=== PATIENT | female | born 2000 | race Caucasian/White ===

== ENCOUNTER 2023-09-26 04:57 | Inpatient (IN) | payer OTHER, SELFPAY ==
[2023-09-26] VITALS (48 sets, daily range): BP systolic 92–133; BP diastolic 37–78; PULSE 54–108; RESP 15–20; TEMP 36.1–36.6; O2SAT 96–100; BMI 42.0
--- NOTE | 2023-09-26 05:33 | LDADM ---
This patient, Sriram Ghosh, was admitted to Labor/Delivery/Recovery 120 on 09/26/23 at 04:57. Plans for labor, pain management and were discussed with patient. Patient/family oriented to hospital policies and general routines including ID bracelet, bed and alarms, visiting hours, pain management, procedures, bathroom and other care routines, personal items, smoking policy, room service/diet and guest tray routines, security routines, and visiting hours. Patient/Family are encouraged to report perceived risks to care and to ask questions if they do not understand what they are told or what they should do. See OBIX for further documentation.
[2023-09-26 05:56] LABS: Basophils Absolute Auto 0.1 K/mm3 (0.0-0.1); Basophils Percent Auto 0.4 % (0.2-1.2); Eosinophils Absolute Auto 0.2 K/mm3 (0-0.3); Eosinophils Percent Auto 1.6 % (0-4.4); Hemoglobin 11.3 g/dL (12.0-15.0); Immature Granulocyte Absolute 0.16 K/mm3 (0.00-0.031); Immature Granulocyte Percent A 1.4 % (0-0.5); Lymphocytes Absolute Auto 1.62 K/mm3 (0.9-3.2); Lymphocytes Percent Auto 14.2 % (18.3-44.2); Mean Corpuscular HGB Conc 32.3 g/dl (32-36); Mean Corpuscular Hemoglobin 27.1 pg (26-34); Mean Corpuscular Volume 83.9 fl (80-100); Mean Platelet Volume 10.1 fl (7.4-10.4); Monocytes Absolute Auto 0.9 K/mm3 (0.1-0.6); Monocytes Percent Auto 7.9 % (2.6-8.5); Neutrophils Absolute Auto 8.5 K/mm3 (1.3-6.7); Neutrophils Percent Auto 74.5 % (45.5-73.1); Platelet Count Result 301 k/mm3 (150-375); Red Blood Count 4.17 M/mm3 (4.2-5.4); Red Cell Distribution Width 13.6 % (11.5-14.5); White Blood Count 11.4 K/mm3 (4.5-10.0)
[2023-09-26] MEDS: ACETAMINOPHEN 500 MG TABLET 1000 MG PO (05:56)
[2023-09-26] MEDS: LACTATED RINGERS 1,000 ML 125 ML IV CONT ×2 (05:57→06:21)
--- NOTE | 2023-09-26 06:42 | WPDANESEPPF ---
Anes - Initial Pre Proc Eval Procedure: Operation Date: 09/26/23 07:30 Proposed Procedures p Section - Sami Kirkpatrick MD Date/Time: 09/26/23 06:42 Surgeon: Sami Kirkpatrick MD Pre Op Diagnosis: Scheduled C/S Patient Data Age: 22 Gender: F Height: 1.63 m Weight: 111 kg Last Vital Signs Pulse 88 09/26/23 06:30 BP 125/66 09/26/23 06:30 O2 Del Method Room Air 09/26/23 05:33 Allergies Allergy/AdvReac Type Severity Reaction Status Date / Time No Known Allergies Allergy Verified 09/09/23 13:52 Home Medications Medication Instructions Recorded Confirmed Type cyclobenzaprine 10 mg tablet 10 mg PO HS PRN stress 09/09/23 09/09/23 History prenat.vits,dorota,[id number] 1 tablet 09/09/23 History Laboratory Tests 09/26/23 05:43 WBC 11.4 H K/mm3 (4.5-10.0) RBC 4.17 L M/mm3 (4.2-5.4) Hgb 11.3 L g/dL (12.0-15.0) Hct 35.0 L % (37.0-47.0) MCV 83.9 fl (80-100) MCH 27.1 pg (26-34) MCHC 32.3 g/dl (32-36) RDW 13.6 % (11.5-14.5) Plt Count 301 k/mm3 (150-375) MPV 10.1 fl (7.4-10.4) Immature Gran % (Auto) 1.4 H % (0-0.5) Neut % (Auto) 74.5 H % (45.5-73.1) Lymph % (Auto) 14.2 L % (18.3-44.2) Treasure % (Auto) 7.9 % (2.6-8.5) Eos % (Auto) 1.6 % (0-4.4) Baso % (Auto) 0.4 % (0.2-1.2) Lymph # (Auto) 1.62 K/mm3 (0.9-3.2) Treasure # (Auto) 0.9 H K/mm3 (0.1-0.6) Eos # (Auto) 0.2 K/mm3 (0-0.3) Baso # (Auto) 0.1 K/mm3 (0.0-0.1) Abs Immat Gran (auto) 0.16 H K/mm3 (0.00-0.031) Absolute Neuts (auto) 8.5 H K/mm3 (1.3-6.7) Absolute Nucleated RBC 0.000 K/mm3 (0.0-0.012) Nucleated RBC % 0.0 % (0.0-0.2) RPR Pending HIV 1&2 Ab/P24 Ag 4thGn Pending Blood Type Pending Antibody Screen Pending Patient hx anesthesia problems: none Family hx anesthesia problems: none Results Review: All pre-operative results and documents have been reviewed as part of the pre-operative evaluation. [facility] Family History Family History (Updated 09/09/23 @ 13:57 by Kayla oLzano RN) Grandparent Breast cancer Social History Social History Smoking status: Former smoker Tobacco type: cigarettes Second hand tobacco smoke exposure: No Substance use: never Do You Feel Safe in your Home?: Yes Lack of Transportation: No Lack of Food: Never True Current Housing: I Have Housing Concerned About Future Housing: No Difficulty Paying Gas/Electric Bills: No Difficulty Paying for Meds: No Currently Unemployed: No Education: Grade School Difficulty w/ Childcare or Family Care: No Spiritual care concerns: No Anes - Eval Final PreProcedure Day of Procedure 09/26/23 06:42 Patient weight: morbidly obese Heart: regular rate and rhythm Lungs: clear to auscultation and normal air movement Airway: Mallampati scale class II Neurological: alert and oriented Last oral intake: >/= 8 hours ASA classification: III Emergent: no Anesthetic plan: proceed Anesthesia type and monitoring: regional spinal and standard monitoring Results Review: All pre-operative results and documents have been reviewed as part of the pre-operative evaluation. Informed Consent: The patient's anesthetic plan and its attendant risks and benefits were discussed with the patient/family/POA. Questions were solicited and answers provided to the satisfaction of the patient/family/POA.
[2023-09-26 06:47] LABS: HIV 1/2 Ab P24 Ag Result Negative (Negative)
--- NOTE | 2023-09-26 07:20 | PM.IMHP ---
H&P: HPI History of Present Illness Date/Time: 09/26/23 07:20 Chief Complaint: repeat c section Narrative: Patient is a 22 year old at 39w1d who presents for repeat c section, indicated for hx of two c sections. Her has been otherwise complicated by cystic fibrosis carrier. She denies strong contractions, leakage of fluid or vaginal bleeding. She reports good movement. She denies nausea, vomiting, abdominal pain, or dysuria. Review of Systems Review of Systems: All systems reviewed & are unremarkable except as noted in HPI and below PMFSH Family History Family History Grandparent Breast cancer Social History Social History Smoking status: Former smoker Tobacco type: cigarettes Second hand tobacco smoke exposure: No Substance use: never Do You Feel Safe in your Home?: Yes Lack of Transportation: No Lack of Food: Never True Current Housing: I Have Housing Concerned About Future Housing: No Difficulty Paying Gas/Electric Bills: No Difficulty Paying for Meds: No Currently Unemployed: No Education: Grade School Difficulty w/ Childcare or Family Care: No Spiritual care concerns: No Meds Home Medications and Allergies Home Medications Medication Instructions Recorded Confirmed Type cyclobenzaprine 10 mg tablet 10 mg PO HS PRN stress 09/09/23 09/09/23 History prenat.vits,dorota,[id number] 1 tablet 09/09/23 History Allergies Allergy/AdvReac Type Severity Reaction Status Date / Time No Known Allergies Allergy Verified 09/09/23 13:52 Vital Signs Vital Signs - 24 hr 09/26/23 05:33 09/26/23 06:02 09/26/23 06:15 Pulse Rate 82 84 Blood Pressure 125/69 122/66 Oxygen Delivery Room Air 09/26/23 06:30 09/26/23 06:45 09/26/23 07:00 Pulse Rate 88 87 91 Blood Pressure 125/66 126/75 122/68 Oxygen Delivery 09/26/23 07:16 Pulse Rate 87 Blood Pressure 126/46 L Oxygen Delivery Exam Const: General: comfortable and no acute distress HENMT: Mouth: Yes moist mucous membranes Eyes: General: appearance normal, both eyes and all related structures Resp: Effort & Inspection: normal respiratory effort Cardio: Rate: regular rate Extrem: General: normal to inspection Psych: Mental Status: mental status grossly normal H&P: Results Labs Labs: Short CBC 09/26/23 Range/Units 05:43 WBC 11.4 H (4.5-10.0) K/mm3 Hgb 11.3 L (12.0-15.0) g/dL Hct 35.0 L (37.0-47.0) % Plt Count 301 (150-375) k/mm3 Assessment and Plan Assessment and plan (1) Hx of section: Code(s): Z98.891 - History of uterine scar from previous surgery Status: Acute Assessment and Plan: - hx of c section x2 - risks and benefits of repeat c section discussed, patient desires repeat c section - otherwise uncomplicated - will proceed with repeat c section
[2023-09-26] MEDS: FAMOTIDINE 20 MG/2 ML VIAL IV PUSH (07:21)
[2023-09-26] MEDS: ONDANSETRON INJ 4 MG/2 ML VIAL IV PUSH (07:21)
[2023-09-26] MEDS: ceFAZolin 2 GM/D5W 50 ML 2 GM/50 ML BAG IVPB (07:30)
[2023-09-26] MEDS: OXYTOCIN 30 UNITS/NS 500 ML 30 UNITS/500 ML BAG 125 UNITS IV CONT (10:10)
[2023-09-26] MEDS: MORPHINE SULFATE INJ (*CRX) 10 MG/ML AMP 2.5 MG IV PUSH (10:37)
--- NOTE | 2023-09-26 11:05 | PC.NURSE ---
Patient transferred to post room #284 via stretcher.. Support person present. Oriented to unit, room, information board, rooming in, admission packet and security measures. Patient verbalizes understanding.
--- NOTE | 2023-09-26 11:49 | W.PM.OBCSD ---
OB - Delivery Note Procedure Delivery date: 09/26/23 Pre-op diagnosis: Previous Delivery (x2) Post-op Diagnosis: Same Delivery monitor: External FHT Prior to decision for section, ACOG/SMFM labor guidelines were considered and discussed with the patient and staff. Decision made to proceed with the section.: Yes Procedure Performed: Repeat Secondary branch: low cervical, transverse Surgeon: Sami Kirkpatrick MD Anesthesia type: Epidural Description of Procedure/Findings: The patient was taken to the operating room where she was placed in the dorsal supine position with a leftward tilt. The electronic monitor was placed and heart rate was found to be reassuring. She was prepped and draped in the normal sterile fashion, and anesthesia was checked to be adequate. A Pfannenstiel skin incision was made with the scalpel and carried through to the underlying layer of fascia with the scalpel. The fascia was incised in the midline and the incision extended laterally with the Moser scissors. The superior aspect of the fascial incision was then grasped with Ignacio clamps, elevated, and the underlying rectus muscles dissected off bluntly and with Moser scissors. Attention was then turned to the inferior aspect of the fascial incision, which in similar fashion was grasped, elevated, and the rectus muscles dissected off.? The rectus muscles were then in the midline, and the peritoneum entered bluntly. The peritoneal incision was extended superiorly and inferiorly with good visualization of the bladder. With the bladder blade providing retraction and visualization, the lower uterine segment was incised in a transverse fashion with the scalpel. The uterine incision was then extended laterally. The bladder blade was removed and the 's head was elevated and delivered atraumatically. The remainder of the infant was then delivered without difficulty, and the 's nose and mouth were suctioned with the bulb suction. The umbilical cord was doubly clamped and cut. The infant was then handed off to the waiting nursing staff. Specimens then obtained as listed below. The placenta was then removed manually and the uterus was exteriorized and cleared of all clots and debris. The uterine incision was repaired with 0-Monocryl in a running, interlocked fashion. A second layer of the same suture was used to imbricate the incision and obtain hemostasis. The posterior cul-de-sac was manually cleared of all clots and debris. The uterus was returned to the abdomen. The gutters were then manually cleared of all clots and debris.? The uterine incision was visualized to be hemostatic. The fascia was reapproximated with 0-Vicryl in a running fashion. The subcutaneous tissues were irrigated with warmed normal saline, and hemostasis was assured. The skin was closed with subcutaneous sutures. Fundal pressure was applied to express remaining intrauterine clots and debris. The patient tolerated the procedure well. Sponge, lap, and needle counts were correct times three per nursing. The patient was taken to the recovery room in stable condition. Specimen: No Estimated Blood Loss: 350 Pathology: None sent Complications: No immediate complications Condition: Stable Disposition: Floor [place] Baby Weeks of gestation at delivery: 39 Infant gender: Female Weight (pounds): 7 Weight (ounces): 11 presentation: vertex position: Left Occiput Posterior Placenta delivery description: Expressed Cord Vessel Description: 3 Vessels and Delayed Cord Clamping
[2023-09-26 13:56] LABS: Rapid Plasma Reagin Non-Reactive (NonReactive)
[2023-09-26] MEDS: DEXTROSE 5%/0.45% SOD CHL 1,000 ML 125 ML IV CONT (14:39)
[2023-09-26] MEDS: KETOROLAC 15 MG/ML VIAL (*BKC) IV PUSH ×2 (14:41→21:15)
[2023-09-26] MEDS: SIMETHICONE 80 MG TAB.CHEW PO ×2 (14:44→17:08)
[2023-09-26] MEDS: ACETAMINOPHEN 325 MG TABLET 650 MG PO ×2 (14:44→21:15)
[2023-09-26] MEDS: LIDOCAINE 5% PATCH 1 PATCH TRANSDERM (14:45)
[2023-09-26] MEDS: DOCUSATE SODIUM 100 MG CAPSULE PO (17:08)
--- NOTE | 2023-09-26 17:46 | PC.NURSE ---
1135. Introductions were made, then consulted with patient to assess needs related to . Mother led the conversation with her?plans to feed?her infant and the?experience so far. Encouraged understanding of the benefits of skin to skin (demonstrating unwrapping infant and placing upright on her chest), stimulating with massage touch, changing positions to encourage wakefulness, how to watch for early feeding cues, responsive feeding, feeding on demand (aiming for 8-12 times in 24 hours, about every 2-3 hours), milk production, building/maintaining a milk supply, duration of feeding, signs of adequate intake/output and how to record on the feeding sheet. Mother works well with her with encouragement and education. Reviewed positioning and ear, shoulder, hip alignment, supporting the breast to facilitate a deep latch, asymmetrical latch (off-center), leading with the chin with a big, open, wide gape and body close to mother. latched optimally to the [right] breast in [cross cradle] position. Education given to the mother of how to visualize the suckling (with good rocking jaw motion), swallows (dropping of the lower jaw) and how to listen for drinking at the breast (the ka sound). Infant was [able] to maintain latch without pain to mother protecting the nipple with optimal positioning and latching. Reviewed comfort measures of healing with a warm, wet washcloth to rinse breast, then leave open to air-dry, good handwashing when or touching the breast/nipples to prevent infection. Mother voiced understanding of skin to skin, stimulating with massage touch, responsive feedings, hand expressed colostrum, talking to infant to encourage if it has been 2 -2.5 hours since the start of the last , to call if infant does not latch, or if there is discomfort with . Resources used for education were facilitated with the [mom and baby guide]. Parents voiced understanding of information, demonstrated learning and will call if there is a request for assistance. Reported to the Primary RN.
[2023-09-26] MEDS: diphenhydrAMINE HCl INJ 50 MG/ML VIAL 25 MG IV PUSH (19:30)
[2023-09-27] MEDS: IBUPROFEN 600 MG TABLET PO ×3 (03:00→15:00)
[2023-09-27] MEDS: ACETAMINOPHEN 325 MG TABLET 650 MG PO ×4 (03:00→21:00)
[2023-09-27 04:57] LABS: Basophils Percent Auto 0.3 % (0.2-1.2); Eosinophils Absolute Auto 0.2 K/mm3 (0-0.3); Eosinophils Percent Auto 1.6 % (0-4.4); Hematocrit 33.5 % (37.0-47.0); Hemoglobin 10.6 g/dL (12.0-15.0); Immature Granulocyte Absolute 0.15 K/mm3 (0.00-0.031); Immature Granulocyte Percent A 1.3 % (0-0.5); Lymphocytes Absolute Auto 1.89 K/mm3 (0.9-3.2); Lymphocytes Percent Auto 16.4 % (18.3-44.2); Mean Corpuscular HGB Conc 31.6 g/dl (32-36); Mean Corpuscular Hemoglobin 26.9 pg (26-34); Mean Platelet Volume 10.4 fl (7.4-10.4); Monocytes Percent Auto 8.6 % (2.6-8.5); Neutrophils Absolute Auto 8.3 K/mm3 (1.3-6.7); Neutrophils Percent Auto 71.8 % (45.5-73.1); Platelet Count Result 261 k/mm3 (150-375); Red Blood Count 3.94 M/mm3 (4.2-5.4); Red Cell Distribution Width 13.8 % (11.5-14.5); White Blood Count 11.6 K/mm3 (4.5-10.0)
[2023-09-27 08:15] VITALS: BP 126/71; PULSE 79; RESP 16; TEMP 36.6; O2SAT 99
[2023-09-27] MEDS: MULTIVIT/MIN/PREN/FOL AC/IRON TABLET 1 TAB PO (09:17)
[2023-09-27] MEDS: DOCUSATE SODIUM 100 MG CAPSULE PO ×2 (09:18→17:01)
[2023-09-27] MEDS: SIMETHICONE 80 MG TAB.CHEW PO ×3 (09:18→17:01)
--- NOTE | 2023-09-27 11:15 | PC.NURSE ---
Mother verbalizes she is able to independently latch with appropriate positioning and alignment. She complains of nipple discomfort. She states she believes her nipples are just sore and that it isn't due to a latch issue. She has lanolin to use as needed. is currently meeting outcomes for weight, output, jaundice, blood sugar and feeding frequencies of 8-12 times in 24 hours. She was advised to wake infant because it had been over 3 hours since the last feeding. Mother states infant has been sleepy, and we discussed cluster feeding on night 2 and that if mom can provide effective and frequent feedings today it may make the night feedings less frequent. Observed a feeding on the left breast in football hold. Mother latched infant a few times until she felt it was a deep latch. The infant was well aligned and was having frequent swallows. Mother declines any additional assistance or education at this time. Mother is encouraged to call for assistance if her infant doesn?t latch, pain with latching, questions or concerns. Mother voiced understanding of information shared along with the mom/baby guide for an additional resource. Reported to the Primary RN.
[2023-09-27] MEDS: HYDROcodone/acetaminophen (*CRX) 5-325 MG TABLET 1 TAB PO (11:16)
--- NOTE | 2023-09-27 13:37 | WPDANLDPN2 ---
Anes-Prog Note L&D Date/Time: 09/27/23 13:37 Comfortable throughout: section Neuraxial method: spinal Epidural/Spinal procedure site: clean & non-tender Neuro status: Neuro function grossly intact. Cardiovascular status: normal Respiratory status: normal Airway patency: baseline Mental status: baseline Post-Op hydration status: normal Vital Signs: Last Vital Signs Temp 36.6 C 09/27/23 08:15 Pulse 79 09/27/23 08:15 Resp 16 09/27/23 08:15 BP 126/71 09/27/23 08:15 Pulse Ox 99 09/27/23 08:15 O2 Del Method Room Air 09/27/23 08:30 Pain score (VAS): 1 I/O: Intake & Output 09/26/23 09/27/23 09/27/23 23:59 07:59 15:59 Intake Total 240 0 Output Total 2850 400 Balance -2610 -400 0 Post-procedural complaints: none Patient feedback: Patient satisfied with anesthetic care.
--- NOTE | 2023-09-27 13:37 | WPDANLDNPN2 ---
Anes-Prog Note L&D-Neuraxial Date/Time: 09/27/23 13:37 Neuraxial medications: intrathecal PF morphine Opiod-related complaints: none Patient feedback: Patient satisfied with post-operative pain management.
[2023-09-27] MEDS: LIDOCAINE 5% PATCH 1 PATCH TRANSDERM (15:00)
[2023-09-27] MEDS: HYDROcodone/acetaminophen (*CRX) 10-325 MG TABLET 1 TAB PO ×2 (17:03→19:51)
[2023-09-27 20:00] VITALS: BP 131/80; PULSE 81; RESP 16; TEMP 36.7; O2SAT 96
[2023-09-28] MEDS: ACETAMINOPHEN 325 MG TABLET 650 MG PO ×4 (03:18→21:35)
[2023-09-28] MEDS: IBUPROFEN 600 MG TABLET PO ×4 (03:18→21:34)
[2023-09-28] MEDS: HYDROcodone/acetaminophen (*CRX) 10-325 MG TABLET 1 TAB PO (04:17)
[2023-09-28] MEDS: SIMETHICONE 80 MG TAB.CHEW PO ×2 (06:47→15:29)
[2023-09-28] MEDS: MULTIVIT/MIN/PREN/FOL AC/IRON TABLET 1 TAB PO (06:47)
[2023-09-28] MEDS: DOCUSATE SODIUM 100 MG CAPSULE PO (06:47)
[2023-09-28 08:15] VITALS: BP 137/80; PULSE 79; RESP 16; TEMP 37.2; O2SAT 98
--- NOTE | 2023-09-28 09:20 | PM.OBPNVD ---
OB - PN: Subj Subjective Date/time seen: 09/28/23 09:20 Interval history: POD#2 Doing well, pain well controlled Emptying bladder without issue Passing flatus Tolerating general diet , doing well OB - PN: Obj Data Labs 09/27/23 03:44 OB - PN A/P Assessment and Plan (1) S/P : Code(s): Z98.891 - History of uterine scar from previous surgery Status: Acute Plan day: 2 Plan: routine care Time Spent With Patient Time: Total time spent is greater than 50% in coordination of care (as documented) at patient's floor/unit and/or counseling patient: Review of Systems Review of Systems: All systems reviewed & are unremarkable except as noted in HPI and below Exam Const: General: comfortable and no acute distress Resp: Effort & Inspection: normal respiratory effort GI: GI Palp: Yes Soft to palpation and No Tenderness to palpation present (GI) Other: incision c/d/i
--- NOTE | 2023-09-28 11:50 | PC.NURSE ---
Mother verbalizes she is able to independently latch with appropriate positioning and alignment. She denies any nipple discomfort and is responsively . Infant is currently meeting outcomes for weight, output, jaundice, blood sugar and feeding frequencies of 8-12 times in 24 hours. Mother say she feels like her milk is in. Mother declines any additional assistance or education at this time. Mother is encouraged to call for assistance if her doesn?t latch, pain with latching, questions or concerns. Mother voiced understanding of information shared along with the mom/baby guide for an additional resource. Reported to the Primary RN.
[2023-09-28] MEDS: LIDOCAINE 5% PATCH 1 PATCH TRANSDERM (15:29)
[2023-09-28 18:30] VITALS: BP 129/72; PULSE 72; RESP 16; RESP 18; TEMP 37.1; O2SAT 99
--- NOTE | 2023-09-28 18:43 | PC.NURSE ---
Upon initial assessment at 1830, baby was found to be asleep in mothers arms in bed between pillows. Woke patient up at this time and removed baby to place in bassinet. Education given to mother regarding safe sleep practices. Mother verbalizes understanding. Mother states she was still tired upon leaving room. Baby was still in bassinet next to mother upon leaving room.
[2023-09-28] MEDS: HYDROcodone/acetaminophen (*CRX) 5-325 MG TABLET 1 TAB PO (20:39)
[2023-09-29] MEDS: ACETAMINOPHEN 325 MG TABLET 650 MG PO ×2 (04:00→10:42)
[2023-09-29] MEDS: IBUPROFEN 600 MG TABLET PO ×2 (04:00→10:42)
[2023-09-29 07:50] VITALS: BP 136/76; PULSE 79; RESP 16; TEMP 36.9; O2SAT 99
[2023-09-29] MEDS: MULTIVIT/MIN/PREN/FOL AC/IRON TABLET 1 TAB PO (07:57)
[2023-09-29] MEDS: SIMETHICONE 80 MG TAB.CHEW PO (07:57)
[2023-09-29] MEDS: DOCUSATE SODIUM 100 MG CAPSULE PO (07:57)
--- NOTE | 2023-09-29 08:00 | PC.NURSE ---
Breast pump provided due to mother's request. Her breasts are feeling full and she wants to pump to comfort after breastfeedings. We discussed engorgement and not pumping to empty each time. Patient had not gotten a pump through her insurance yet. She chose a Zomee pump and was measured for a 24mm flange. Instructions given on cleaning, care, usage, that there should be no pain, pumping schedule for milk production, collection, and storage of human milk. Patient was assessed for correct placement, flange size, to pump for comfort. Mother voiced understanding of the education shared along with mom/baby guide and the pump measurement, flange fit handout for additional resource information. Reported to the Primary RN.
--- NOTE | 2023-09-29 08:16 | P.PNOB_ITS ---
OB - PN: Subj Subjective Date/time seen: 09/29/23 08:16 Interval history: POD#2 Doing well, pain well controlled Emptying bladder without issue Passing flatus Tolerating general diet , doing well Patient comments: no complaints, pain well controlled and tolerating diet OB - PN: Obj Data Labs 09/27/23 03:44 OB - PN A/P Plan day: 2 Plan: routine care and discharge home Time Spent With Patient Time: Total time spent is greater than 50% in coordination of care (as documented) at patient's floor/unit and/or counseling patient: Exam Const: General: comfortable and no acute distress Resp: Effort & Inspection: normal respiratory effort Auscultation: no rales , no rhonchi and no wheezes Cardio: Rate: regular rate Heart sounds: no click, no murmurs and no rubs GI: GI Palp: Yes Soft to palpation and No Tenderness to palpation present (GI) Auscultation: normal bowel sounds Extrem: General: normal to inspection, no pedal edema and no calf tenderness
--- NOTE | 2023-09-29 08:16 | PM.OBDSVD ---
DS: Admitting Diagnosis Discharge Date September 29, 2023 Admitting Diagnosis term OB - DS: Summary OB Procedures : None OB Procedures Intrapartum: OB Procedures: : None Peripartum Data Procedures: Procedures Operation Date: 09/26/23 07:30 Actual Procedure Side Surgeon p Section Not Applicable Sami Kirkpatrick MD Time Spent with Patient Time attestation: Total time spent providing and/or coordinating discharge services: Discharge Plan Discharge Discharging Clinician: Daren Livingston Patient Disposition: Home, Self-Care Activity: pelvic rest Diet: regular Patient Instructions: Antibiotic Form Stand Alone Forms: General Discharge Information Follow-up/Referrals: Daren Livingston MD [Physician] - Discharge Medications: Continued cyclobenzaprine 10 mg Tablet 10 mg PO HS PRN (Reason: stress) #2 Tablet 1 tablet Date of admission: 09/26/23 04:57 Primary Care Provider: UNKNOWN,DOCTOR Admitting Provider: Sami Kirkpatrick Attending physician on admission: Sami Kirkpatrick Condition: Stable
--- NOTE | 2023-09-29 12:54 | WPDANLDPN2 ---
Anes-Prog Note L&D Date/Time: 09/29/23 12:54 Comfortable throughout: section Neuraxial method: spinal Epidural/Spinal procedure site: clean & non-tender Neuro status: Neuro function grossly intact. Cardiovascular status: normal Respiratory status: normal Airway patency: baseline Mental status: baseline Post-Op hydration status: normal Vital Signs: Last Vital Signs Temp 36.9 C 09/29/23 07:50 Pulse 79 09/29/23 07:50 Resp 16 09/29/23 07:50 BP 136/76 09/29/23 07:50 Pulse Ox 99 09/29/23 07:50 O2 Del Method Room Air 09/28/23 18:30 Pain score (VAS): 0 Post-procedural complaints: none Patient feedback: Patient satisfied with anesthetic care.
[2023-09-30 11:37] VITALS: BP 125/81; PULSE 91; RESP 18; TEMP 36.7; O2SAT 98
== END 2023-09-29 11:37 | disposition home or self-care (01) | DRG 540 ==
LOC: ANHLDR 05:29 → ANHOB2 09-29 08:17 → ANHLDR 09-30 08:45 → ANHOB2 09-30 08:45
PROVIDERS: Admitting Provider Obstetrics & Gynecology; Visit Provider Obstetrics & Gynecology
PROC: 10D00Z1 Extraction of Products of Conception, Low, Open Approach (ICD-10-PCS; CPT 59514; principal; 2023-09-26 07:30)
DX: O34.211 Maternal care for low transverse scar from previous cesarean delivery (principal); Z37.0 Single live birth; Z3A.39 39 weeks gestation of pregnancy; O99.824 Streptococcus B carrier state complicating childbirth; Z14.1 Cystic fibrosis carrier
CPT/HCPCS: 36415; 85025; 86592; 86703; 86850; 86900; 86901; A9270; G0432; J0690; J1200; J1596; J1885; J2270; J2274; J2371; J2405; J2590; J7120

== ENCOUNTER 2024-06-24 16:24 | Emergency (ER) | payer OTHER, SELFPAY ==
--- OUTSIDE RECORDS SUMMARY | 2024-06-24 16:26 | XMS_ITS | Data Portability ---
Author Organization [facility] [place] Address [address] [place] [address] Assessment Encounter Date Assessment Date Assessment LastModified by Organization Details LastModified Time 09/16/2023 09/16/2023 Patient is _37__weeks . Discussed plan. Not available 09/16/2023 14:12:30 Plan of Treatment Reminders Order Date Submit Date Provider Last Modified By Organization Details Last Modified Time Details Appointments IRREGULAR BLEEDING 2024 01:15P DENIS Barrios Not available Not available Not available Lab None recorded. Referral None recorded. Procedures None recorded. Surgeries section (SURG) [address], [address], 09/26/2023 14:01:00 Imaging None recorded. Medication Orders sertralin e 25 mg tablet 2023 024 [id number], [address], [place], [id number], 10/07/2023 12:49:36 Patient TargetsNo targets recorded. Patient InstructionsNo instructions recorded. Reason for Referral None Reported. Results Created Date Observation Date Name Description Value Unit Range Abnormal Flag Note LastModifiedBy Organization Detail LastModifiedTime 09/06/19 24 09/06/2023 CULTU RE: GROUP B STREP SCREE N result report SEE RESULT S BELOW abnormal Test: Cultu re: Group B Strep Scree n - Vagin al/Re ctal Speci men Sourc e: Vagin a/Rec latonia Speci men Type: Vagin al/Re ctal Speci men Date: 024 1747 Resul t Date: 2023 1714 Resul t Statu s: Final resul t Pator mal: Yes Emily nacho Lab: [facility] [address] [facility] [id number] Tel: CULTU RE ----- ----- ----- --- Posit odilon for Strep tococ cus agala ctiae (Grou p B) (Abno rmal) Strep tococ cus agala ctiae (Beta strep Group B Strep ) remai ns unive rsall y susce ptibl e to penic illin , cefaz shereen and vanco mycin . If clind amyci n is being consi dered for intra partu m proph ylaxi s, pleas e conta ct the lab withi n 5 days. Not Available [facility] (Lab) [address] [facility] [address], [place], [address], 09/09/2023 18:16:27 Result Notes None recorded. Problems Name Problem SNOMED Code Status Onset Date Resolution Date Notes Provider Name and Address Organization Details Recorded Time Pregnanc y 94600458 Completed 202309/29/2023 Rissa Holley [facility] 4 11:52:34 Cystic fibrosis 741098959 Completed Carrier Sandy Sales CNM [address], [place], [address], [facility] 4 14:15:16 Seizure disorder 748811535 Completed childhoo d, not currentl y on meds Sandy Sales CNM [address], [place], [address], [facility] 4 14:15:16 Deliveri es by [id number] Completed repeat Sandy Sales CNM [address], [place], [address], [facility] 4 14:15:16 Problem Notes None recorded. Procedures Surgical History Date Name Laterality Status Provider Name and Address Organization Details Recorded Time 4 SECTION (SURG) completed Michelle Georges [facility] 09/26/2023 14:01:00 4 tooth extraction [address] [facility] 04/19/2023 14:15:[address] [facility] 02/15/2023 15:59:55 0 Date of Last Pap Smear completed [facility] 03/22/2023 13:04:[address] [facility] 02/15/2023 15:59:40 Imaging Results None recorded. Procedure Notes None recorded. Medical Equipment None Reported. Allergies No known drug allergies Medications Name Sig Start Date Stop Date Status Note LastModified by Organization Details LastModified Time cyclobenzap rine 10 mg tablet TAKE 1 TABLET BY MOUTH THREE TIMES DAILY active Not Available Not Available No t Available penicillin V potassium 500 mg tablet TAKE 1 TABLET BY MOUTH EVERY 8 HOURS UNTIL ALL TAKEN 04/19 completed Not Available Not Available Not Available metronidazo le 500 mg tablet TAKE 1 TABLET BY MOUTH TWICE DAILY FOR 7 DAYS DIRECTED 06/19 completed Not Available Not Available Not Available acetaminoph en 500 mg tablet TAKE 1 TABLET BY MOUTH EVERY 6 HOURS NEEDED FOR PAIN 04/19 completed Not Available Not Available Not Available oxycodone-a cetaminophe n 5 mg-325 mg tablet TAKE 1 TABLET BY MOUTH EVERY 6 HOURS 11/01 completed Not Available Not Available Not Available cephalexin 500 mg capsule TAKE 1 CAPSULE BY MOUTH EVERY 6 HOURS FOR 7 DAYS 11/01 completed Not Available Not Available Not Available ibuprofen 400 mg tablet TAKE 1/2 TABLET BY MOUTH EVERY 6 HOURS NEEDED FOR PAIN 02/15 completed Not Available Not Available Not Available sertraline 25 mg tablet Take 1 tablet every day by oral route. active Not Available Not Available No t Available amoxicillin 875 mg-potassiu m clavulanate 125 mg tablet TAKE 1 TABLET BY MOUTH 2 TIMES DAILY FOR 5 DAYS. 02/15 completed Not Available Not Available Not Available nitrofurant oin monohydrate /macrocryst als 100 mg capsule TAKE 1 CAPSULE BY MOUTH EVERY 12 HOURS 04/19 completed Not Available Not Available Not Available active Not Available Not Avai lable Not Available Aurovela Fe 1-20 (28) 1 mg-20 mcg (21)/75 mg (7) tablet Take 1 tablet every day by oral route. active Not Available Not Available No t Available Vitals Date Recorded Body height Body mass index (BMI) Systolic blood pressure Diastolic blood pressure Provider Name and Address Organization Details Last Updated DateTime 09/06/2023 162.56 cm 41.2 kg/m2 116 mm[Hg] 68 mm[Hg] Alexandria Mejía [facility] 09/06/2023 14:11:11 Date Recorded Body weight Provider Name an d Address Organization Details Last Updated DateTime 09/06/2023 848280.989095 g Rebecca DAMON [address], [place], [address], [facility] 09/06/2023 14:29:20 Date Recorded Body height Body mass index (BMI) Body weight Systolic blood pressure Diastolic blood pressure Provider Name and Address Organization Details Last Updated DateTime 09/16/2023 162.56 cm 41.9 kg/m2 375918.5 3828 g 129 mm[Hg] 76 mm[Hg] Jennifer Song [facility] 14:05:55 Date Recorded Body height Body mass index (BMI) Body weight Systolic blood pressure Diastolic blood pressure Provider Name and Address Organization Details Last Updated DateTime 09/23/2023 162.56 cm 42.4 kg/m2 351052.6 g 130 mm[Hg] 74 mm[Hg] Alexandria Mejía [facility] 12:46:57 Date Recorded Body height Body mass index (BMI) Body weight Systolic blood pressure Diastolic blood pressure Provider Name and Address Organization Details Last Updated DateTime 10/07/2023 162.56 cm 39 kg/m2 394093.4 7 g 119 mm[Hg] 78 mm[Hg] Alexandria Bradyparrish [facility] 12:11:48 Date Recorded Body height Body mass index (BMI) Body weight Systolic blood pressure Diastolic blood pressure Provider Name and Address Organization Details Last Updated DateTime 11/02/2023 162.56 cm 39.8 kg/m2 877485.4 3 g 104 mm[Hg] 70 mm[Hg] Catherine Emerson [facility] 15:52:45 Social History Question Answer Notes LastModified by Organizat ion Details LastModified Time What Is Your Level Of Alcohol Consumption? None Information not available 05/17/2023 Are You Blind Or Do You Have Difficulty Seeing? Yes Information not available 07/13/2023 What Is Your Level Of Caffeine Consumption? Moderate Information not available 05/17/2023 How Much Tobacco Do You Chew? None Information not available 05/17/2023 In The 14 Days Before Symptom Onset, Have You Had Close Contact With A Laboratory-confirme d COVID-19 While That Case Was Ill? No Information n ot available 05/17/2023 In The 14 Days Before Symptom Onset, Have You Had Close Contact With A Person Who Is Under Investigation For COVID-19 While That Person Was Ill? No Information not available 05/17/2023 Have You Been To An Area Known To Be High Risk For COVID-19? No Information not available 05/17/2023 Are You Deaf Or Do You Have Serious Difficulty Hearing? No Information not available 05/17/2023 What Type Of Diet Are You Following? REGULAR Information n ot available 05/17/2023 What Is The Highest Grade Or Level Of School You Have Completed Or The Highest Degree You Have Received? [id number] Information not available 05/17/2023 Are There Any Guns Present In Your Home? No Information not available 05/17/2023 Do You Use Protection During Sex? No Information not available 05/17/2023 Do You Use Your Seat Belt Or Car Seat Routinely? Yes Information not available 05/17/2023 Do You Have Smoke And Carbon Monoxide Detectors In Your Home? Yes Information not available 05/17/2023 How Much Tobacco Do You Smoke? No Information not available 05/17/2023 Do You Feel Stressed (tense, Restless, Nervous, Or Anxious, Or Unable To Sleep At Night)? [id number] Information not available 05/17/2023 Do You Use Any Illicit Or Recreational Drugs? No Information not available 05/17/2023 Do You Use Sunscreen Routinely? No Information not available 05/17/2023 Have You Used IV Drugs? No Information not available 05/17/2023 Sex: Unknown Functional Status Question Answer Note LastModified by Organizat ion Details LastModified Time Do you have difficulty walking or climbing stairs? No [email or web address] Information not available 08/01/2023 Are you able to walk? YESWOREST Information not available 05/17/2023 Are you able to care for yourself? Yes [email or web address] Information not available 08/01/2023 Do you have difficulty dressing or bathing? No [email or web address] Information not available 08/01/2023 What is your exercise level? None Information not available 05/17/2023 Mental Status None recorded. Family History Relationship Description Onset Age of this Age Resolved Age Notes LastModified by Organization Details LastModified Time Mother Asthma [email or web address] Not available 16:08:47 Brother Asthma [email or web address] Not available 1 04/18/2022 16:08:47 Maternal Grandmother Malignant tumor of breast [email or web address] Not available 2022 16:09:08 Maternal Grandmother Diabetes mellitus [email or web address] Not available 2022 16:09:37 Maternal Grandmother Essential hypertension [email or web address] Not available 14:01:39 Maternal Grandmother Disorder of thyroid gland [email or web address] Not available 2022 16:11:49 Maternal Grandfather Diabetes mellitus [email or web address] Not available 2022 16:09:37 Maternal Grandfather Essential hypertension [email or web address] Not available 14:01:39 Medical History Condition Response Allergies (Food, seasonal, environmental ) N Other N Drug/Latex Allergies/Reactions N Blood Transfusion N Breast Cancer N Dermatologic Disorders N Lung Disease N Defects or Inherited Disease N Breast Problem N Gestational Diabetes N Hematologic disorders N Anesthesia Complications N History of STI N Deep Vein Thrombosis N Polycystic ovary syndrome N Anxiety Disorder N Autoimmune disease N Arthritis N Polyps N Infertility N Acid Reflux (GERD) N History of abnormal pap N Cancer N Varicosities N Stroke N Neurologic/Epilepsy N Endometriosis N High Cholesterol N Fibromyalgia N Headaches N Kidney Disease N Heart Problems N Thyroid Problems N Kidney or Bladder Problems N GI Problems N Eating Disorder N Anemia N Art (IVF or FET) N Psychiatric Illness N Ovarian Cancer N Diabetes N Pulmonary (TB, Asthma) N Hepatitis/Liver Disease N No Past Medical History N Eczema N Urinary Tract Infection N Abuse/Domestic Violence N Asthma N Trauma/Violence N Depression/ depression N Heart Disease N Pre-Eclampsia N Hypertension N Osteoporosis N Thrombophilias N Gynecological History Statement/Question Response Date of Last Mammogram Date of LMP 12/26/2022 STIs/STDs Y HPV Vaccine N Current Control Method None Date of Last Colonoscopy Sexually Active? Y Date of DEXA bone scan Date of Last Pap Smear 02/28/2019 Sexual Problems? N Desired Control Method None LMP Definite Obstetrics History GPAL:G 3 P 3 0 0 3 Type Value Full Term 3 Living 3 Total 3 Past Encounters Encounter ID Performer Location Encounter Start Date Encounter Closed Date Diagnosis/Indication Diagnosis SNOMED-CT Code Diagnosis ICD10 Code Diagnosis Note [id number] Irina England [place] [address] [address] 02/15/2023 15:06:07 02/15/2023 16:25:57 [id number] YESSENIA CHAKRABORTY MD [place] [address] [address] 02/15/2023 15:13:03 02/15/2023 16:51:25 test positive 000821365 Z32.01 1. Exam today within normal limits.2. Ultrasound today confirms GA and viability. EDC . GC/Clamydi a testing done: will f/u as indicated. 4. ACOG guidelines and plan of care for reviewed with patient. All questions answered.5 . Return to office at 12 weeks for new OB visit6. Will need new OB labs at next visit.7. Genetic screening: desires. Seizure disorder 7362643 02 G40.909 - no meds, no seizures since childhood Previous u terine surgical scar 067941457 Z98.891 - prior c section x2- desires RCS [id number] YESSENIA CHAKRABORTY MD [place] [address],[place] [address] 03/22/2023 12:40:01 03/26/2023 10:40:29 screening 659017645 Z36.0 Genetic in vestigation procedure 57574751 Z31.430 Routine an tenatal care 920295758 Z34.90 [id number] Chrissie Mckinney [place] [address],[place] [address] 03/24/2023 15:08:03 03/24/2023 16:31:19 screening 791454528 Z36.82 Z3A.12 Z36.87 [id number] YESSENIA CHAKRABORTY MD [place] [address],[place] [address] 04/19/2023 13:44:32 04/19/2023 14:46:36 Routine care 848523194 Z34.90 [id number] [facility] [address],[place] [address] 05/17/2023 14:42:27 05/17/2023 15:47:57 screening for malformation 332633395 Z36.3 Z3A.20 [id number] YESSENIA CHAKRABORTY MD [place] [address],[place] [address] 05/17/2023 14:42:44 05/17/2023 16:25:48 Dizziness 818087928 R42 Vaginitis 69274738 N76.0 Gestation period, 20 weeks 51323905 Z3A.20 [id number] [facility] [address],[place] [address] 06/08/2023 13:34:52 06/08/2023 13:56:38 Medical examination for suspected condition 944559189 Z03.72 Z3A.23 [id number] YESSENIA CHAKRABORTY MD [place] [address],[place] [address] 06/20/2023 15:59:25 06/27/2023 05:51:35 Routine care 322379777 Z34.90 [id number] YESSENIA CHAKRABORTY MD [place] [address],[place] [address] 07/13/2023 14:01:29 07/13/2023 14:33:55 Routine care 381413343 Z34.90 [id number] Daren Livingston MD [place] [address],[place] [address] 08/01/2023 16:54:40 08/01/2023 17:13:56 Routine care 931070981 Z34.83 [id number] Daren Livingston MD [place] [address],[place] [address] 08/22/2023 10:41:47 08/22/2023 11:38:07 Cramp in lower limb 928178733 R25.2 Routine an tenatal care 474628619 Z34.83 [id number] YESSENIA CHAKRABORTY MD [place] [address],[place] [address] 09/06/2023 13:55:16 09/06/2023 14:38:55 Uterine scar from previous surgery affecting 19875442 O34.29 Gestation period, 36 weeks 94559436 Z3A.36 [id number] [facility] [address],[place] [address] 09/16/2023 13:52:47 09/16/2023 14:19:54 Routine care 777945528 Z34.93 Gestation period, 37 weeks 60116248 Z3A.37 continue vitamin [id number] YESSENIA CHAKRABORTY MD [place] [address],[place] [address] 09/23/2023 12:31:37 09/23/2023 13:08:44 Past history of section 781428381 Z98.890 - c section scheduled 09/25 Gestation period, 38 weeks 99973772 Z3A.38 - continue PNV [id number] YESSENIA CHAKRABORTY MD [place] [address],[place] [address] 10/07/2023 12:05:34 10/07/2023 12:58:57 anxiety 7916619644 1708228 O99.345 - EPDS 4- patient feeling more overwhelme d and anxious; mood extremely labile- discussed baby blues vs PPD/PPA- patient desires medical management with sertraline - mood check at 1m PP visit care 77768483 8 Z39.2 S/p c section on . Incision well-heale d without any signs of infection2 . RTC 4wks for post-partu m check [id number] YESSENIA CHAKRABORTY MD [place] [address],[place] [address] 11/02/2023 15:35:16 11/02/2023 16:24:48 care 866746895 Z39.2 S/p RLTCS 4 weeks ago here today for a visit.1. Patient recovering well2. Plans to continue formula feeding3. May be interested in Nexplanon for contracept ion at this time. Risks, benefits, and alternativ es reviewed with the patient4. Patient instructed to follow up in 6 months for well woman exam unless need arises prior Health Concerns Section Related Observation LastModified by Organization Detai ls LastModified Time None Recorded Concern Status LastModified by Organization Details LastModified Time None Recorded Advance Directives Directive None Recorded Payers Encounter Date Sequence Insurance Name Policy Number Policy Beck Covered Member ID Beck Member ID Guarantor Name 09/06/2023 1 [facility] (MEDICAID HMO) [id number] Sriram Ghosh [id number] Sriram Ghosh 09/16/2023 1 [facility] ([facility] [id number] Sriram Ghosh [id number] Sriram Gohsh 09/23/2023 1 [facility] (MEDICAID HMO) [id number] Sriram Ghosh [id number] Sriram Ghosh 10/07/2023 1 [facility] (MEDICAID HMO) [id number] Sriram Ghosh [id number] Sriram Ghosh 11/02/2023 1 [facility] (MEDICAID HMO) [id number] Sriram Ghosh [id number] Sriram Ghosh Notes Date Note Type Note Provider Name and Address Organization Details Recorded Time 10/07/2023 text/html s/p C/S 09/25. Tarik palma presents today for her incision check. Her postop course has been unremarkable. She has minimal spotting, denies pain, fever or any other concerning symptoms. She is combo feeding and her baby is doing well. Her mood is overall good, however feeling overwhelmed and more irritable. No SI/HI. Would like to start antianxiety/antidep ressant medications. YESSENIA CHAKRABORTY MD [address], [place], [address], [facility] 10/07/2023 12:50:56 11/02/2023 text/html S/P RLTCS on 08/29 at 39 weeks gestation. was uncomplicated. Complications with delivery: none. Patient denies any specific problems since delivery. Patient overall feeling well. Patient is formula feeding without problems. Pain resolved. Has not had a period yet. No bleeding. Bowel and bladder function are normal. Pap due 2023. Denies any signs or symptoms of depression. Is coping with parenting well. Patient has been sexually active since delivery, no issue. Patient may be interested in contraception, possibly Nexplanon. YESSENIA CHAKRABORTY MD [address], [place], [address], [facility] 11/02/2023 16:14:50 OBGyn Episode Ob Episode Information Episode Created Date Number of Fetuses Patient Bloodtype Patient rh Status Prepregnancy Weight lbs Domestic Partner Domestic Partner Phone Father Name Metallurgical Engineering Technician Status 02/16/20 23 1 CLOSED Fetus Data First Name Last Name Admitted to NICU Weight (g) Sex Living Outcome Pediatric Complications Fetus ID Race Codes Race Delivery Type 3656.85 8704 F Full Term [id number] Primary Conrado Calculation Initial Conrado Date Initial Exam Date Initial Exam Provider Initial Ultrasound Date Last Menstrual Period Date Ultra Sound Weeks Gestation 0 Eighteen To Twenty Week Conrado Update Ultra Sound Date Fundal Height At Umbil Quickening Date Ultra Sound Latest Weeks Gestation Final Conrado Confirmed By Final Conrado Confirmed Date Final Conrado Date Ultra Sound Latest Days Gestation 0 0 Menstrual History Last Menstrual Date Menses Monthly On Bcp Conception Prior Menses Frequency Hcg Plus Date Menarche Onset Age Delivery Information Delivery Date Delivery Type Labor Anesthesia Weeks Gestation Incision Type Labor Labor Length Hrs Delivered By Post Complications Tubal Sterilization Discharge Date Comments 8 40 Discharge Information Feeding Method Contraceptive Method Maternal HG B and HCT Levels Ob Episode Information Episode Created Date Number of Fetuses Patient Bloodtype Patient rh Status Prepregnancy Weight lbs Domestic Partner Domestic Partner Phone Father Name Metallurgical Engineering Technician Status 03/22/19 24 1 O Positive 189.6 CLOSED Fetus Data First Name Last Name Admitted to NICU Weight (g) Sex Living Outcome Pediatric Complications Fetus ID Race Codes Race Delivery Type 3486.98 85 F true Full Term [id number] Repeat Problems Problem Notes NIPT NL XX Problem Name Start Date End Date Resolution Snomed Code Not e Cystic fibrosis [id number] Yen ier Seizure disorder 211185732 chi ldhood, not currently on meds Deliveries by 04 repeat Conrado Calculation Initial Conrado Date Initial Exam Date Initial Exam Provider Initial Ultrasound Date Last Menstrual Period Date Ultra Sound Weeks Gestation 10/02/2023 03/22/2023 02/15/2023 12/26/2022 7 Eighteen To Twenty Week Conrado Update Ultra Sound Date Fundal Height At Umbil Quickening Date Ultra Sound Latest Weeks Gestation Final Conrado Confirmed By Final Conrado Confirmed Date Final Conrado Date Ultra Sound Latest Days Gestation 0 [email or web address] 03/22/2023 10/02/19 24 0 Pre- Flowsheet Flowsheet Date 03/22/2023 Charles Score Blood Edema Fundus Height Fundus Units Glucose Ketones Leukocytes Nitrite Labor Signs Protein Cervic Dilation Cervic Effacement Cervic Station 12 Type Weight in lbs Pre/Post Dialysis Refused Weight 188.504914225853 BP Diastolic BP Location Tested BP Systolic BP Type 73 114 Fetus Heart Rate Present Fetus Movement Comments Presents to establish prenat wy care. uncomplicated thus far. Nausea improved. No cramping or bleeding. Hx of c section x2, plans RCS. PMH significant for childhood seizure disorder, not following with neurology or on meds. Will return for NT/NB US. NIPT ordered today. Flowsheet Date 03/24/2023 Charles Score Blood Edema Fundus Height Fundus Units Glucose Ketones Leukocytes Nitrite Labor Signs Protein Cervic Dilation Cervic Effacement Cervic Station Type Weight in lbs Pre/Post Dialysis Refused BP Diastolic BP Location Tested BP Systolic BP Type Fetus Heart Rate Present Fetus Movement Comments Flowsheet Date 04/19/2023 Charles Score Blood Edema Fundus Height Fundus Units Glucose Ketones Leukocytes Nitrite Labor Signs Protein Cervic Dilation Cervic Effacement Cervic Station 16 Type Weight in lbs Pre/Post Dialysis Refused Weight 195.241912321667 BP Diastolic BP Location Tested BP Systolic BP Type 71 122 Fetus Heart Rate Present A 145 Fetus Movement A Yes Comments Doing well, starting to feel movement. Having a girl! LR NIPT. +carrier for CF, getting tested. No cramping or bleeding. Anatomy US in 4 weeks. Flowsheet Date 05/17/2023 Charles Score Blood Edema Fundus Height Fundus Units Glucose Ketones Leukocytes Nitrite Labor Signs Protein Cervic Dilation Cervic Effacement Cervic Station Type Weight in lbs Pre/Post Dialysis Refused BP Diastolic BP Location Tested BP Systolic BP Type Fetus Heart Rate Present Fetus Movement Comments Flowsheet Date 05/17/2023 Charles Score Blood Edema Fundus Height Fundus Units Glucose Ketones Leukocytes Nitrite Labor Signs Protein Cervic Dilation Cervic Effacement Cervic Station Type Weight in lbs Pre/Post Dialysis Refused Weight 204.848961407214 BP Diastolic BP Location Tested BP Systolic BP Type 82 145 Fetus Heart Rate Present A 153 Fetus Movement A Yes Comments Having some vulvar itching a nd new discharge. Has tried Monistat without relief. Will send vaginitis panel. Also reports new dizziness episodes, encouraged drinking more water and protein filled snacks. Will check CBC and anemia panel. Good movement. No cramping or bleeding. Anatomy normal and complete, EFW 32%. RTC 4 weeks. Flowsheet Date 06/08/2023 Charles Score Blood Edema Fundus Height Fundus Units Glucose Ketones Leukocytes Nitrite Labor Signs Protein Cervic Dilation Cervic Effacement Cervic Station Type Weight in lbs Pre/Post Dialysis Refused BP Diastolic BP Location Tested BP Systolic BP Type Fetus Heart Rate Present Fetus Movement Comments Flowsheet Date 06/20/2023 Charles Score Blood Edema Fundus Height Fundus Units Glucose Ketones Leukocytes Nitrite Labor Signs Protein Cervic Dilation Cervic Effacement Cervic Station Type Weight in lbs Pre/Post Dialysis Refused Weight 214.856304526888 BP Diastolic BP Location Tested BP Systolic BP Type 69 112 Fetus Heart Rate Present A 140 Fetus Movement A Yes Comments Good movement. No cram ping or bleeding. Some right sided thigh pain x2 episodes. Likely related to position. Discussed conservative management. CBC and anemia labs wnl. Discussed GCT for next visit. RTC 3 weeks. Flowsheet Date 07/13/2023 Charles Score Blood Edema Fundus Height Fundus Units Glucose Ketones Leukocytes Nitrite Labor Signs Protein Cervic Dilation Cervic Effacement Cervic Station Type Weight in lbs Pre/Post Dialysis Refused Weight 221.964272875814 BP Diastolic BP Location Tested BP Systolic BP Type 70 109 Fetus Heart Rate Present A 140 Fetus Movement A Yes Comments [place] [facility] [place] Discussed travel precautions. Good movement. No cramping or bleeding. GCT and labs today. RTC 2 weeks. Flowsheet Date 08/01/2023 Charles Score Blood Edema Fundus Height Fundus Units Glucose Ketones Leukocytes Nitrite Labor Signs Protein Cervic Dilation Cervic Effacement Cervic Station neg trace trace Type Weight in lbs Pre/Post Dialysis Refused Weight 231.750115211017 BP Diastolic BP Location Tested BP Systolic BP Type 72 L arm 130 sitting Fetus Heart Rate Present Fetus Movement A Yes Comments Patient c/o slight swelling in feet, along with some pains and [place], routine care Flowsheet Date 08/22/2023 Charles Score Blood Edema Fundus Height Fundus Units Glucose Ketones Leukocytes Nitrite Labor Signs Protein Cervic Dilation Cervic Effacement Cervic Station trace 34 Type Weight in lbs Pre/Post Dialysis Refused Weight 234.419853473857 BP Diastolic BP Location Tested BP Systolic BP Type 70 113 Fetus Heart Rate Present A 143 Fetus Movement A Yes Comments Patient states that having s ome leg and thigh pain, contractions and swelling. given a prescription for cyclobenzaprine to take before bed. Has severe leg cramps that include her thigh and lower leg. Severely painful. Flowsheet Date 09/06/2023 Charles Score Blood Edema Fundus Height Fundus Units Glucose Ketones Leukocytes Nitrite Labor Signs Protein Cervic Dilation Cervic Effacement Cervic Station Type Weight in lbs Pre/Post Dialysis Refused Weight 239.859805164988 BP Diastolic BP Location Tested BP Systolic BP Type 68 116 Fetus Heart Rate Present A 120 Fetus Movement A Yes Comments Muscle spasms improved, not needing cyclobenzaprine anymore. Some BH contractions. No LOF or VB. Good movement. Would like RCS on 09/25 at 0730. RTC 1 week. Flowsheet Date 09/16/2023 Charles Score Blood Edema Fundus Height Fundus Units Glucose Ketones Leukocytes Nitrite Labor Signs Protein Cervic Dilation Cervic Effacement Cervic Station trace 39 Type Weight in lbs Pre/Post Dialysis Refused Weight 244.521730946030 BP Diastolic BP Location Tested BP Systolic BP Type 76 129 Fetus Heart Rate Present A 145 Present Fetus Movement A Yes Comments Patient is having some back and leg pain, contractions and swelling. c/s in 9 days! +FM, doing well, precautions and education reviewed Flowsheet Date 09/23/2023 Charles Score Blood Edema Fundus Height Fundus Units Glucose Ketones Leukocytes Nitrite Labor Signs Protein Cervic Dilation Cervic Effacement Cervic Station Type Weight in lbs Pre/Post Dialysis Refused Weight 246.235863509453 BP Diastolic BP Location Tested BP Systolic BP Type 74 130 Fetus Heart Rate Present Fetus Movement Comments Good movement, no ctx, LOF, VB. Back pain intermittently worsening. CS on Tuesday! Would like subq vijay instead of suture due to pain with first c section. RTC 1 week post op for incision check Menstrual History Last Menstrual Date Menses Monthly On Bcp Conception Prior Menses Frequency Hcg Plus Date Menarche Onset Age 1012/26/2022 Genetic Screening And Infection History Question Response Note Mental Retardation/Autism false Patient's Age Will Be 35 Years Or Older At Estim ated Date of Delivery false Thalassemia (Kittitian, Uzbek, Mediterranean, Or Background): MCV < 80 false Neural Tube Defect (Meningomyelocele, Spina Bifi da, Or Anencephaly) false Congenital Heart Defect false Down Syndrome false Douglas-Sachs (eg, Sikh, Cajun, Chinese-[place]) f alse Ned Disease false Sickle Cell Disease Or Trait () false Hemophilia Or Other Blood Disorders false Muscular Dystrophy false Cystic Fibrosis false [place]'s Ch[place] false Intellectual Disability/Autism false If Yes, Was Person Tested For Fragile X? false Other Inherited Genetic Or Chromosomal Disorder false Maternal Metabolic Disorder (eg, Type 1 Diabetes , PKU) false Patient Or Baby's Father Had A Child With Defects Not Listed Above false Recurrent Loss, Or A Stillbirth false Medications (including Suppl ements, Vitamins, Herbs, OTC Drugs), Illicit/Recreational Drugs, Alcohol false If Yes, Agent(s) And Strength/Dosage false Any Other Genetic History false Live With Someone With TB Or Exposed To TB false Patient Or Partner Has History Of Genital Herpes false Rash Or Viral Illness Since Last Menstrual Perio d false History Of STD, Gonorrhea, Chlamydia, HPV, Syphi lis false Other Infection History false History of HIV false History of Hepatitis false Prior GBS-infected child false Hemoglobinopathy Or Carrier false Other Structural Defect false Recent Travel History Outside of Country false Delivery Information Delivery Date Delivery Type Labor Anesthesia Weeks Gestation Incision Type Labor Labor Length Hrs Delivered By Post Complications Tubal Sterilization Discharge Date Comments 4 None [facility] 39.1 Low Transvers e false Yessenia Chakraborty MD Discharge Information Feeding Method Contraceptive Method Maternal HG B and HCT Levels Ob Episode Information Episode Created Date Number of Fetuses Patient Bloodtype Patient rh Status Prepregnancy Weight lbs Domestic Partner Domestic Partner Phone Father Name Metallurgical Engineering Technician Status 02/16/20 23 1 CLOSED Fetus Data First Name Last Name Admitted to NICU Weight (g) Sex Living Outcome Pediatric Complications Fetus ID Race Codes Race Delivery Type 2919.77 1704 M Full Term [id number] Repeat Conrado Calculation Initial Conrado Date Initial Exam Date Initial Exam Provider Initial Ultrasound Date Last Menstrual Period Date Ultra Sound Weeks Gestation 0 Eighteen To Twenty Week Conrado Update Ultra Sound Date Fundal Height At Umbil Quickening Date Ultra Sound Latest Weeks Gestation Final Conrado Confirmed By Final Conrado Confirmed Date Final Conrado Date Ultra Sound Latest Days Gestation 0 0 Menstrual History Last Menstrual Date Menses Monthly On Bcp Conception Prior Menses Frequency Hcg Plus Date Menarche Onset Age Delivery Information Delivery Date Delivery Type Labor Anesthesia Weeks Gestation Incision Type Labor Labor Length Hrs Delivered By Post Complications Tubal Sterilization Discharge Date Comments 2 39 Discharge Information Feeding Method Contraceptive Method Maternal HG B and HCT Levels
[2024-06-24 16:34] VITALS: BP 149/87; PULSE 77; RESP 18; TEMP 36.4; O2SAT 98
--- NOTE | 2024-06-24 19:31 | ED.BACK ---
HPI - Back Pain/Injury General Chief Complaint: Back Pain/Injury Stated Complaint: back pain Time Seen by Provider: 06/24/24 19:11 History of Present Illness HPI Narrative: This is a 23-year-old female, with no significant past medical history, presents to the emergency department complaining of left-sided low back pain for the past day. The patient states she was lifting a mattress and while lowering it she felt a sharp pain in the left low back. She denies loss of sensation in the groin, loss of bowel or bladder control or weakness/numbness in the legs. She is not taking anything for this today. She has no other complaints at this time. Related Data Home Medications ?Medication ?Instructions ?Recorded ?Confirmed ?Last Taken ?Type cyclobenzaprine 10 mg tablet 10 mg PO HS PRN stress 09/09/23 09/09/23 09/08/23 21:00 History prenat.vits,dorota,orq-fpwe-podwr 1 tablet 09/09/23 09/25/23 23:00 History Allergies Allergy/AdvReac Type Severity Reaction Status Date / Time No Known Allergies Allergy Verified 06/24/24 19:23 Review of Systems Review of Systems: Last menstrual period 2 months ago All systems reviewed & are unremarkable except as noted in HPI and below PMFSH Past Medical History Medical History No significant past medical history Surgical History Surgical History No significant past surgical history Family History Family History Grandparent Breast cancer Social History Social History Smoking status: Former smoker Tobacco type: cigarettes Second hand tobacco smoke exposure: No Substance use: never Do You Feel Safe in your Home?: Yes Lack of Transportation: No Lack of Food: Never True Current Housing: I Have Housing Concerned About Future Housing: No Difficulty Paying Gas/Electric Bills: No Difficulty Paying for Meds: No Currently Unemployed: No Education: Grade School Difficulty w/ Childcare or Family Care: No Spiritual care concerns: No Exam Narrative: GENERAL: Well-developed, well-nourished, and in no acute distress. HEAD: Normocephalic, atraumatic. EYES: PERRLA and EOMI. CHEST: Clear to auscultation. No respiratory distress. No wheezes rales or rhonchi HEART: Regular rate and rhythm. No murmur heard. Normal peripheral pulses. BACK: No midline spine tenderness to palpation, step-off or crepitus, left paraspinal tenderness at L3-S1 without palpable deformity or mass EXTREMITIES: Normal range of motion. No edema. SKIN: Warm, dry, no rash. NEURO: Alert and oriented x3. No focal deficit. Moving all 4 limbs spontaneously PSYCH: Normal mood and affect. Course Course Emergency Course: 19:30 - The patient's exam is consistent with lumbar muscle spasm strain. She is not sure if she could be . Will discharge with Tylenol and lidocaine patches. I advised the patient to hold muscle relaxers and naproxen until confirming her status and further recommendation from her OB. The patient's exam is not concerning for cauda equina or epidural abscess. Will discharge her with recommendation for primary care follow-up. I discussed the findings and recommendations with the patient. Discussed return and emergency precautions including signs/symptoms of cauda equina epidural abscess. The patient voiced understanding and agreement with the plan. All questions answered to her satisfaction. Vital Signs Vital signs: Vital Signs Temperature 97.6 F 06/24/24 16:34 Pulse Rate 77 06/24/24 16:34 Respiratory Rate 18 06/24/24 16:34 Blood Pressure 149/87 H 06/24/24 16:34 Pulse Oximetry 98 06/24/24 16:34 Temperature 97.6 F 06/24/24 16:34 Pulse Rate 77 06/24/24 16:34 Respiratory Rate 18 06/24/24 16:34 Blood Pressure 149/87 H 06/24/24 16:34 Pulse Oximetry 98 06/24/24 16:34 MDM - Back Pain/Injury MDM Narrative Medical decision making narrative: Plan: Pain control, primary care follow-up Differential Diagnosis Differential diagnosis: Likely lumbar radiculopathy, sciatica, strain of lumbar region and other Discharge Plan Discharge Clinical Impression: Strain of lumbar region Qualifiers: Encounter type: initial encounter Qualified Code(s): S39.012A - Strain of muscle, fascia and tendon of lower back, initial encounter Low back pain Qualifiers: Chronicity: acute Back pain laterality: left Sciatica presence: without sciatica Qualified Code(s): M54.50 - Low back pain, unspecified Patient Disposition: Home Condition: Stable Instructions: Antibiotic Form, Acute Low Back Pain (ED), Lower Back Exercises (ED) Additional Instructions: You were seen in the emergency department. Your exam is consistent with a lumbar strain. I recommend rest icing, gentle low back exercises Tylenol, lidocaine patches and follow-up with a primary care doctor. Hold the naproxen and muscle relaxers until confirming your status. If you develop loss of sensation in the groin, loss of bowel/bladder control, fevers with severe back pain, or if you have other emergent concerns for life, limb, or eyesight, return to the emergency department. Patient Language: Erit[place]an Prescriptions: New lidocaine 5 % adhesive patch,medicated 1 patch topical DAILY Qty: 30 0RF Rx Instructions: leave on most painful area for up to 12 hrs naproxen 500 mg tablet 500 mg PO BID PRN (Reason: pain) Qty: 20 0RF cyclobenzaprine 10 mg tablet 10 mg PO HS PRN (Reason: muscle spasm) Qty: 10 0RF No Action cyclobenzaprine 10 mg Tablet 10 mg PO HS PRN (Reason: stress) prenat.vits,dorota,iis-sfum-dbjsj Tablet 1 tablet Follow-up/Referrals: Dariusz Styles MD [Physician] - 2 Weeks Stand Alone Forms: Work/School Release IP Time of Disposition: 19:33
[2024-06-24] MEDS: ACETAMINOPHEN 500 MG TABLET 1000 MG PO (19:44)
--- NOTE | 2024-06-24 19:47 | PC.NURSE ---
pt unsure to take naproxen at this time due to chance of . pt states her last period was about 2 months ago but has taken x2 tests that were negative. pt states she has a follow up appt at the [facility] this week. edp dr. borrero aware and verbalized d/c of naproxen.
== END 2024-06-24 20:16 | disposition home or self-care (01) ==
PROVIDERS: Emergency Provider Preventive Medicine Aerospace Medicine
DX: S39.012A Strain of muscle, fascia and tendon of lower back, initial encounter (principal); Z87.891 Personal history of nicotine dependence; X50.0XXA Overexertion from strenuous movement or load, initial encounter
CPT/HCPCS: 99283; A9270

== ENCOUNTER 2025-02-02 19:23 | Observation (INO) | payer OTHER, SELFPAY ==
[2025-02-02] VITALS (15 sets, daily range): BP systolic 136–139; BP diastolic 65–83; PULSE 73–107; O2SAT 98–99; BMI 41.2
[2025-02-02 20:19] LABS: Add Urine Microscopic? YES; Appearance Urine Cloudy (Clear); Glucose Urine UA Negative (Negative); Leukocyte Esterase Ur Negative LEU/UL (Negative); Need Manual Microscopic Reviewed; Nitrate Urine Negative (Negative); Non Pathogenic Casts 0-2; Specific Grav Ur 1.022 (1.001-1.035)
--- NOTE | 2025-02-02 20:42 | OBADM ---
This patient, Sriram Ghosh, admitted to the OB room OB Post 117 for observation. Patient/family oriented to hospital policies and general routines including ID bracelet, bed and alarms, visiting hours, pain management, procedures, bathroom and other care routines, personal items, smoking policy, room service/diet, and visiting hours. Patient/Family are encouraged to report perceived risks to care and to ask questions if they do not understand what they are told or what they should do.
--- NOTE | 2025-02-04 12:33 | PM.OBTRLD ---
OB - Triage/Final Diagnosis Visit Information Date of evaluation: 02/02/25 Reason for evaluation: threatened labor Comments/Additional reasons for admission: I have assessed the risk for this patient, Sriram Ghosh, and determined that she would benefit from observation care. Evaluation Laboratory results: Laboratory Tests 02/02/25 20:01 Urine Color Yellow Urine Appearance Cloudy H Urine pH 5.5 Ur Specific [place] 1.022 Urine Protein Negative Urine Glucose (UA) Negative Urine Ketones Negative Ur Blood (Man) Negative Urine Nitrate Negative Urine Bilirubin Negative Urine Urobilinogen 0.2 Add Ur Microanalysis Reviewed Leukocyte Esterase Rfl Negative Urine RBC 3-5 H Urine WBC 11-20 H Ur Squamous Epith Cells Few Urine Bacteria 4+ H Urine Casts 0-2
== END 2025-02-02 21:04 | disposition home or self-care (01) ==
PROVIDERS: Admitting Provider Obstetrics & Gynecology; Visit Provider Obstetrics & Gynecology
DX: O47.03 False labor before 37 completed weeks of gestation, third trimester (principal); Z3A.35 35 weeks gestation of pregnancy; R82.90 Unspecified abnormal findings in urine
CPT/HCPCS: 81001; 87086; G0379

== ENCOUNTER 2025-02-23 21:21 | Outpatient (CLI) | payer OTHER, SELFPAY ==
--- OUTSIDE RECORDS SUMMARY | 2025-02-23 21:29 | XMS_ITS | Continuity of Care Document ---
Author Organization [facility] Address [address] [place] [address] [place] [address] Assessment No assessment recorded. Plan of Treatment Reminders Order Date Submit Date Provider Last Modified By Organization Details Last Modified Time Details Appointments OB ROUTINE 2025 10:30A Rebecca REINA MD Not available Not available Not available SURG CSection 2025 07:30A Rebecca CHAKRABORTY MD Not available Not available Not available SURG POST OP 2025 10:00A Rebecca CHAKRABORTY MD Not available Not available Not available Lab None recorded. Referral None recorded. Procedures None recorded. Surgeries section (SURG) 2024 026 [email or web address] [facility], [facility] [address], [address], 01/03/2025 10:43:40 Imaging None recorded. Medication Orders None recorded. Patient TargetsNo targets recorded. Patient InstructionsNo instructions recorded. Reason for Referral None Reported. Results Created Date Observation Date Name Description Value Unit Range Abnormal Flag Note LastModifiedBy Organization Detail LastModifiedTime 08/30/1908/29/2024 [UNIT Y] ANEUP LOIDY NIPT fraction 3.8% normal Not Available [address], [place], [address], 08/29/2024 17:09:49 08/30/19 25 08/29/2024 [UNIT Y] ANEUP LOIDY NIPT 22Q11.2 microdeletio n LOW RISK <1 in 10,000 normal Not Available [address], [place], [address], 08/29/2024 17:09:49 08/30/19 25 08/29/2024 [UNIT Y] ANEUP LOIDY NIPT sex chromosome aneuploidy NOT DETECT ED normal Not Available [facility] [address], [place], [address], 08/29/2024 17:09:49 08/30/19 25 08/29/2024 [UNIT Y] ANEUP LOIDY NIPT monosomy X LOW RISK <1 in 10,000 normal Not Available [facility] [address], [place], [address], 08/29/2024 17:09:49 08/30/19 25 08/29/2024 [UNIT Y] ANEUP LOIDY NIPT trisomy 13 LOW RISK <1 in 10,000 normal Not Available [facility] [address], [place], [address], 08/29/2024 17:09:49 08/30/19 25 08/29/2024 [UNIT Y] ANEUP LOIDY NIPT trisomy 18 LOW RISK <1 in 10,000 normal Not Available [facility] [address], [place], [address], 08/29/2024 17:09:49 08/30/19 25 08/29/2024 [UNIT Y] ANEUP LOIDY NIPT trisomy 21 LOW RISK <1 in 10,000 normal Not Available [facility] [address], [place], [address], 08/29/2024 17:09:49 08/30/19 25 08/29/2024 [UNIT Y] ANEUP LOIDY NIPT sex FEMALE normal Not Available [facility] [address], [place], [address], 08/29/2024 17:09:49 08/30/19 25 08/29/2024 [UNIT Y] ANEUP LOIDY NIPT gestation SINGLE TON normal Not Available [facility] [address], [place], [address], 08/29/2024 17:09:49 08/30/19 25 08/29/2024 [UNIT Y] ANEUP LOIDY NIPT for detailed report, see pdf See PDF normal Not Available [facility] [address], [place], [address], 08/29/2024 17:09:49 11/22/19 25 11/21/2024 CULTU RE: URINE result report SEE RESULT S BELOW Test: Cultu re: Urine Speci men Sourc e: Urine - Clean Catch Speci men Type: Urine Speci men Date: 2024 1309 Resul t Date: 2024 0251 Resul t Statu s: Final resul t Abnor mal: No Resul ting Lab: [facility] [address] [facility] [address] Tel: CULTU RE ----- ----- ----- --- No growt h in 1 day (dete ction level of 10,00 0 colon ies / ml.) Not Available [facility] (Lab) [address] [facility], [place], [address], 11/23/2024 03:57:03 11/22/1911/21/2024 drug romi martinez, urine Cannabinoids : positi ve Not Available [place] [address], [place], [address], 11/21/2024 12:00:41 01/03/20 25 01/02/2025 GTT - GESTA CHRIS Pablito Martinez, ACOG OB glucose, 1 hour screen 99 mg/dL 70-[address] [facility] (Lab) [address] [facility], [place], [address], 01/03/2025 13:30:02 01/03/20 25 01/02/2025 HIV 1/2 ANTIG EN/AN TIBOD Y, REFLE X CONFI RMATI ON HIV antigen/anti body Nonrea ctive nonrea ctive HIV-1 antig en and HIV-1 /HIV- 2 antib odies were not detec piedad. No labor atory evide nce of HIV infec tion. Not Available [facility] (Lab) [address] [facility], [place], [address], 01/03/2025 13:30:03 01/03/20 25 01/02/2025 HEMAT OCRIT (HCT) HCT 33.9 % (based on docume nted legal sex) 34.0-4 5.0 low Not Available [facility] (Lab) [address] [facility], [place], [address], 01/03/2025 13:30:04 01/03/20 25 01/02/2025 HEMOG LOBIN (HGB) HGB 10.8 g/dL (based on docume nted legal sex) 11.6-1 5.4 low Not Available [facility] (Lab) [address] [facility], [place], [address], 01/03/2025 13:30:05 01/03/20 25 01/02/2025 RPR SCREE N, REFLE X TITER /CONF IRMAT ION RPR qualitative Nonrea ctive nonrea ctive Not Available [facility] (Lab) [address] [facility], [place], [address], 01/03/2025 13:30:06 10/23/19 25 10/22/2024 US, obste tric, 2nd or 3rd trime ster No observ ation record ed. [email or web address] [place] [address], [place], [address], 10/22/2024 18:24:10 10/23/19 25 10/22/2024 US, obste tric, 2nd or 3rd trime ster No observ ation record ed. [email or web address] [facility] [address], [place], [address], 10/22/2024 14:16:26 11/22/19 25 11/21/2024 US, obste tric, follo w-up No observ ation record ed. [email or web address] [place] [address], [place], [address], 11/21/2024 18:34:46 11/22/19 25 11/21/2024 US, obste tric, follo w-up No observ ation record ed. [email or web address] [facility] [address], [place], [address], 11/21/2024 18:15:58 01/03/20 25 01/02/2025 US, obste tric, follo w-up No observ ation record ed. [email or web address] [place] [address], [place], [address], 01/02/2025 18:27:04 01/03/20 25 01/02/2025 US, obste tric, follo w-up No observ ation record ed. [facility] [address], [place], [address], 01/28/2025 11:17:52 02/03/20 25 02/02/2025 imagi ng/di agnos tic resul t No observ ation record ed. [facility] [address], [place], [address], 02/18/2025 04:05:20 Result Notes None recorded. Problems Name Problem SNOMED Code Status Onset Date Resolution Date Notes Provider Name and Address Organization Details Recorded Time Cystic fibrosis 649898636 Completed Carrier Sandy Sales CNM [address], [place], [address], [place] [facility] 4 14:15:16 Seizure disorder 437297379 Completed childhoo d, not currentl y on meds Sandy Sales CNM [address], [place], [address], [facility] 4 14:15:16 Deliveri es by [id number] Completed repeat Sandy Sales CNM [address], [place], [address], [facility] 4 14:15:16 Pregnanc y 68606574 Completed 202309/29/2023 CHAR Watkins [facility], [facility] 5 11:35:59 Seizure disorder 748603524 Active 2024 Jennifer Song [facility], [facility] 5 12:23:46 Pregnanc y 77546851 Active 2024 CAHR Watkins [facility], [facility] 5 11:35:59 Past pregnanc y history of section 322603833 Active 2024 x3, repeat YESSENIA CHAKRABORTY MD [address], [place], [address], [facility] 5 16:56:42 Problem Notes None recorded. Procedures Surgical History Date Name Laterality Status Provider Name and Address Organization Details Recorded Time 5 Date of Last Pap Smear completed Jennifer Song [facility] 07/18/2024 12:21:36 4 SECTION (SURG) completed Michelle Georges [facility] 09/26/2023 14:01:00 4 tooth extraction completed Alexandria Mejía [facility] 04/19/2023 14:15:59 2 section completed Alexandria Mejía [facility] 02/15/2023 15:59:55 8 section completed Alexandria Mejía [facility] 02/15/2023 15:59:40 Imaging Results None recorded. Procedure Notes None recorded. Medical Equipment None Reported. Allergies No known drug allergies Medications Name Sig Start Date Stop Date Status Note LastModified by Organization Details LastModified Time cyclobenzap rine 10 mg tablet TAKE 1 TABLET BY MOUTH THREE TIMES DAILY 06/27 completed Not Available Not Available Not Available amoxicillin 500 mg capsule TAKE 1 CAPSULE BY MOUTH TWICE DAILY FOR 10 DAYS 06/27 completed Not Available Not Available Not Available fluconazole 150 mg tablet TAKE 1 TABLET BY MOUTH EVERY 72 HOURS active Not Available Not Available No t Available benzonatate 200 mg capsule TAKE 1 CAPSULE BY MOUTH THREE TIMES DAILY NEEDED FOR COUGH 06/27 completed Not Available Not Available Not Available penicillin V potassium 500 mg tablet TAKE 1 TABLET BY MOUTH EVERY 8 HOURS UNTIL ALL TAKEN 04/19 completed Not Available Not Available Not Available metronidazo le 500 mg tablet TAKE 1 TABLET BY MOUTH TWICE DAILY FOR 7 DAYS DIRECTED 06/19 completed Not Available Not Available Not Available Reglan 10 mg tablet Take 1 tablet 4 times a day by oral route. 02/11 completed Not Available Not Available Not Available acetaminoph en 500 mg tablet TAKE 1 TABLET BY MOUTH EVERY 6 HOURS NEEDED FOR PAIN 04/19 completed Not Available Not Available Not Available amoxicillin 500 mg tablet TAKE 1 TABLET BY MOUTH TWICE DAILY FOR 10 DAYS active Not Available Not Available No t Available oxycodone-a cetaminophe n 5 mg-325 mg [...] 1 tablet every day by oral route. 06/27 completed Not Available Not Available Not Available ibuprofen 600 mg tablet TAKE 1 TABLET BY MOUTH EVERY 6 HOURS NEEDED FOR PAIN 06/27 completed Not Available Not Available Not Available ondansetron 4 mg disintegrat ing tablet Place 2 tablets twice a day by transling ual route. 2024 active Not Available Not Available Not Avai lable sertraline 50 mg tablet TAKE 1/2 TABLET BY MOUTH ONCE DAILY X7 DAYS THEN INCREASE TO 1 TABLET BY MOUTH ONCE DAILY active Not Available Not Available No t Available amoxicillin 875 mg-potassiu m clavulanate 125 mg tablet TAKE 1 TABLET BY MOUTH TWICE DAILY 06/27 completed Not Available Not Available Not Available nitrofurant oin monohydrate /macrocryst als 100 mg capsule TAKE 1 CAPSULE BY MOUTH EVERY 12 HOURS 04/19 completed Not Available Not Available Not Available active Not Available Not Avai lable Not Available Aurovela Fe 1-20 (28) 1 mg-20 mcg (21)/75 mg (7) tablet Take 1 tablet every day by oral route. 06/27 completed Not Available Not Available Not Available Vitals Date Recorded Body height Body mass index (BMI) Body weight Systolic And Diastolic Provider Name and Address Organization Details Last Updated DateTime 01/02/2025 162.56 cm 41.9 kg/m2 588017.54 g 117/77 mm[Hg] Meli Brooks [facility] 01/02/2025 16:50:19 Social History Question Answer Notes LastModified by Organizat ion Details LastModified Time Tobacco Smoking Status Former Smoker Jennifer infante, [facility] 07/18/2024 12:23:04 If You Are , What Was Your Level Of Alcohol Consumption Prior To ? Occasional [email or web address] Information not available 07/18/2024 Are You Blind Or Do You Have Difficulty Seeing? Yes Information not available 07/13/2023 What Is Your Level Of Caffeine Consumption? Moderate Information not available 05/17/2023 How Much Tobacco Do You Chew? None Information not available 05/17/2023 In The 14 Days Before Symptom Onset, Have You Had Close Contact With A Laboratory-confir med COVID-19 While That Case Was Ill? No Information not available 05/17/2023 In The 14 [...] Of Diet Are You Following? REGULAR Information not available 05/17/2023 What Is The Highest Grade Or Level Of School You Have Completed Or The Highest Degree You Have Received? [id number] Information not available 05/17/2023 Are There Any [...] IV Drugs? No Information not available 05/17/2023 Do You Have Difficulty Walking Or Climbing Stairs? No [email or web address] Information not available 08/01/2023 Sex: Unknown Functional Status Question Answer Note LastModified by Organizat ion Details LastModified Time Do you use any illicit or recreational drugs? No Information not available 05/17/2023 Do you or have you ever used any other forms of tobacco or nicotine? Yes [email or web address] Information not available 06/27/2024 What is your level of alcohol consumption? None Information not available 05/17/2023 Are you able to walk independently without assistance or assistive devices? [email or web address] Information not available 05/17/2023 Are you able to care for yourself independently? Yes [email or web address] Information not available 08/01/2023 Do you have difficulty dressing, bathing, grooming, or toileting? No [email or web address] Information not available 08/01/2023 Do you or have you ever used e-cigarettes or vape? Current user of electronic cigarettes [email or web address] Information not available 06/27/2024 What is your exercise level? None Information not available 05/17/2023 Mental Status Question Answer Note LastModified by Organization D etails LastModified Time Do you feel stressed (tense, restless, nervous, or anxious, or unable to sleep at night)? [id number] Information not available 05/17/2023 Family History Relationship Description Onset Age of this Age Resolved Age Notes LastModified by Organization Details LastModified Time Mother Asthma [email or web address] Not available 16:08:47 Brother Asthma [email or web address] Not available 1 04/18/2022 16:08:47 Maternal Grandmother Malignant neoplasm of breast [email or web address] Not available 2022 16:09:08 Maternal Grandmother Diabetes mellitus [email or web address] Not available 2022 16:09:37 Maternal Grandmother Essential hypertension [email or web address] Not available 0 11/21/2024 10:53:46 Maternal Grandmother Disorder of thyroid gland [email or web address] Not available 2022 16:11:49 Maternal Grandfather Diabetes mellitus [email or web address] Not available 2022 16:09:37 Maternal Grandfather Essential hypertension [email or web address] Not available 0 11/21/2024 10:53:46 Medical History Condition Response Allergies (Food, seasonal, environmental ) N Other N Breast Cancer N Drug/Latex Allergies/Reactions N Blood Transfusion N Lung Disease N Dermatologic Disorders N Defects or Inherited Disease N Breast Problem N Gestational Diabetes N Hematologic disorders N Anesthesia Complications N History of STI N Deep Vein Thrombosis N Polycystic ovary syndrome N Anxiety Disorder N Autoimmune disease N Arthritis N Polyps N Infertility N History of abnormal pap N Acid Reflux (GERD) N Cancer N Varicosities N Stroke N Neurologic/Epilepsy Y Endometriosis N High Cholesterol N Fibromyalgia N Headaches N Kidney Disease N Heart Problems N Kidney or Bladder Problems N Thyroid Problems N GI Problems N Eating Disorder [...] Date of Last Mammogram Date of LMP 04/27/2024 On BCP's at Conception? N N Was last menstrual period normal N STIs/STDs Y HPV Vaccine N Duration of Flow (days) 7 Current Control Method Age at First Child 17 Are cycles usually normal N Date of Last Colonoscopy Sexually Active? Y Menses Monthly N Date of DEXA bone scan Age of first menstrual cycle 13 Date of Last Pap Smear 07/18/2024 Sexual Problems? N Desired Control Method None LMP Definite N Obstetrics History GPAL:G 4 P 3 0 0 3 Type Value Full Term 3 Living 3 Total 4 Past Encounters Encounter ID Performer Location Encounter Start Date Encounter Closed Date Diagnosis/Indication Diagnosis SNOMED-CT Code Diagnosis ICD10 Code Diagnosis IMO Codes Diagnosis Note [id number] YESSENIA CHAKRABORTY MD [place] [address] [address] 12/19/2024 11:57:38 12/19/2024 12:53:20 Past history of section 823522710 Z98.891 892199 - x3- plan to repeat screening 2437 85873 Z36.89 Gestation period, 29 weeks 51191035 Z3A.29 0573749 - continue PNV [id number] YESSENIA CHAKRABORTY MD [place] [address],[place] [address] 01/02/2025 15:56:45 01/02/2025 16:40:41 Uterine size for dates discrepancy 942139820 O26.843 Z3A.31 7452968 [id number] YESSENIA CHAKRABORTY MD [place] [address],[place] [address] 01/02/2025 16:26:38 01/02/2025 17:24:21 Past history of section 057568932 Z98.891 616256 - x3- plan to repeat Gestation period, 31 weeks 42411436 Z3A.31 6283838 - continue PNV Health Concerns Section Related Observation LastModified by Organization Detai ls LastModified Time None Recorded Concern Status LastModified by Organization Details LastModified Time None Recorded Payers Encounter Date Sequence Insurance Name Policy Number Policy Beck Covered Member ID Beck Member ID Guarantor Name 01/02/2025 1 [employer] (MEDICAID HMO) [id number] Sriram Ghosh [id number] Sriram Ghosh Notes Date Note Type Note Provider Name and Address Organization Details Recorded Time 01/02/2025 text/html Generic HPI TemplateReported by Patient YESSENIA CHAKRABORTY MD [address], [place], [address], [place] [facility] 01/02/2025 17:20:45 OBGyn Episode Ob Episode Information Episode Created Date Number of Fetuses Patient Bloodtype Patient rh Status Prepregnancy Weight lbs Domestic Partner Domestic Partner Phone Father Name Life Science Technical Officer Status 08/28/19 25 1 O Positive 229.6 Oscar OPEN Fetus Data First Name Last Name Admitted to NICU Weight (g) Sex Living Outcome Pediatric Complications Fetus ID Race Codes Race Delivery Type [id number] Problems Problem Notes Problem Name Start Date End Date Resolution Snomed Code Not e Past history of section 08/30/2024 280153506 x3, repeat Conrado Calculation Initial Conrado Date Initial Exam Date Initial Exam Provider Initial Ultrasound Date Last Menstrual Period Date Ultra Sound Weeks Gestation 03/06/2025 08/27/2024 [email or web address] 08/23/2024 12 Eighteen To Twenty Week Conrado Update Ultra Sound Date Fundal Height At Umbil Quickening Date Ultra Sound Latest Weeks Gestation Final Conrado Confirmed By Final Conrado Confirmed Date Final Conrado Date Ultra Sound Latest Days Gestation 0 0 Pre-jeny Flowsheet Flowsheet Date 08/29/2024 Charles Score Blood Edema Fundus Height Fundus Units Glucose Ketones Leukocytes Nitrite Labor Signs Protein Cervic Dilation Cervic Effacement Cervic Station Type Weight in lbs Pre/Post Dialysis Refused 229.009970006560 BP Diastolic BP Location Tested BP Systolic BP Type 85 L arm 123 sitting Fetus Heart Rate Present A 153 Fetus Movement Comments Patient presents to [facility] care. Hx of c section x3, plan for repeat. otherwise uncomplicated. Some nausea, picking up rx today. Having some dizziness, discussed gatorade and electrolytes. No bleeding or cramping. NT/NB wnl last week, desires NIPT, pending. New OB labs wnl. RTC 4 weeks for routine care. Flowsheet Date 09/28/2024 Charles Score Blood Edema Fundus Height Fundus Units Glucose Ketones Leukocytes Nitrite Labor Signs Protein Cervic Dilation Cervic Effacement Cervic Station Type Weight in lbs Pre/Post Dialysis Refused Weight 229.741855624105 BP Diastolic BP Location Tested BP Systolic BP Type 82 L arm 121 sitting Fetus Heart Rate Present A 140 Fetus Movement A No Comments Doing well. Dizziness improv ed. No cramping or bleeding. LR female NIPT! Other OB labs wnl. Discussed anatomy US for next visit. RTC 3-4 weeks. Flowsheet Date 10/22/2024 Charels Score Blood Edema Fundus Height Fundus Units Glucose Ketones Leukocytes Nitrite Labor Signs Protein Cervic Dilation Cervic Effacement Cervic Station Type Weight in lbs Pre/Post Dialysis Refused BP Diastolic BP Location Tested BP Systolic BP Type Fetus Heart Rate Present Fetus Movement Comments Flowsheet Date 10/22/2024 Charles Score Blood Edema Fundus Height Fundus Units Glucose Ketones Leukocytes Nitrite Labor Signs Protein Cervic Dilation Cervic Effacement Cervic Station Type Weight in lbs Pre/Post Dialysis Refused Weight 232.8668552903 BP Diastolic BP Location Tested BP Systolic BP Type 81 L arm 137 sitting Fetus Heart Rate Present A Present Fetus Movement A No Comments Doing well, no cramping or b leeding. Anatomy incomplete, needs profile, left hand, and DA. EFW 19%. Repeat in 4 weeks. RTC 4 weeks. Flowsheet Date 11/21/2024 Charles Score Blood Edema Fundus Height Fundus Units Glucose Ketones Leukocytes Nitrite Labor Signs Protein Cervic Dilation Cervic Effacement Cervic Station Type Weight in lbs Pre/Post Dialysis Refused BP Diastolic BP Location Tested BP Systolic BP Type Fetus Heart Rate Present Fetus Movement Comments Flowsheet Date 11/21/2024 Charles Score Blood Edema Fundus Height Fundus Units Glucose Ketones Leukocytes Nitrite Labor Signs Protein Cervic Dilation Cervic Effacement Cervic Station Type Weight in lbs Pre/Post Dialysis Refused 237.029601150471 BP Diastolic BP Location Tested BP Systolic BP Type 76 L arm 142 sitting Fetus Heart Rate Present A Present Fetus Movement A Yes Comments Good movement. No cram ping or bleeding. Anatomy complete and normal. EFW 21%, HC 3%. Repeat at 32 weeks for growth. Discussed GCT and labs for next visit. RTC 4 weeks. Flowsheet Date 12/19/2024 Charles Score Blood Edema Fundus Height Fundus Units Glucose Ketones Leukocytes Nitrite Labor Signs Protein Cervic Dilation Cervic Effacement Cervic Station Type Weight in lbs Pre/Post Dialysis Refused 242.652098269061 BP Diastolic BP Location Tested BP Systolic BP Type 70 L arm 120 sitting Fetus Heart Rate Present A 145 Fetus Movement A Yes Comments Doing well, having some leg cramping. Has order for PT. No pelvic cramping or bleeding. Baby active. GCT and labs ordered, will come back on Tuesday. Discussed tdap. RTC 2 weeks. Flowsheet Date 01/02/2025 Charles Score Blood Edema Fundus Height Fundus Units Glucose Ketones Leukocytes Nitrite Labor Signs Protein Cervic Dilation Cervic Effacement Cervic Station Type Weight in lbs Pre/Post Dialysis Refused BP Diastolic BP Location Tested BP Systolic BP Type Fetus Heart Rate Present Fetus Movement Comments Flowsheet Date 01/02/2025 Cahrles Score Blood Edema Fundus Height Fundus Units Glucose Ketones Leukocytes Nitrite Labor Signs Protein Cervic Dilation Cervic Effacement Cervic Station Type Weight in lbs Pre/Post Dialysis Refused Weight 244.660274057660 BP Diastolic BP Location Tested BP Systolic BP Type 77 L arm 117 sitting Fetus Heart Rate Present A Present Fetus Movement A Yes Comments Baby active. No issues aside from leg cramping. GCT and labs today. Plan for 03/04 for RCS. EFW 20%, vertex. RTC 2 weeks. Flowsheet Date 01/18/2025 Charles Score Blood Edema Fundus Height Fundus Units Glucose Ketones Leukocytes Nitrite Labor Signs Protein Cervic Dilation Cervic Effacement Cervic Station Type Weight in lbs Pre/Post Dialysis Refused 246.993239051139 BP Diastolic BP Location Tested BP Systolic BP Type 64 L arm 123 sitting Fetus Heart Rate Present A 145 Fetus Movement A Yes Comments Doing well, good movem ent. Had some BH contractions yesterday, better today. Discussed preadmission, TDAP and RSV. RTC 2 weeks. Flowsheet Date 02/01/2025 Charles Score Blood Edema Fundus Height Fundus Units Glucose Ketones Leukocytes Nitrite Labor Signs Protein Cervic Dilation Cervic Effacement Cervic Station Type Weight in lbs Pre/Post Dialysis Refused Weight 205.785020812889 BP Diastolic BP Location Tested BP Systolic BP Type 65 L arm 110 sitting Fetus Heart Rate Present Fetus Movement A Yes Comments Doing well, good movem ent. No ctx, LOF, or VB. Needs to schedule preadmission. GBS collected today. RTC 1 week. Flowsheet Date 02/04/2025 Charles Score Blood Edema Fundus Height Fundus Units Glucose Ketones Leukocytes Nitrite Labor Signs Protein Cervic Dilation Cervic Effacement Cervic Station Type Weight in lbs Pre/Post Dialysis Refused Weight 254.871470258534 BP Diastolic BP Location Tested BP Systolic BP Type 70 L arm 139 sitting Fetus Heart Rate Present A 140 Fetus Movement A Yes Comments Was seen in the ER Tuesday for pelvic pain. Was told she had [place] Joyce contractions. Stopped when she went to the hospital. No further episodes of contractions. No bleeding or LOF. Will start testing for obesity next week. RTC 1 week. Flowsheet Date 02/11/2025 Charles Score Blood Edema Fundus Height Fundus Units Glucose Ketones Leukocytes Nitrite Labor Signs Protein Cervic Dilation Cervic Effacement Cervic Station Type Weight in lbs Pre/Post Dialysis Refused 254.010107791376 BP Diastolic BP Location Tested BP Systolic BP Type 71 L arm 119 sitting Fetus Heart Rate Present A 140 Present Fetus Movement A Yes Comments no complaints, no problems, routine care, no contractions, no vaginal bleeding, no loss of fluid, no cramping Flowsheet Date 02/18/2025 Charles Score Blood Edema Fundus Height Fundus Units Glucose Ketones Leukocytes Nitrite Labor Signs Protein Cervic Dilation Cervic Effacement Cervic Station Type Weight in lbs Pre/Post Dialysis Refused Weight 256.796639991933 BP Diastolic BP Location Tested BP Systolic BP Type 74 L arm 119 sitting Fetus Heart Rate Present A 150 Fetus Movement A Yes Comments Good movement. No cram ping or bleeding. Yeast infection improving after diflucan. No other issues. RTC 1 week. Menstrual History Last Menstrual Date Menses Monthly On Bcp Conception Prior Menses Frequency Hcg Plus Date Menarche Onset Age true 28 Genetic Screening And Infection History Question Response Note Patient's Age Will Be 35 Years Or Older At Estim ated Date of Delivery false Thalassemia (Estonian, Finnish, Mediterranean, Or Background): MCV < 80 false Neural Tube Defect (Meningomyelocele, Spina Bifi da, Or Anencephaly) false Congenital Heart Defect false Down Syndrome false Douglas-Sachs (eg, Jehovah'S Witness, Cajun, Yakut-[place]) f alse Ned Disease false Sickle Cell Disease Or Trait () false Hemophilia Or Other Blood Disorders false Muscular Dystrophy false Cystic Fibrosis false Talent's Chorea false Intellectual Disability/Autism false Other Inherited Genetic Or Chromosomal Disorder false Maternal Metabolic Disorder (eg, Type 1 Diabetes , PKU) false Patient Or Baby's Father Had A Child With Defects Not Listed Above false Recurrent Loss, Or A Stillbirth false Medications (including Suppl ements, Vitamins, Herbs, OTC Drugs), Illicit/Recreational Drugs, Alcohol false Any Other Genetic History false Live With Someone With TB Or Exposed To TB false Patient Or Partner Has History Of Genital Herpes false Rash Or Viral Illness Since Last Menstrual Perio d false Delivery Information Delivery Date Delivery Type Labor Anesthesia Weeks Gestation Incision Type Labor Labor Length Hrs Delivered By Post Complications Tubal Sterilization Discharge Date Comments Discharge Information Feeding Method Contraceptive Method Maternal HG B and HCT Levels
--- OUTSIDE RECORDS SUMMARY | 2025-02-23 21:29 | XMS_ITS | Continuity of Care Document ---
Author Organization [facility] Address [address] [place] [address] [place] [address] Assessment No assessment recorded. Plan of Treatment Reminders Order Date Submit Date Provider Last Modified By Organization Details Last Modified Time Details Appointments OB ROUTINE 2025 10:30A Rebecca LVIINGSTON MD Not available Not available Not available SURG CSection 2025 07:30A Rebecca CHAKRABORTY MD Not available Not available Not available SURG POST OP 2025 10:00A Rebecca CHAKRABORTY MD Not available Not available Not available Lab None recorded. Referral None recorded. Procedures None recorded. Surgeries None recorded. Imaging None recorded. Medication Orders None recorded. Patient TargetsNo targets recorded. Patient InstructionsNo instructions recorded. Reason for Referral None Reported. Results Created Date Observation Date Name Description Value Unit Range Abnormal Flag Note LastModifiedBy Organization Detail LastModifiedTime 08/30/1908/29/2024 [UNIT Y] ANEUP LOIDY NIPT fraction 3.8% normal Not Available Mary Jo Barajas[address], [place], [address], 08/29/2024 17:09:49 08/30/19 25 08/29/2024 [UNIT Y] ANEUP LOIDY NIPT 22Q11.2 microdeletio n LOW RISK <1 in 10,000 normal Not Available [address], [place], [address], 08/29/2024 17:09:49 08/30/19 25 08/29/2024 [UNIT Y] ANEUP LOIDY NIPT sex chromosome aneuploidy NOT DETECT ED normal Not Available [facility] [address], [place], [address], 08/29/2024 17:09:49 08/30/19 25 08/29/2024 [UNIT Y] ANEUP LOIDY NIPT monosomy X LOW RISK <1 in 10,000 normal Not Available [facility] [address], [place], [address], 08/29/2024 17:09:49 08/30/19 25 08/29/2024 [UNIT Y] ANEUP LOIDY NIPT trisomy 13 LOW RISK <1 in 10,000 normal Not Available [facility] [address], [place], [address], 08/29/2024 17:09:49 08/30/19 25 08/29/2024 [UNIT Y] ANEUP LOIDY NIPT trisomy 18 LOW RISK <1 in 10,000 normal Not Available [facility] [address], [place], [address], 08/29/2024 17:09:49 08/30/19 25 08/29/2024 [UNIT Y] ANEUP LOIDY NIPT trisomy 21 LOW RISK <1 in 10,000 normal Not Available [facility] [address], [place], [address], 08/29/2024 17:09:49 08/30/19 25 08/29/2024 [UNIT Y] ANEUP LOIDY NIPT sex FEMALE normal Not Available [facility] [address], [place], [address], 08/29/2024 17:09:49 08/30/19 25 08/29/2024 [UNIT Y] ANEUP LOIDY NIPT gestation SINGLE TON normal Not Available [facility] [address], [place], [address], 08/29/2024 17:09:49 08/30/1908/29/2024 [UNIT Y] ANEUP LOIDY NIPT for detailed report, see pdf See PDF normal Not Available [facility] [address], [place], [address], 08/29/2024 17:09:49 11/22/1911/21/2024 CULTU RE: URINE result report SEE RESULT S BELOW Test: Cultu re: Urine Speci men Sourc e: Urine - Clean Catch Speci men Type: Urine Speci men Date: 2024 1309 Resul t Date: 2024 0251 Resul t Statu s: Final resul t Abnor mal: No Resul ting Lab: [facility] [address] [facility] [address] Tel: CULTU RE ----- ----- ----- --- No growt h in 1 day (dete ction level of 10,00 0 colon ies / ml.) Not Available [facility] (Lab) [address] [facility], [place], [address], 11/23/2024 03:57:03 11/22/19 25 11/21/2024 drug romi martinez, urine Cannabinoids : positi ve Not Available [facility] [address], [place], [address], 11/21/2024 12:00:41 01/03/20 25 01/02/2025 GTT - GESTA CHRIS Pablito Martinez, ACOG OB glucose, 1 hour screen 99 mg/dL 70-135 Not Available [facility] (Lab) [address] [facility], [place], [address], 01/03/2025 13:30:02 01/03/20 25 01/02/2025 HIV 1/2 ANTIG EN/AN TIBOD Y, REFLE X CONFI RMATI ON HIV antigen/anti body Nonrea ctive nonrea ctive HIV-1 antig en and HIV-1 /HIV- 2 antib odies were not detec piedad. No labor atory evide nce of HIV infec tion. Not Available [facility] (Lab) [address] [facility], [place], [address], 01/03/2025 13:30:03 01/03/20 25 01/02/2025 HEMAT OCRIT (HCT) HCT 33.9 % (based on docume nted legal sex) 34.0-4 5.0 low Not Available [facility] (Lab) [address] [facility], [place], [address], 01/03/2025 13:30:04 01/03/20 25 01/02/2025 HEMOG LOBIN (HGB) HGB 10.8 g/dL (based on docume nted legal sex) 11.6-1 5.4 low Not Available [facility] (Lab) [address] [facility], [place], [address], 01/03/2025 13:30:05 01/03/20 25 01/02/2025 RPR SCREE N, REFLE X TITER /CONF IRMAT ION RPR qualitative Nonrea ctive nonrea ctive Not Available [facility] (Lab) [address] [facility], [place], [address], 01/03/2025 13:30:06 10/23/19 25 10/22/2024 US, jean tric, 2nd or 3rd trime ster No observ ation record ed. [email or web address] [place] [address] [address], [place], [address], 10/22/2024 18:24:10 10/23/19 25 10/22/2024 US, obstminerva tric, 2nd or 3rd trime ster No observ ation record ed. [email or web address] [facility] [address], [place], [address], 10/22/2024 14:16:26 11/22/19 25 11/21/2024 US, jean caldwell, follo w-up No observ ation record ed. [facility] [address], [place], [address], 11/21/2024 18:34:46 11/22/19 25 11/21/2024 US, obste tric, follo w-up No observ ation record ed. [email or web address] [facility] [address], [place], [address], 11/21/2024 18:15:58 01/03/20 25 01/02/2025 US, obste tric, follo w-up No observ ation record ed. [email or web address] [facility] [address], [place], [address], 01/02/2025 18:27:04 01/03/20 25 01/02/2025 US, obste tric, follo w-up No observ ation record ed. [email or web address] [facility] [address], [place], [address], 01/28/2025 11:17:52 02/03/20 25 02/02/2025 imagi ng/di agnos tic resul t No observ ation record ed. [facility] [address], [place], [address], 02/18/2025 04:05:20 Result Notes None recorded. Problems Name Problem SNOMED Code Status Onset Date Resolution Date Notes Provider Name and Address Organization Details Recorded Time Cystic fibrosis 685933159 Completed Carrier Sandy Sales CNM [address], [place], [address], [place] [facility] 4 14:15:16 Seizure disorder 943593657 Completed childhoo d, not currentl y on meds Sandy Sales CNM [address], [place], [address], [place] [facility] 4 14:15:16 Deliveri es by [id number] Completed repeat Sandy Sales CNM [address], [place], [address], [facility] 4 14:15:16 Pregnanc y 90030664 Completed 202309/29/2023 CHAR June [facility], [facility] 5 11:35:59 Seizure disorder 768760389 Active 2024 Jennifer Song [facility], [facility] 5 12:23:46 Pregnanc y 85236242 Active 2024 CHARMeggan Watkins [facility], [facility] 5 11:35:59 Past pregnanc y history of section 979337178 Active 2024 x3, repeat YESSENIA CHAKRABORTY MD [address], [place], [address], [facility] 5 16:56:42 Problem Notes None recorded. Procedures Surgical History Date Name Laterality Status Provider Name and Address Organization Details Recorded Time 5 Date of Last Pap Smear completed Jennifer Song [facility] 07/18/2024 12:21:36 4 SECTION (SURG) completed Michelle Georges [facility] 09/26/2023 14:01:00 4 tooth extraction completed [facility] 04/19/2023 14:15:59 2 section completed [facility] 02/15/2023 15:59:55 8 section completed [facility] 02/15/2023 15:59:40 Imaging Results None recorded. [...] Not Available No t Available amoxicillin 875 mg-felipe mckenzie clavulanate 125 mg tablet TAKE 1 TABLET [...] and Address Organization Details Last Updated DateTime 02/18/2025 162.56 cm 43.9 kg/m2 006830.65 g 119/74 mm[Hg] CHACHA HAWK [facility] 02/18/2025 12:02:49 Social History Question Answer Notes LastModified by Organizat ion Details LastModified Time Tobacco Smoking Status Former Smoker Jennifer infante, [facility] 07/18/2024 12:23:04 If You Are , What Was Your Level Of Alcohol Consumption Prior To ? Occasional [email or web address] Information not available 07/18/2024 Are You Blind [...] Or The Highest Degree You Have Received? CI92036-4 Information not available 05/17/2023 Are There Any [...] Have Difficulty Walking Or Climbing Stairs? No Information not available 08/01/2023 Sex: Unknown Functional Status Question Answer Note LastModified by Organizat ion Details LastModified Time Do you use any illicit or recreational drugs? No Information not available 05/17/2023 Do you or have you ever used any other forms of tobacco or nicotine? Yes [email or web address] Information not available 06/27/2024 What is your level of alcohol consumption? None Information not available 05/17/2023 Are you able to walk independently without assistance or assistive devices? [email or web address] Information not available 05/17/2023 Are you able to care for yourself independently? Yes [email or web address] Information not available 08/01/2023 Do you have difficulty dressing, bathing, grooming, or toileting? No [email or web address] Information not available 08/01/2023 Do you or have you ever used e-cigarettes or vape? Current user of electronic cigarettes [email or web address] Information not available 06/27/2024 What is your exercise level? None Information not available 05/17/2023 Mental Status Question Answer Note LastModified by Organization D etails LastModified Time Do you feel stressed (tense, restless, nervous, or anxious, or unable to sleep at night)? [id number] Information not available 05/17/2023 Family History Relationship [...] N Drug/Latex Allergies/Reactions N Blood Transfusion N Dermatologic Disorders N Lung Disease N Defects or Inherited Disease N Breast Problem N Gestational Diabetes N Hematologic disorders N Anesthesia Complications N History of STI N Deep Vein Thrombosis N Polycystic ovary syndrome N Anxiety Disorder N Autoimmune disease N Arthritis N Infertility N Polyps N Acid Reflux (GERD) N History of abnormal pap N Cancer N Stroke N Varicosities N Neurologic/Epilepsy Y Endometriosis N High Cholesterol N Headaches N Fibromyalgia N Kidney Disease N Heart Problems N [...] ICD10 Code Diagnosis IMO Codes Diagnosis Note [id number] YESSENIA CHAKRABORTY MD [facility] [address] [address] 02/01/2025 11:45:08 02/01/2025 13:33:51 Past history of section 000849112 Z98.891 [id number] - x3- plan to repeat, scheduled 03/04/25 Gestation period, 35 weeks 52712780 Z3A.35 5322709 - continue PNV [id number] YESSENIA CHAKRABORTY MD [facility] [address] [address] 02/04/2025 11:46:42 02/04/2025 12:21:34 Past history of section 136302232 Z98.891 775272 - x3- plan to repeat, scheduled 03/04/25 Gestation period, 35 weeks 78538371 Z3A.35 0895780 - continue PNV [id number] Daren Livingston MD [facility] [address],[place] [address] 02/11/2025 11:11:50 02/11/2025 12:32:07 care status 545480643 Z34.83 [id number] YESSENIA CHAKRABORTY MD [facility] [address] [address] 02/18/2025 11:56:05 02/18/2025 12:21:27 Past history of section 989029935 Z98.891 488623 - x3- plan to repeat, scheduled 03/04/25 Gestation period, 37 weeks 76494601 Z3A.37 0914853 - continue PNV Health Concerns Section Related Observation LastModified by Organization Detai ls LastModified Time None Recorded Concern Status LastModified by Organization Details LastModified Time None Recorded Payers Encounter Date Sequence Insurance Name Policy Number Policy Beck Covered Member ID Beck Member ID Guarantor Name 02/18/2025 1 [employer] [facility] (MEDICAID HMO) [id number] Ricdionedee Augie [id number] Sriram Ghosh Notes Date Note Type Note Provider Name and Address Organization Details Recorded Time 02/18/2025 text/html Generic HPI TemplateReported by Patient YESSENIA CHAKRABORTY MD [address], [place], [address], [facility] 02/18/2025 12:20:45 OBGyn Episode Ob Episode Information Episode Created Date Number of Fetuses Patient Bloodtype Patient rh Status Prepregnancy Weight lbs Domestic Partner Domestic Partner Phone Father Name Court Deputy Status 08/28/19 25 1 O Positive 229.6 Oscar OPEN Fetus Data First Name Last Name Admitted to NICU Weight (g) Sex Living Outcome Pediatric Complications Fetus ID Race Codes Race Delivery Type [id number] Problems Problem Notes Problem Name Start Date End Date Resolution Snomed Code Not e Past history of section 08/30/2024 [id number] x3, repeat Conrado Calculation Initial Conrado Date Initial Exam Date Initial Exam Provider Initial Ultrasound Date Last Menstrual Period Date Ultra Sound Weeks Gestation 03/06/2025 08/27/2024 [email or web address] 08/23/2024 12 Eighteen To Twenty Week Conrado [...] Type Weight in lbs Pre/Post Dialysis Refused 229.831942332325 BP Diastolic BP Location Tested BP Systolic BP Type 85 L arm 123 sitting Fetus Heart Rate Present A 153 Fetus Movement Comments Patient presents to [facility] care. Hx of c section x3, plan [...] Weight in lbs Pre/Post Dialysis Refused Weight 229.294370143376 BP Diastolic BP Location Tested BP Systolic BP Type 82 L arm 121 sitting Fetus Heart Rate Present A 140 Fetus Movement A No Comments Doing well. Dizziness improv ed. No cramping or bleeding. LR female NIPT! Other OB labs wnl. Discussed anatomy US for next visit. RTC 3-4 weeks. Flowsheet Date 10/22/2024 Charles Score Blood Edema [...] Weight in lbs Pre/Post Dialysis Refused Weight 232.6112172469 BP Diastolic BP Location Tested BP Systolic [...] Type Weight in lbs Pre/Post Dialysis Refused 237.401448024541 BP Diastolic BP Location Tested BP Systolic [...] Type Weight in lbs Pre/Post Dialysis Refused 242.366244144986 BP Diastolic BP Location Tested BP Systolic [...] Present Fetus Movement Comments Flowsheet Date 01/02/2025 Charles Score Blood Edema Fundus Height Fundus Units Glucose Ketones Leukocytes Nitrite Labor Signs Protein Cervic Dilation Cervic Effacement Cervic Station Type Weight in lbs Pre/Post Dialysis Refused Weight 244.542445796480 BP Diastolic BP Location Tested BP Systolic [...] Type Weight in lbs Pre/Post Dialysis Refused 246.601277515959 BP Diastolic BP Location Tested BP Systolic [...] Weight in lbs Pre/Post Dialysis Refused Weight 205.548195034191 BP Diastolic BP Location Tested BP Systolic [...] Weight in lbs Pre/Post Dialysis Refused Weight 254.470287029112 BP Diastolic BP Location Tested BP Systolic BP Type 70 L arm 139 sitting Fetus Heart Rate Present A 140 Fetus Movement A Yes Comments Was seen in the ER Tuesday for pelvic pain. Was told she had Wilkin Joyce contractions. Stopped when she went to the hospital. No further episodes of contractions. No bleeding or LOF. Will start testing for obesity next week. RTC 1 week. Flowsheet Date 02/11/2025 Charles Score Blood Edema Fundus Height Fundus Units Glucose Ketones Leukocytes Nitrite Labor Signs Protein Cervic Dilation Cervic Effacement Cervic Station Type Weight in lbs Pre/Post Dialysis Refused 254.151417946325 BP Diastolic BP Location Tested BP Systolic [...] Weight in lbs Pre/Post Dialysis Refused Weight 256.156323973921 BP Diastolic BP Location Tested BP Systolic [...] ated Date of Delivery false Thalassemia (Estonian, Montenegrin, Mediterranean, Or Background): MCV < 80 false Neural Tube Defect (Meningomyelocele, Spina Bifi da, Or Anencephaly) false Congenital Heart Defect false Down Syndrome false Douglas-Sachs (eg, Mandaen, Cajun, [place]an-[place]) f alse Ned Disease false Sickle Cell Disease Or Trait () false Hemophilia Or Other Blood Disorders false Muscular Dystrophy false Cystic Fibrosis false Sol's Chorea false Intellectual Disability/Autism false Other Inherited [...]
--- OUTSIDE RECORDS SUMMARY | 2025-02-23 21:29 | XMS_ITS | Continuity of Care Document ---
Author Organization [facility] [place] Address [address] [place] [place] [address] Assessment No assessment recorded. Plan of Treatment [...] Procedures None recorded. Surgeries None recorded. Imaging US, obstetric , follow-up 2024 025 [facility] [address], [place], [address], 01/03/2025 15:08:11 Medication Orders None recorded. Patient TargetsNo targets recorded. Patient InstructionsNo instructions recorded. Reason for Referral None Reported. Results Created Date Observation Date Name Description Value Unit Range Abnormal Flag Note LastModifiedBy Organization Detail LastModifiedTime 08/30/1908/29/2024 [UNIT Y] ANEUP LOIDY NIPT fraction 3.8% normal Not Available Mary Jo chapman [address], [place], [address], 08/29/2024 17:09:49 08/30/19 25 08/29/2024 [UNIT Y] ANEUP LOIDY NIPT 22Q11.2 microdeletio n LOW RISK <1 in 10,000 normal Not Available Russell palma [address], [place], [address], 08/29/2024 17:09:49 08/30/19 25 08/29/2024 [UNIT Y] ANEUP LOIDY NIPT sex chromosome aneuploidy NOT DETECT ED normal Not Available [facility] [address], [place], [address], 08/29/2024 17:09:49 08/30/19 25 08/29/2024 [UNIT Y] ANEUP LOIDY NIPT monosomy X LOW RISK <1 in 10,000 normal Not Available [facility] [address], [place], [address], 08/29/2024 17:09:49 08/30/19 25 08/29/2024 [UNIT Y] ANEUP LOIDY NIPT trisomy 13 LOW RISK <1 in 10,000 normal Not Available [facility] [address], [place], [address], 08/29/2024 17:09:49 08/30/19 25 08/29/2024 [UNIT Y] ANEUP LOIDY NIPT trisomy 18 LOW RISK <1 in 10,000 normal Not Available [facility] [address], [place], [address], 08/29/2024 17:09:49 08/30/19 25 08/29/2024 [UNIT Y] ANEUP LOIDY NIPT trisomy 21 LOW RISK <1 in 10,000 normal Not Available [facility] [address], [place], [address], 08/29/2024 17:09:49 08/30/19 25 08/29/2024 [UNIT Y] ANEUP LOIDY NIPT sex FEMALE normal Not Available [facility] [address], [place], [address], 08/29/2024 17:09:49 08/30/19 25 08/29/2024 [UNIT Y] ANEUP LOIDY NIPT gestation SINGLE TON normal Not Available [facility] [address], [place], [address], 08/29/2024 17:09:49 08/30/19 25 08/29/2024 [UNIT Y] ANEUP LOIDY NIPT for detailed report, see pdf See PDF normal Not Available [facility] [address], [place], [address], 08/29/2024 17:09:49 11/22/19 25 11/21/2024 CULTU RE: URINE result report SEE RESULT S BELOW Test: Cultu re: Urine Speci men Sourc e: Urine - Clean Catch Speci men Type: Urine Speci men Date: 2024 1309 Resul t Date: 2024 0251 Resul t Statu s: Final resul t Abnor mal: No Resul ting Lab: [facility] [address] [facility] [address] Tel: CULTU RE ----- ----- ----- --- No growt h in 1 day (dete ction level of 10,00 0 colon ies / ml.) Not Available [facility] (Lab) [address] [facility], [place], [address], 11/23/2024 03:57:03 11/22/1911/21/2024 drug romi martinez, urine Cannabinoids : positi ve Not Available [facility] [address], [place], [address], 11/21/2024 12:00:41 01/03/20 25 01/02/2025 GTT - GESTA CHRIS Pablito Martinez, ACOG OB glucose, 1 hour screen 99 mg/dL 70-135 Not Available [facility] (Lab) [address] [facility], [place], [address], 01/03/2025 13:30:02 01/03/20 25 01/02/2025 HIV 1/2 ANTIG EN/AN TIBOD Y, REFLE X CONFI RMATI ON HIV antigen/anti body Nonrea ctive nonrea ctive HIV-1 antig en and HIV-1 /HIV- 2 antib odies were not detec piedad. No labor atory evide nce of HIV infec tion. Not Available [facility] (Lab) [address] [facility], [place], [address], 01/03/2025 13:30:03 01/03/20 25 01/02/2025 HEMAT OCRIT (HCT) HCT 33.9 % (based on docume nted legal sex) 34.0-4 5.0 low Not Available [facility] (Lab) [address] [facility], [place], [address], 01/03/2025 13:30:04 01/03/20 25 01/02/2025 HEMOG LOBIN (HGB) HGB 10.8 g/dL (based on docume nted legal sex) 11.6-1 5.4 low Not Available [facility] (Lab) [address] [facility], [place], [address], 01/03/2025 13:30:05 01/03/20 25 01/02/2025 RPR SCREE N, REFLE X TITER /CONF IRMAT ION RPR qualitative Nonrea ctive nonrea ctive Not Available [facility] (Lab) [address] [facility], [place], [address], 01/03/2025 13:30:06 10/23/19 25 10/22/2024 US, obste tric, 2nd or 3rd trime ster No observ ation record ed. [email or web address] [facility] [address], [place], [address], 10/22/2024 18:24:10 10/23/19 25 10/22/2024 US, obste tric, 2nd or 3rd trime ster No observ ation record ed. [email or web address] [facility] [address], [place], [address], 10/22/2024 14:16:26 11/22/19 25 11/21/2024 US, obste tric, follo w-up No observ ation record ed. [email or web address] [address], [place], [address], 11/21/2024 18:34:46 11/22/19 25 11/21/2024 US, obste tric, follo w-up No observ ation record ed. [email or web address] [facility] [address], [place], [address], 11/21/2024 18:15:58 01/03/20 25 01/02/2025 US, obste tric, follo w-up No observ ation record ed. [email or web address] [facility] [address], [place], [address], 01/02/2025 18:27:04 01/03/20 25 01/02/2025 US, obste tric, follo w-up No observ ation record ed. [email or web address] [facility] [address], [place], [address], 01/28/2025 11:17:52 02/03/20 25 02/02/2025 imagi ng/di agnos tic resul t No observ ation record ed. [facility] [address], [place], [address], 02/18/2025 04:05:20 Result Notes None recorded. Problems Name Problem SNOMED Code Status Onset Date Resolution Date Notes Provider Name and Address Organization Details Recorded Time Cystic fibrosis 170190373 Completed Carrier Sandy Sales CNM [address], [place], [address], [place] [facility] 14:15:16 Seizure disorder 963886639 Completed childhoo d, not currentl y on meds Sandy Sales, INA [address], [place], [address], [facility] 4 14:15:16 Deliveri es by [id number] Completed repeat Sandy Sales CNM [address], [place], [address], [facility] 4 14:15:16 Pregnanc y 00795192 Completed 202309/29/2023 CHAR Watkins [facility], [facility] 5 11:35:59 Seizure disorder 628453263 Active 2024 Jennifer Song [facility] 5 12:23:46 Pregnanc y 86257264 Active 2024 CHAR Watkins [facility], [facility] 5 11:35:59 Past pregnanc y history of section 609412369 Active 2024 x3, repeat YESSENIA CHAKRABORTY MD [address], [place], [address], [facility] 5 16:56:42 Problem Notes None recorded. Procedures Surgical History Date Name Laterality Status Provider Name and Address Organization Details Recorded Time 5 Date of Last Pap Smear completed Jennifer Song [facility] 07/18/2024 12:21:36 4 SECTION (SURG) completed Michelle Georges [facility] 09/26/2023 14:01:00 4 tooth extraction completed Alexandria Mejía [facility] 04/19/2023 14:15:59 2 section completed Alexandria Mejía [facility] 02/15/2023 15:59:55 8 section completed Alexandria Bradyparrish [facility] 02/15/2023 15:59:40 Imaging Results None recorded. [...] Not Available No t Available amoxicillin 875 mg-potmorenou m clavulanate 125 mg tablet TAKE 1 [...] Updated DateTime 01/02/2025 162.56 cm 41.9 kg/m2 589351.54 g 117/77 mm[Hg] Meli Brooks [facility] 01/02/2025 16:50:19 Social History Question Answer Notes LastModified by Organizat ion Details LastModified Time Tobacco Smoking Status Former Smoker Jennifer infante, [facility] 07/18/2024 12:23:04 If You Are , What Was Your Level Of Alcohol Consumption Prior To ? Occasional [email or web address] Information not available 07/18/2024 Are You Blind [...] Or The Highest Degree You Have Received? [id number] Information not available 05/17/2023 Are There Any [...] Have Difficulty Walking Or Climbing Stairs? No [email or web address] Information not available 08/01/2023 Sex: Unknown Functional Status Question Answer Note LastModified by Organizat ion Details LastModified Time Do you use any illicit or recreational drugs? No Information not available 05/17/2023 Do you or have you ever used any other forms of tobacco or nicotine? Yes [email or web address] Information not available 06/27/2024 What is your level of alcohol consumption? None Information not available 05/17/2023 Are you able to walk independently without assistance or assistive devices? [email or web address] Information not available 05/17/2023 Are you able to care for yourself independently? Yes [email or web address] Information not available 08/01/2023 Do you have difficulty dressing, bathing, grooming, or toileting? No [email or web address] Information not available 08/01/2023 Do you or have you ever used e-cigarettes or vape? Current user of electronic cigarettes [email or web address] Information not available 06/27/2024 What is your exercise level? None Information not available 05/17/2023 Mental Status Question Answer Note LastModified by Organization D etails LastModified Time Do you feel stressed (tense, restless, nervous, or anxious, or unable to sleep at night)? [id number] Information not available 05/17/2023 Family History Relationship [...] ICD10 Code Diagnosis IMO Codes Diagnosis Note [id number] YESSENIA CHAKRABORTY MD [facility] [address],[place] [address] 12/19/2024 11:57:38 12/19/2024 12:53:20 Past history of section 158561250 Z98.891 284337 - x3- plan to repeat screening 2437 32362 Z36.89 Gestation period, 29 weeks 49332275 Z3A.29 0083335 - continue PNV [id number] YESSENIA CHAKRABORTY MD [facility] [address],[place] [address] 01/02/2025 15:56:45 01/02/2025 16:40:41 Uterine size for dates discrepancy 125652570 O26.843 Z3A.31 0837070 [id number] YESSENIA CHAKRABORTY MD [facility] [address],[place] [address] 01/02/2025 16:26:38 01/02/2025 17:24:21 Past history of section 204406686 Z98.891 797543 - x3- plan to repeat Gestation period, 31 weeks 70296344 Z3A.31 9822722 - continue PNV Health Concerns Section Related Observation LastModified by Organization Detai ls LastModified Time None Recorded Concern Status LastModified by Organization Details LastModified Time None Recorded Payers Encounter Date Sequence Insurance Name Policy Number Policy Beck Covered Member ID Beck Member ID Guarantor Name 01/02/2025 1 [facility] (MEDICAID HMO) [id number] Sriram Ghosh [id number] Sriram Ghosh Notes Date Note Type Note Provider Name and Address Organization Details Recorded Time 01/02/2025 text/html Generic HPI TemplateReported by Patient YESSENIA CHAKRABORTY MD [address], [place], [address], [place] [facility] 01/02/2025 17:20:45 OBGyn Episode Ob Episode Information Episode Created Date Number of Fetuses Patient Bloodtype Patient rh Status Prepregnancy Weight lbs Domestic Partner Domestic Partner Phone Father Name Worker'S Compensation Claims Examiner Status 08/28/19 25 1 O Positive 229.6 Oscar OPEN Fetus Data First Name Last Name Admitted to NICU Weight (g) Sex Living Outcome Pediatric Complications Fetus ID Race Codes Race Delivery Type [id number] Problems Problem Notes Problem Name Start Date End Date Resolution Snomed Code Not e Past history of section 08/30/2024 996446172 x3, repeat Conrado Calculation Initial Conrado Date Initial Exam Date Initial Exam Provider Initial Ultrasound Date Last Menstrual Period Date Ultra Sound Weeks Gestation 03/06/2025 08/27/2024 [email or web address] 08/23/2024 12 Eighteen To Twenty Week Conrado Update Ultra Sound Date Fundal Height At Umbil Quickening Date Ultra Sound Latest Weeks Gestation Final Conrado Confirmed By Final Conrado Confirmed Date Final Conrado Date Ultra Sound Latest Days Gestation 0 0 Pre- Flowsheet Flowsheet Date 08/29/2024 Charles Score Blood Edema Fundus Height Fundus Units Glucose Ketones Leukocytes Nitrite Labor Signs Protein Cervic Dilation Cervic Effacement Cervic Station Type Weight in lbs Pre/Post Dialysis Refused 229.569781246762 BP Diastolic BP Location Tested BP Systolic BP Type 85 L arm 123 sitting Fetus Heart Rate Present A 153 Fetus Movement Comments Patient [facility] to [facility] care. Hx of c section x3, [...] Weight in lbs Pre/Post Dialysis Refused Weight 229.250561948908 BP Diastolic BP Location Tested BP Systolic [...] Weight in lbs Pre/Post Dialysis Refused Weight 232.8342086199 BP Diastolic BP Location Tested BP Systolic [...] Type Weight in lbs Pre/Post Dialysis Refused 237.656529231686 BP Diastolic BP Location Tested BP Systolic [...] Type Weight in lbs Pre/Post Dialysis Refused 242.932089871147 BP Diastolic BP Location Tested BP Systolic [...] Weight in lbs Pre/Post Dialysis Refused Weight 244.521085876999 BP Diastolic BP Location Tested BP Systolic [...] Type Weight in lbs Pre/Post Dialysis Refused 246.071336471178 BP Diastolic BP Location Tested BP Systolic [...] Weight in lbs Pre/Post Dialysis Refused Weight 205.667690719104 BP Diastolic BP Location Tested BP Systolic [...] Weight in lbs Pre/Post Dialysis Refused Weight 254.406011490554 BP Diastolic BP Location Tested BP Systolic BP Type 70 L arm 139 sitting Fetus Heart Rate Present A 140 Fetus Movement A Yes Comments Was seen in the ER Tuesday for pelvic pain. Was told she had [place] contractions. Stopped when she went to the hospital. No further episodes of contractions. No bleeding or LOF. Will start testing for obesity next week. RTC 1 week. Flowsheet Date 02/11/2025 Charles Score Blood Edema Fundus Height Fundus Units Glucose Ketones Leukocytes Nitrite Labor Signs Protein Cervic Dilation Cervic Effacement Cervic Station Type Weight in lbs Pre/Post Dialysis Refused 254.767657313793 BP Diastolic BP Location Tested BP Systolic [...] Weight in lbs Pre/Post Dialysis Refused Weight 256.648556644597 BP Diastolic BP Location Tested BP Systolic [...] Estim ated Date of Delivery false Thalassemia (Croatian, Turkish, Mediterranean, Or Background): MCV < 80 false Neural Tube Defect (Meningomyelocele, Spina Bifi da, Or Anencephaly) false Congenital Heart Defect false Down Syndrome false Douglas-Sachs (eg, Baptist, Cajun, Macedonian-[place]) f alse Ned Disease false Sickle Cell Disease Or Trait () false Hemophilia Or Other Blood Disorders false Muscular Dystrophy false Cystic Fibrosis false Hebron's Chorea false Intellectual Disability/Autism false Other Inherited [...]
--- OUTSIDE RECORDS SUMMARY | 2025-02-23 21:29 | XMS_ITS | Continuity of Care Document ---
Author Organization [facility] Address [address] [place] [address] Assessment Encounter Date Assessment Date Assessment LastModified by Organization Details LastModified Time 02/11/2025 02/11/2025 Patient is ___weeks . Discussed plan. [email or web address] Not available 02/11/2025 12:10:53 Plan of Treatment Reminders Order Date Submit Date Provider Last Modified By Organization Details Last Modified Time Details Appointments OB ROUTINE 2025 10:30A Rebecca LIVINGSTON MD Not available Not available Not available [...] Available Mary Jo chapman [address], [place], [address], 08/29/2024 17:09:49 08/30/1908/29/2024 [UNIT Y] ANEUP LOIDY NIPT 22Q11.2 microdeletio n LOW RISK <1 in 10,000 normal Not Available Russell e [address], [place], [address], 08/29/2024 17:09:49 08/30/19 25 08/29/2024 [UNIT Y] ANEUP LOIDY NIPT sex chromosome aneuploidy NOT DETECT ED normal Not Available [facility] [address], [place], [address], 08/29/2024 17:09:49 08/30/19 25 08/29/2024 [UNIT Y] ANEUP LOIDY NIPT monosomy X LOW RISK <1 in 10,000 normal Not Available [facility] [address], [place], [address], 08/29/2024 17:09:49 08/30/19 25 08/29/2024 [UNIT Y] ANEUP LOIDY NIPT trisomy 13 LOW RISK <1 in 10,000 normal Not Available [facility] [address], [place], [address], 08/29/2024 17:09:49 08/30/19 25 08/29/2024 [UNIT Y] ANEUP LOIDY NIPT trisomy 18 LOW RISK <1 in 10,000 normal Not Available [facility] [address], [place], [address], 08/29/2024 17:09:49 08/30/19 25 08/29/2024 [UNIT Y] ANEUP LOIDY NIPT trisomy 21 LOW RISK <1 in 10,000 normal Not Available [facility] [address], [place], [address], 08/29/2024 17:09:49 08/30/19 25 08/29/2024 [UNIT Y] ANEUP LOIDY NIPT sex FEMALE normal Not Available [facility] [address], [place], [address], 08/29/2024 17:09:49 08/30/19 25 08/29/2024 [UNIT Y] ANEUP LOIDY NIPT gestation SINGLE TON normal Not Available [facility] [address], [place], [address], 08/29/2024 17:09:49 08/30/19 25 08/29/2024 [UNIT Y] ANEUP LOIDY NIPT for detailed report, see pdf See PDF normal Not Available [facility] [address], [place], [address], 08/29/2024 17:09:49 11/22/19 25 11/21/2024 CULTU RE: URINE result report SEE RESULT S BELOW Test: Cultu re: Urine Speci men Sourc e: Urine - Clean Catch Speci men Type: Urine Speci men Date: 2024 1309 Resul t Date: 2024 0251 Resul t Statu s: Final resul t Abnor mal: No Resul ting Lab: [facility] [address] [facility] [address] Tel: CULTU RE ----- ----- ----- --- No growt h in 1 day (dete ction level of 10,00 0 colon ies / ml.) Not Available [facility] (Lab) [address] [facility], [place], [address], 11/23/2024 03:57:03 11/22/19 25 11/21/2024 drug romi martinez, urine Cannabinoids : positi ve Not Available [place] [address], [place], [address], 11/21/2024 12:00:41 01/03/20 25 01/02/2025 GTT - GESTA CHRIS Pablito Martinez, ACOG OB glucose, 1 hour screen 99 mg/dL 70-135 Not Available [facility] (Lab) [address] [facility], [place], [address], 01/03/2025 13:30:02 01/03/20 25 01/02/2025 HIV 1/2 ANTIG EN/AN TIBOD Y, REFLE X CONFI RMATI ON HIV antigen/anti body Nonrea ctive nonrea ctive HIV-1 antig en and HIV-1 /HIV- 2 antib odies were not detec piedad. No labor atory evide nce of HIV infec tion. Not Available [facility] (Lab) [address] [facility], [place], [address], 01/03/2025 13:30:03 01/03/20 25 01/02/2025 HEMAT OCRIT (HCT) HCT 33.9 % (based on docume nted legal sex) 34.0-4 5.0 low Not Available [facility] (Lab) [address] [facility], [place], [address], 01/03/2025 13:30:04 01/03/20 25 01/02/2025 HEMOG LOBIN (HGB) HGB 10.8 g/dL (based on docume nted legal sex) 11.6-1 5.4 low Not Available [facility] (Lab) [address] [facility], [place], [address], 01/03/2025 13:30:05 01/03/20 25 01/02/2025 RPR SCREE N, REFLE X TITER /CONF IRMAT ION RPR qualitative Nonrea ctive nonrea ctive Not Available [facility] (Lab) [address] [facility], [place], [address], 01/03/2025 13:30:06 10/23/19 25 10/22/2024 US, obste tric, 2nd or 3rd trime ster No observ ation record ed. [email or web address] [place] [address], [place], [address], 10/22/2024 18:24:10 10/23/19 25 10/22/2024 US, obste tric, 2nd or 3rd trime ster No observ ation record ed. [email or web address] [place] [address], [place], [address], 10/22/2024 14:16:26 11/22/19 25 11/21/2024 US, obste tric, follo w-up No observ ation [facility] ed. [email or web address] [address], [place], [address], 11/21/2024 18:34:46 11/22/19 25 11/21/2024 US, obste tric, follo w-up No observ ation record ed. [email or web address] [address] [address], [place], [address], 11/21/2024 18:15:58 01/03/20 25 01/02/2025 US, obste tric, follo w-up No observ ation record ed. [email or web address] [place] [address], [place], [address], 01/02/2025 18:27:04 01/03/20 25 01/02/2025 US, obste tric, follo w-up No observ ation record ed. [email or web address] [place] [address], [place], [address], 01/28/2025 11:17:52 02/03/20 25 02/02/2025 imagi ng/di agnos tic resul t No observ ation record ed. [facility] [address], [place], [address], 02/18/2025 04:05:20 Result Notes None recorded. Problems Name Problem SNOMED Code Status Onset Date Resolution Date Notes Provider Name and Address Organization Details Recorded Time Cystic fibrosis 003756303 Completed Carrier Sandy Sales CNM [address], [place], [address], [place] [facility] 4 14:15:16 Seizure disorder 518539664 Completed childhoo d, not currentl y on meds Sandy Sales CNM [address], [place], [address], [facility] 4 14:15:16 Deliveri es by [id number] Completed repeat Sandy Sales CNM [address], [place], [address], [facility] 4 14:15:16 Pregnanc y 92943251 Completed 202309/29/2023 CHAR Watkins [facility], [facility] 5 11:35:59 Seizure disorder 274067188 Active [address] [facility] 5 12:23:46 Pregnanc y 80948796 Active [address] [facility] 5 11:35:59 Past pregnanc y history of section 153002534 Active 2024 x3, repeat YESSENIA CHAKRABORTY MD [address], [place], [address], [facility] 5 16:56:42 Problem Notes None recorded. Procedures Surgical History Date Name Laterality Status Provider Name and Address Organization Details Recorded Time 5 Date of Last Pap Smear completed Jennifer Song [facility] 07/18/2024 12:21:36 4 SECTION (SURG) completed Michelle Georges [facility] 09/26/2023 14:01:00 4 tooth extraction completed Alexandria Mejía [facility] 04/19/2023 14:15:59 2 section completed Alexandria [facility] 02/15/2023 15:59:55 8 section completed Alexandria Swayne [facility] 02/15/2023 15:59:40 Imaging Results None recorded. [...] Available Not Available Vitals Date Recorded Body weight Systolic And Diastolic Provider Name and Address Organization Details Last Updated DateTime 02/11/2025 017116.76355 g 119/71 mm[Hg] Jeannie Welsh [facility] 02/11/2025 12:11:47 Social History Question Answer Notes LastModified by Organizat ion Details LastModified Time Tobacco Smoking Status Former Smoker Jennifer infante, [facility] 07/18/2024 12:23:04 If You Are , What Was Your Level Of Alcohol Consumption Prior To ? Occasional [email or web address] Information not available 07/18/2024 Are You Blind [...] Or The Highest Degree You Have Received? [id number] Information not available 05/17/2023 Are There Any [...] other forms of tobacco or nicotine? Yes Information not available 06/27/2024 What is your level of alcohol consumption? None Information not available 05/17/2023 Are you able to walk independently without assistance or assistive devices? YESWOREST Information not available 05/17/2023 Are you able to care for yourself independently? Yes [email or web address] Information not available 08/01/2023 Do you have difficulty dressing, bathing, grooming, or toileting? No [email or web address] Information not available 08/01/2023 Do you or have you ever used e-cigarettes or vape? Current user of electronic cigarettes [email or web address] Information not available 06/27/2024 What is your exercise level? None Information not available 05/17/2023 Mental Status Question Answer Note LastModified by Organization D etails LastModified Time Do you feel stressed (tense, restless, nervous, or anxious, or unable to sleep at night)? [id number] Information not available 05/17/2023 Family History Relationship [...] ICD10 Code Diagnosis IMO Codes Diagnosis Note [id number] YESSENIA CHAKRABORTY MD [place] [address] [address] 01/18/2025 13:59:43 01/18/2025 14:49:41 Past history of section 547414252 Z98.891 987060 - x3- plan to repeat, scheduled 03/04/25 Gestation period, 33 weeks 53997694 Z3A.33 2804558 - continue PNV [id number] YESSENIA CHAKRABORTY MD [place] [address] [address] 02/01/2025 11:45:08 02/01/2025 13:33:51 Past history of section 011965063 Z98.891 273962 - x3- plan to repeat, scheduled 03/04/25 Gestation period, 35 weeks 70256864 Z3A.35 0944692 - continue PNV 613751 YESSENIA CHAKRABORTY MD [place] [address] [address] 02/04/2025 11:46:42 02/04/2025 12:21:34 Past history of section 590116022 Z98.891 855364 - x3- plan to repeat, scheduled 03/04/25 Gestation period, 35 weeks 70072360 Z3A.35 6851319 - continue PNV [id number] Daren Livingston MD [place] [address] [address] 02/11/2025 11:11:50 02/11/2025 12:32:07 care status 883100475 Z34.83 [id number] Health Concerns Section Related Observation LastModified by Organization Detai ls LastModified Time None Recorded Concern Status LastModified by Organization Details LastModified Time None Recorded Payers Encounter Date Sequence Insurance Name Policy Number Policy Beck Covered Member ID Beck Member ID Guarantor Name 02/11/2025 1 [facility] (MEDICAID HMO) [id number] Sriram Ghosh [id number] Sriram Ghosh Notes Date Note Type Note Provider Name and Address Organization Details Recorded Time 02/11/2025 text/html Generic HPI TemplateReported by Patient Daren Livingston MD [address], [place], [address], [place] [facility] 02/11/2025 12:27:38 OBGyn Episode Ob Episode Information Episode Created Date Number of Fetuses Patient Bloodtype Patient rh Status Prepregnancy Weight lbs Domestic Partner Domestic Partner Phone Father Name Boiler Coverer Status 08/28/19 25 1 O Positive 229.6 Oscar OPEN Fetus Data First Name Last Name Admitted to NICU Weight (g) Sex Living Outcome Pediatric Complications Fetus ID Race Codes Race Delivery Type [id number] Problems Problem Notes Problem Name Start Date End Date Resolution Snomed Code Not e Past history of section 08/30/2024 091946658 x3, repeat Conrado Calculation Initial Conrado Date Initial Exam Date Initial Exam Provider Initial Ultrasound Date Last Menstrual Period Date Ultra Sound Weeks Gestation 03/06/2025 08/27/2024 [email or web address] 08/23/2024 12 Eighteen To Twenty Week Conrado [...] Type Weight in lbs Pre/Post Dialysis Refused 229.458082806344 BP Diastolic BP Location Tested BP Systolic BP Type 85 L arm 123 sitting Fetus Heart Rate Present A 153 Fetus Movement Comments Patient presents to [facility] care. Hx of c section [...] Weight in lbs Pre/Post Dialysis Refused Weight 229.036201413005 BP Diastolic BP Location Tested BP Systolic [...] Weight in lbs Pre/Post Dialysis Refused Weight 232.7780595255 BP Diastolic BP Location Tested BP Systolic [...] Type Weight in lbs Pre/Post Dialysis Refused 237.372343362099 BP Diastolic BP Location Tested BP Systolic [...] Type Weight in lbs Pre/Post Dialysis Refused 242.975945561358 BP Diastolic BP Location Tested BP Systolic [...] Weight in lbs Pre/Post Dialysis Refused Weight 244.121311877239 BP Diastolic BP Location Tested BP Systolic [...] Type Weight in lbs Pre/Post Dialysis Refused 246.857609534553 BP Diastolic BP Location Tested BP Systolic [...] Weight in lbs Pre/Post Dialysis Refused Weight 205.410584381003 BP Diastolic BP Location Tested BP Systolic [...] Weight in lbs Pre/Post Dialysis Refused Weight 254.798672758240 BP Diastolic BP Location Tested BP Systolic BP Type 70 L arm 139 sitting Fetus Heart Rate Present A 140 Fetus Movement A Yes Comments Was seen in the ER Tuesday for pelvic pain. Was told she had [place] contractions. Stopped when she went to the hospital. No further episodes of contractions. No bleeding or LOF. Will start testing for obesity next week. RTC 1 week. Flowsheet Date 02/11/2025 Charles Score Blood Edema Fundus Height Fundus Units Glucose Ketones Leukocytes Nitrite Labor Signs Protein Cervic Dilation Cervic Effacement Cervic Station Type Weight in lbs Pre/Post Dialysis Refused 254.026131242059 BP Diastolic BP Location Tested BP Systolic [...] Weight in lbs Pre/Post Dialysis Refused Weight 256.573821485379 BP Diastolic BP Location Tested BP Systolic [...] Estim ated Date of Delivery false Thalassemia ([place] Islander, Kazakh, Mediterranean, Or Background): MCV < 80 false Neural Tube Defect (Meningomyelocele, Spina Bifi da, Or Anencephaly) false Congenital Heart Defect false Down Syndrome false Douglas-Sachs (eg, Sabianist, Cajun, Kyrgyz-Morovis) f alse Ned Disease false Sickle Cell Disease Or Trait () false Hemophilia Or Other Blood Disorders false Muscular Dystrophy false Cystic Fibrosis false Hand's Chorea false Intellectual Disability/Autism false Other Inherited [...]
--- OUTSIDE RECORDS SUMMARY | 2025-02-23 21:29 | XMS_ITS | Continuity of Care Document ---
Author Organization [facility] Address [address] [place] [address] Assessment No assessment recorded. Plan of Treatment [...] Not Available Mary Jo Barajas[address], [place], [address], 08/29/2024 17:09:49 08/30/19 25 08/29/2024 [UNIT Y] ANEUP LOIDY NIPT 22Q11.2 microdeletio n LOW RISK <1 in 10,000 normal Not Available [address], [place], [address], 08/29/2024 17:09:49 08/30/19 25 08/29/2024 [UNIT Y] ANEUP LOIDY NIPT sex chromosome aneuploidy NOT DETECT ED normal Not Available [facility] [address], [place], [address], 08/29/2024 17:09:49 08/30/19 25 08/29/2024 [UNIT Y] ANEUP LOIDY NIPT monosomy X LOW RISK <1 in 10,000 normal Not Available [facility] [address], [place], [address], 08/29/2024 17:09:49 08/30/19 25 08/29/2024 [UNIT Y] ANEUP LOIDY NIPT trisomy 13 LOW RISK <1 in 10,000 normal Not Available [facility] [address], [place], [address], 08/29/2024 17:09:49 08/30/19 25 08/29/2024 [UNIT Y] ANEUP LOIDY NIPT trisomy 18 LOW RISK <1 in 10,000 normal Not Available [facility] [address], [place], [address], 08/29/2024 17:09:49 08/30/19 25 08/29/2024 [UNIT Y] ANEUP LOIDY NIPT trisomy 21 LOW RISK <1 in 10,000 normal Not Available [facility] [address], [place], [address], 08/29/2024 17:09:49 08/30/19 25 08/29/2024 [UNIT Y] ANEUP LOIDY NIPT sex FEMALE normal Not Available [facility] [address], [place], [address], 08/29/2024 17:09:49 08/30/19 25 08/29/2024 [UNIT Y] ANEUP LOIDY NIPT gestation SINGLE TON normal Not Available [facility] [address], [place], [address], 08/29/2024 17:09:49 08/30/1908/29/2024 [UNIT Y] ANEUP LOIDY NIPT for detailed report, see pdf See PDF normal Not Available [facility] [address], [place], [address], 08/29/2024 17:09:49 11/22/1911/21/2024 CULTU RE: URINE result report SEE RESULT S BELOW Test: Cultu re: Urine Speci men Sourc e: Urine - Clean Catch Speci men Type: Urine Speci men Date: 2024 1309 Resul t Date: 2024 0251 Resul t Statu s: Final resul t Abnor mal: No Resul ting Lab: [facility] [address] [facility] [address] Tel: CULTU RE ----- ----- ----- --- No growt h in 1 day (dete ction level of 10,00 0 colon ies / ml.) Not Available [facility] (Lab) [address], [place], [address], 11/23/2024 03:57:03 11/22/19 25 11/21/2024 drug romi martinez, urine Cannabinoids : positi ve Not Available [facility] [address], [place], [address], 11/21/2024 12:00:41 01/03/20 25 01/02/2025 GTT - GESTA CHRIS Pablito Martinez, ACOG OB glucose, 1 hour screen 99 mg/dL 70-135 Not Available [facility] (Lab) [address], [place], [address], 01/03/2025 13:30:02 01/03/20 25 01/02/2025 HIV 1/2 ANTIG EN/AN TIBOD Y, REFLE X CONFI RMATI ON HIV antigen/anti body Nonrea ctive nonrea ctive HIV-1 antig en and HIV-1 /HIV- 2 antib odies were not detec piedad. No labor atory evide nce of HIV infec tion. Not Available [facility] (Lab) [address], [place], [address], 01/03/2025 13:30:03 01/03/20 25 01/02/2025 HEMAT OCRIT (HCT) HCT 33.9 % (based on docume nted legal sex) 34.0-[address] [facility] (Lab) [address], [place], [address], 01/03/2025 13:30:04 01/03/20 25 01/02/2025 HEMOG LOBIN (HGB) HGB 10.8 g/dL (based on docume nted legal sex) 11.6-1 [address] [facility] (Lab) [address], [place], [address], 01/03/2025 13:30:05 01/03/20 25 01/02/2025 RPR SCREE N, REFLE X TITER /CONF IRMAT ION RPR qualitative Nonrea ctive nonrea ctive Not Available [facility] (Lab) [address], [place], [address], 01/03/2025 13:30:06 10/23/19 25 10/22/2024 US, jean tric, 2nd or 3rd trime ster No observ ation record ed. [email or web address] [place] [address] [address], [place], [address], 10/22/2024 18:24:10 10/23/19 25 10/22/2024 US, obstminerva tric, 2nd or 3rd trime ster No observ ation record ed. [email or web address] [facility] [address], [place], [address], 10/22/2024 14:16:26 11/22/19 25 11/21/2024 US, jean caldwell, follo w-up No observ ation record ed. [facility] [address], [place], [address], 11/21/2024 18:34:46 11/22/19 25 11/21/2024 US, obste tric, follo w-up No observ ation record ed. [email or web address] [facility] [address], [place], [address], 11/21/2024 18:15:58 01/03/20 25 01/02/2025 US, obste tric, follo w-up No observ ation record ed. [email or web address] [facility] [address], [place], [address], 01/02/2025 18:27:04 01/03/20 25 01/02/2025 US, obste tric, follo w-up No observ ation record ed. [email or web address] [facility] [address], [place], [address], 01/28/2025 11:17:52 02/03/20 25 02/02/2025 imagi ng/di agnos tic resul t No observ ation record ed. [facility] [address], [place], [address], 02/18/2025 04:05:20 Result Notes None recorded. Problems Name Problem SNOMED Code Status Onset Date Resolution Date Notes Provider Name and Address Organization Details Recorded Time Cystic fibrosis 983586893 Completed Carrier Sandy Sales CNM [address], [place], [address], [place] [facility] 4 14:15:16 Seizure disorder 829295296 Completed childhoo d, not currentl y on meds Sandy Sales CNM [address], [place], [address], [place] [facility] 4 14:15:16 Deliveri es by [id number] Completed repeat Sandy Sales CNM [address], [place], [address], [facility] 4 14:15:16 Pregnanc y 99353525 Completed 202309/29/2023 CHAR June [facility], [facility] 5 11:35:59 Seizure disorder 200225431 Active 2024 Jennifer Song [facility], [facility] 5 12:23:46 Pregnanc y 13554138 Active 2024 CHARMeggan Watkins [facility], [facility] 5 11:35:59 Past pregnanc y history of section 452948730 Active 2024 x3, repeat YESSENIA CHAKRABORTY MD [address], [place], [address], [facility] 5 16:56:42 Problem Notes None recorded. Procedures Surgical History Date Name Laterality Status Provider Name and Address Organization Details Recorded Time 5 Date of Last Pap Smear completed Jennifer Song [facility] 07/18/2024 12:21:36 4 SECTION (SURG) completed Michelle Georges [facility] 09/26/2023 14:01:00 4 tooth extraction completed [facility] 04/19/2023 14:15:59 2 section completed [facility] 02/15/2023 15:59:55 8 section completed [facility] 02/15/2023 15:59:40 Imaging Results None recorded. [...] and Address Organization Details Last Updated DateTime 02/04/2025 162.56 cm 43.6 kg/m2 357359.46 g 139/70 mm[Hg] CHACHA HAWK [facility] 02/04/2025 11:56:21 Social History Question Answer Notes LastModified by Organizat ion Details LastModified Time Tobacco Smoking Status Former Smoker Jennifer infante, [facility] 07/18/2024 12:23:04 If You Are , What Was Your Level Of Alcohol Consumption Prior To ? Occasional [email or web address] Information not available 07/18/2024 Are You Blind [...] Or The Highest Degree You Have Received? [id number] Information not available 05/17/2023 Are There Any [...] Have Difficulty Walking Or Climbing Stairs? No [email or web address] Information not available 08/01/2023 Sex: Unknown Functional Status Question Answer Note LastModified by Organizat ion Details LastModified Time Do you use any illicit or recreational drugs? No Information not available 05/17/2023 Do you or have you ever used any other forms of tobacco or nicotine? Yes [email or web address] Information not available 06/27/2024 What is your level of alcohol consumption? None Information not available 05/17/2023 Are you able to walk independently without assistance or assistive devices? [email or web address] Information not available 05/17/2023 Are you able to care for yourself independently? Yes [email or web address] Information not available 08/01/2023 Do you have difficulty dressing, bathing, grooming, or toileting? No [email or web address] Information not available 08/01/2023 Do you or have you ever used e-cigarettes or vape? Current user of electronic cigarettes Information not available 06/27/2024 What is your exercise level? None Information not available 05/17/2023 Mental Status Question Answer Note LastModified by Organization D etails LastModified Time Do you feel stressed (tense, restless, nervous, or anxious, or unable to sleep at night)? [id number] Information not available 05/17/2023 Family History Relationship [...] ICD10 Code Diagnosis IMO Codes Diagnosis Note [id number] YESSENIA CHAKRABORTY MD [facility] [address],[place] [address] 01/18/2025 13:59:43 01/18/2025 14:49:41 Past history of section 894618124 Z98.891 477027 - x3- plan to repeat, scheduled 03/04/25 Gestation period, 33 weeks 96746144 Z3A.33 1112664 - continue PNV [id number] YESSENIA CHAKRABORTY MD [facility] [address] [address] 02/01/2025 11:45:08 02/01/2025 13:33:51 Past history of section 442235192 Z98.891 485343 - x3- plan to repeat, scheduled 03/04/25 Gestation period, 35 weeks 86243040 Z3A.35 7274240 - continue PNV [id number] YESSENIA CHAKRABORTY MD [facility] [address],[place] [address] 02/04/2025 11:46:42 02/04/2025 12:21:34 Past history of section 529514370 Z98.891 752965 - x3- plan to repeat, scheduled 03/04/25 Gestation period, 35 weeks 42360515 Z3A.35 4582189 - continue PNV Health Concerns Section Related Observation LastModified by Organization Detai ls LastModified Time None Recorded Concern Status LastModified by Organization Details LastModified Time None Recorded Payers Encounter Date Sequence Insurance Name Policy Number Policy Beck Covered Member ID Beck Member ID Guarantor Name 02/04/2025 1 [facility] (MEDICAID HMO) [id number] Sriram Ghosh [id number] Sriram Ghosh Notes Date Note Type Note Provider Name and Address Organization Details Recorded Time 02/04/2025 text/html Generic HPI TemplateReported by Patient YESSENIA CHAKRABORTY MD [address], [place], [address], [place] [facility] 02/04/2025 12:15:49 OBGyn Episode Ob Episode Information Episode Created Date Number of Fetuses Patient Bloodtype Patient rh Status Prepregnancy Weight lbs Domestic Partner Domestic Partner Phone Father Name Convention Services Manager Status 08/28/19 25 1 O Positive 229.6 Oscar OPEN Fetus Data First Name Last Name Admitted to NICU Weight (g) Sex Living Outcome Pediatric Complications Fetus ID Race Codes Race Delivery Type [id number] Problems Problem Notes Problem Name Start Date End Date Resolution Snomed Code Not e Past history of section 08/30/2024 [id number] x3, repeat Conrado Calculation Initial Conrado Date Initial Exam Date Initial Exam Provider Initial Ultrasound Date Last Menstrual Period Date Ultra Sound Weeks Gestation 03/06/2025 08/27/2024 [email or web address] 08/23/2024 12 Eighteen To Twenty Week Conrado [...] Type Weight in lbs Pre/Post Dialysis Refused 229.454746307826 BP Diastolic BP Location Tested BP Systolic BP Type 85 L arm 123 sitting Fetus Heart Rate Present A 153 Fetus Movement Comments Patient presents to [facility]. Hx of c section x3, [...] Weight in lbs Pre/Post Dialysis Refused Weight 229.111169256453 BP Diastolic BP Location Tested BP Systolic [...] Weight in lbs Pre/Post Dialysis Refused Weight 232.3703453150 BP Diastolic BP Location Tested BP Systolic [...] Type Weight in lbs Pre/Post Dialysis Refused 237.968084481321 BP Diastolic BP Location Tested BP Systolic [...] Type Weight in lbs Pre/Post Dialysis Refused 242.074644346355 BP Diastolic BP Location Tested BP Systolic [...] Weight in lbs Pre/Post Dialysis Refused Weight 244.205207964330 BP Diastolic BP Location Tested BP Systolic [...] Type Weight in lbs Pre/Post Dialysis Refused 246.846079394669 BP Diastolic BP Location Tested BP Systolic [...] Weight in lbs Pre/Post Dialysis Refused Weight 205.830496683643 BP Diastolic BP Location Tested BP Systolic [...] Weight in lbs Pre/Post Dialysis Refused Weight 254.195119720785 BP Diastolic BP Location Tested BP Systolic BP Type 70 L arm 139 sitting Fetus Heart Rate Present A 140 Fetus Movement A Yes Comments Was seen in the ER Tuesday for pelvic pain. Was told she had Dickson Joyce contractions. Stopped when she went to the hospital. No further episodes of contractions. No bleeding or LOF. Will start testing for obesity next week. RTC 1 week. Flowsheet Date 02/11/2025 Charles Score Blood Edema Fundus Height Fundus Units Glucose Ketones Leukocytes Nitrite Labor Signs Protein Cervic Dilation Cervic Effacement Cervic Station Type Weight in lbs Pre/Post Dialysis Refused 254.625887662880 BP Diastolic BP Location Tested BP Systolic [...] Weight in lbs Pre/Post Dialysis Refused Weight 256.988679655851 BP Diastolic BP Location Tested BP Systolic [...] Estim ated Date of Delivery false Thalassemia (Greenlandic, Portuguese, Mediterranean, Or Background): MCV < 80 false Neural Tube Defect (Meningomyelocele, Spina Bifi da, Or Anencephaly) false Congenital Heart Defect false Down Syndrome false Douglas-Sachs (eg, Bahai, Cajun, Mongolian-[place]) f alse Ned Disease false Sickle Cell [...]
--- OUTSIDE RECORDS SUMMARY | 2025-02-23 21:29 | XMS_ITS | Data Portability ---
Author Organization [facility] [place] Address [address] [place] [address] Assessment Encounter Date Assessment Date Assessment LastModified [...] Abnormal Flag Note LastModifiedBy Organization Detail LastModifiedTime 01/03/2001/02/2025 GTT - ANDREA CHRISANSLEY Weinberg, ACOG OB glucose, 1 hour screen 99 mg/dL 70-135 Not Available [facility] (Lab) [address], [place], [address], 01/03/2025 13:30:02 01/03/20 25 01/02/2025 HIV 1/2 ANTIG EN/AN TIBOD Y, REFLE X CONFI RMATI ON HIV antigen/anti body Nonrea ctive nonrea ctive HIV-1 antig en and HIV-1 /HIV- 2 antib odies were not detec piedad. No labor atory evide nce of HIV infec tion. Not Available [facility] (Lab) [address], [place], [address], 01/03/2025 13:30:03 01/03/20 25 01/02/2025 HEMAT OCRIT (HCT) HCT 33.9 % (based on docume nted legal sex) 34.0-4 5.0 low Not Available [facility] (Lab) [address], [place], [address], 01/03/2025 13:30:04 01/03/20 25 01/02/2025 HEMOG LOBIN (HGB) HGB 10.8 g/dL (based on docume nted legal sex) 11.6-1 5.4 low Not Available [facility] (Lab) [address], [place], [address], 01/03/2025 13:30:05 01/03/20 25 01/02/2025 RPR SCREE N, REFLE X TITER /CONF IRMAT ION RPR qualitative Nonrea ctive nonrea ctive Not Available [facility] (Lab) [address], [place], [address], 01/03/2025 13:30:06 01/03/20 25 01/02/2025 US, adriel beckett w-up No observ ation record ed. [email or web address] [place] [address], [place], [address], 01/02/2025 18:27:04 01/03/20 25 01/02/2025 , adriel beckett w-up No observ ation record ed. [email or web address] [address], [place], [address], 01/28/2025 11:17:52 02/03/20 25 02/02/2025 imagi ng/di agnos tic resul t No observ ation record ed. [facility] [address], [place], [address], 02/18/2025 04:05:20 Result Notes None recorded. Problems Name Problem SNOMED Code Status Onset Date Resolution Date Notes Provider Name and Address Organization Details Recorded Time Cystic fibrosis 130859068 Completed Carrier Sandy Sales CNM [address], [place], [address], [facility] 4 14:15:16 Seizure disorder 772205200 Completed childhoo d, not currentl y on meds Sandy Sales CNM [address], [place], [address], [facility] 4 14:15:16 Deliveri es by [id number] Completed repeat Sandy Sales CNM [address], [place], [address], [facility] 4 14:15:16 Pregnanc y 73862711 Completed 202309/29/2023 CHAR infante, [facility] 5 11:35:59 Seizure disorder 687988140 Active 2024 Jennifer infante, [facility] 5 12:23:46 Pregnanc y 57014049 Active 2024 CHAR Watkins null, [facility] 5 11:35:59 Past pregnanc y history of section 177341234 Active 2024 x3, repeat YESSENIA CHAKRABORTY MD [address], [place], [address], [facility] 5 16:56:42 Problem Notes None recorded. Procedures Surgical History Date Name Laterality Status Provider Name and Address Organization Details Recorded Time 5 Date of Last Pap Smear completed Jennifer Song [facility] 07/18/2024 12:21:36 4 SECTION (SURG) completed Michelle Georges [facility] 09/26/2023 14:01:[address] [facility] 04/19/2023 14:15:[address] [facility] 02/15/2023 15:59:[address] [facility] 02/15/2023 15:59:40 Imaging Results None [...] Not Available Vitals Date Recorded Body weight Body mass index (BMI) Body height Systolic And Diastolic Provider Name and Address Organization Details Last Updated DateTime 01/18/2025 514845.72 302 g 42.2 kg/m2 162.56 cm 123/64 mm[Hg] Meli Brooks [facility] 01/18/2025 14:11:08 Date Recorded Body height Body mass index (BMI) Body weight Systolic And Diastolic Provider Name and Address Organization Details Last Updated DateTime 02/01/2025 162.56 cm 35.2 kg/m2 33345.44 g 110/65 mm[Hg] CHACHA [facility] 02/01/2025 12:09:06 Date Recorded Body height Body mass index (BMI) Body weight Systolic And Diastolic Provider Name and Address Organization Details Last Updated DateTime 02/04/2025 162.56 cm 43.6 kg/m2 750210.46 g 139/70 mm[Hg] CHACHA KENN [facility] 02/04/2025 11:56:21 Date Recorded Body weight Systolic And Diastolic Provider Name and Address Organization Details Last Updated DateTime 02/11/2025 014616.05413 g 119/71 mm[Hg] Jaennie Blaise [facility] 02/11/2025 12:11:47 Date Recorded Body height Body mass index (BMI) Body weight Systolic And Diastolic Provider Name and Address Organization Details Last Updated DateTime 02/18/2025 162.56 cm 43.9 kg/m2 795552.65 g 119/74 mm[Hg] CHACHA KENN [facility] 02/18/2025 12:02:49 Social History Question Answer Notes LastModified by Organizat ion Details LastModified Time Tobacco Smoking Status Former Smoker Jennifer infante, [facility] 07/18/2024 12:23:04 If You Are , What Was Your Level Of Alcohol Consumption Prior To ? Occasional [email or web address] Information not available 07/18/2024 Are You Blind [...] Or The Highest Degree You Have Received? [id number] Information not available 05/17/2023 Are There Any [...] Have Difficulty Walking Or Climbing Stairs? No [email or web address] Information not available 08/01/2023 Sex: Unknown Functional Status Question Answer Note LastModified by [employer] ion Details LastModified Time Do you use any illicit or recreational drugs? No Information not available 05/17/2023 Do you or have you ever used any other forms of tobacco or nicotine? Yes [email or web address] Information not available 06/27/2024 What is your level of alcohol consumption? None Information not available 05/17/2023 Are you able to walk independently without assistance or assistive devices? [email or web address] Information not available 05/17/2023 Are you able to care for yourself independently? Yes [email or web address] Information not available 08/01/2023 Do you have difficulty dressing, bathing, grooming, or toileting? No [email or web address] Information not available 08/01/2023 Do you or have you ever used e-cigarettes or vape? Current user of electronic cigarettes [email or web address] Information not available 06/27/2024 What is your exercise level? None Information not available 05/17/2023 Mental Status Question Answer Note LastModified by Organization D etails LastModified Time Do you feel stressed (tense, restless, nervous, or anxious, or unable to sleep at night)? [email or web address] Information not available 05/17/2023 Family History Relationship [...] 0 11/21/2024 10:53:46 Medical History Condition Response Other N Blood Transfusion N Dermatologic Disorders N Gestational Diabetes N Anxiety Disorder N Autoimmune disease N Arthritis N Polyps N Infertility N Acid Reflux (GERD) N Cancer N Varicosities N Stroke N Neurologic/Epilepsy Y Fibromyalgia N Headaches N Kidney Disease N Heart Problems N Kidney or Bladder Problems N Eating Disorder N Art (IVF or FET) N Hepatitis/Liver Disease N No Past Medical History N Urinary Tract Infection N Asthma N Trauma/Violence N Thrombophilias N Allergies (Food, seasonal, environmental ) N Breast Cancer N Drug/Latex Allergies/Reactions N Lung Disease N Defects or Inherited Disease N Breast Problem N Hematologic disorders N Anesthesia Complications N History of STI N Deep Vein Thrombosis N Polycystic ovary syndrome N History of abnormal pap N Endometriosis N High Cholesterol N Thyroid Problems N GI Problems N Anemia N Psychiatric Illness N Ovarian Cancer N Diabetes N Pulmonary (TB, Asthma) N Eczema N Abuse/Domestic Violence N Depression/ depression N Heart Disease N Pre-Eclampsia N Hypertension N Osteoporosis N Gynecological History Statement/Question Response Date of [...] ICD10 Code Diagnosis IMO Codes Diagnosis Note [id number] Daren [place] MD [place] [address] [address] 02/15/2023 15:06:07 02/15/2023 16:25:57 [id number] YESSENIA CHAKRABORTY MD [place] [address],[place] [address] 02/15/2023 15:13:03 02/15/2023 16:51:25 test positive 358467038 Z32.01 1. Exam today within normal limits.2. Ultrasound today confirms GA and viability. EDC . GC/Clamydi a testing done: will f/u as indicated. 4. ACOG guidelines and plan of care for reviewed with patient. All questions answered.5 . Return to office at 12 weeks for new OB visit6. Will need new OB labs at next visit.7. Genetic screening: desires. Seizure disorder 8277344 02 G40.909 - no meds, no seizures since childhood Previous u terine surgical scar 919721396 Z98.891 - prior c section x2- desires [facility] [id number] YESSENIA CHAKRABORTY MD [place] [address] [address] 03/22/2023 12:40:01 03/26/2023 10:40:29 screening 420175342 Z36.0 Genetic in vestigation procedure 15505202 Z31.430 Routine an tenatal care 682051456 Z34.90 [id number] Daren [place] MD [place] [address] [address] 03/24/2023 15:08:03 03/24/2023 16:31:19 screening 812796896 Z36.82 Z3A.12 Z36.87 [id number] YESSENIA CHAKRABORTY MD [place] [address],[place] [address] 04/19/2023 13:44:32 04/19/2023 14:46:36 Routine care 716992488 Z34.90 [id number] Daren [place] MD [place] [address] [address] 05/17/2023 14:42:27 05/17/2023 15:47:57 screening for malformation 762395663 Z36.3 Z3A.20 [id number] YESSENIA CHAKRABORTY MD [place] [address] [address] 05/17/2023 14:42:44 05/17/2023 16:25:48 Dizziness 415622268 R42 Vaginitis 88442983 N76.0 Gestation period, 20 weeks 77836333 Z3A.20 [id number] Daren [place] MD [place] [address] [address] 06/08/2023 13:34:52 06/08/2023 13:56:38 Medical examination for suspected condition 735400913 Z03.72 Z3A.23 [id number] MD Jelani DAMON [address] [address] 06/20/2023 15:59:25 06/27/2023 05:51:35 Routine care 781797874 Z34.90 [id number] MD Jelani DAMON [address],[place] [address] 07/13/2023 14:01:29 07/13/2023 14:33:55 Routine care 449438704 Z34.90 [id number] MD Jelani Jorge [address],[place] [address] 08/01/2023 16:54:40 08/01/2023 17:13:56 Routine care 238272874 Z34.83 [id number] MD Jelani Jorge [address],[place] [address] 08/22/2023 10:41:47 08/22/2023 11:38:07 Cramp in lower limb 141480846 R25.2 Routine an tenatal care 495245891 Z34.83 [id number] YESSENIA CHAKRABORTY MD [place] [address],[place] [address] 09/06/2023 13:55:16 09/06/2023 14:38:55 Uterine scar from previous surgery affecting 07566439 O34.29 Gestation period, 36 weeks 99429899 Z3A.36 [id number] [facility] [address] [address] 09/16/2023 13:52:47 09/16/2023 14:19:54 Routine care 695477078 Z34.93 Gestation period, 37 weeks 00308931 Z3A.37 continue vitamin [id number] YESSENIA CHAKRABORTY MD [place] [address],[place] [address] 09/23/2023 12:31:37 09/23/2023 13:08:44 Past history of section 193305761 Z98.890 - c section scheduled 09/25 Gestation period, 38 weeks 07370560 Z3A.38 - continue PNV [id number] YESSENIA CHAKRABORTY MD [place] [address],[place] [address] 10/07/2023 12:05:34 10/07/2023 12:58:57 anxiety 2256530657 4673226 O99.345 - EPDS 4- patient feeling more overwhelme d and anxious; mood extremely labile- discussed baby blues vs PPD/PPA- patient desires medical management with sertraline - mood check at 1m PP visit care 91965834 8 Z39.2 S/p c section on . Incision well-heale d without any signs of infection2 . RTC 4wks for post-partu m check [id number] YESSENIA CHAKRABORTY MD [place] [address],[place] [address] 11/02/2023 15:35:16 11/02/2023 16:24:48 care 683034594 Z39.2 S/p RLTCS 4 weeks ago here today for a visit.1. Patient recovering well2. Plans to continue formula feeding3. May be interested in Nexplanon for contracept ion at this time. Risks, benefits, and alternativ es reviewed with the patient4. Patient instructed to follow up in 6 months for well woman exam unless need arises prior [id number] DENIS Benavides [place] [address],[place] [address] 06/27/2024 14:06:25 06/27/2024 15:28:46 Urine test positive 737789290 Z32.01 71596206 UPT (+)discuss ed with patient, bhcg orderedenc ouraged daily PNV starting now, precaution s reviewed, questions answeredwi ll have OB dept reach out to pt with bhcg result and schedule next appointmen ts as appropriat e Time spent in visit is a total of 25 mins with at least 50% of visit consisting of counseling and review of plan of care. [id number] Daren Living[place] MD [place] [address],[place] [address] 07/18/2024 11:35:03 07/18/2024 11:56:42 screening 661515740 Z36.87 Z3A.01 3234039581 [id number] [facility] [address],[place] [address] 07/18/2024 11:35:42 07/18/2024 13:33:32 Gynecologic examination 63507385 Z01.419 Z11.3 Z11.8 pap collectedp nv dailyf/u 12 week new ob and first look with dr. chakraborty Amenorrhea 21741279 N91. 2 44569 Nausea 511609657 R11.0 98974 [id number] YESSENIA CHAKRABORTY MD [place] [address],[place] [address] 08/23/2024 11:35:20 08/23/2024 12:38:28 screening 473308160 Z36.82 Z3A.12 4137375930 [id number] MD Jelani DAMON [address],[place] [address] 08/29/2024 12:00:22 08/31/2024 01:31:45 Past history of section 879513537 Z98.629 0397031 - x3- plan to repeat Gestation period, 13 weeks 61710203 Z3A.13 0756117 698003 MD Jelani DAMON [address],[place] [address] 09/28/2024 12:49:10 09/28/2024 13:33:58 Past history of section 097108550 Z98.891 426858 - x3- plan to repeat Gestation period, 17 weeks 94412474 Z3A.17 1737964 - continue PNV [id number] MD Jelani DAMON [address],[place] [address] 10/22/2024 10:55:01 10/22/2024 12:05:17 screening for malformation 393933767 Z36.3 Z3A.20 3428704683 780422 MD Jelani DAMON [address],[place] [address] 10/22/2024 10:55:13 10/22/2024 12:39:55 Past history of section 451546999 Z98.891 61141606 - x3- plan to repeat Gestation period, 20 weeks 56328104 Z3A.20 1942137 - continue PNV [id number] MD Jelani DAMON [address],[place] [address] 11/21/2024 10:53:26 11/21/2024 11:43:42 anatomy study 669074426 Z36.2 Z3A.25 3530849545 782681 MD Jelani [place]ON [address],[place] [address] 11/21/2024 10:53:43 11/21/2024 14:57:48 Gestation period, 25 weeks 14763838 Z3A.25 0671300 Past pregn logan history of section 349417286 Z98.891 351062 - x3- plan to repeat [id number] MD Jelani DAMON [address],[place] [address] 12/19/2024 11:57:38 12/19/2024 12:53:20 Past history of section 103295331 Z98.891 177285 - x3- plan to repeat screening 2437 26098 Z36.89 Gestation period, 29 weeks 79099178 Z3A.29 0591864 - continue PNV [id number] MD Jelani [place]ON [address],[place] [address] 01/02/2025 15:56:45 01/02/2025 16:40:41 Uterine size for dates discrepancy 761797332 O26.843 Z3A.31 9815610 [id number] MD Jelani DAMON [address] [address] 01/02/2025 16:26:38 01/02/2025 17:24:21 Past history of section 166343108 Z98.891 970075 - x3- plan to repeat Gestation period, 31 weeks 07410666 Z3A.31 1389612 - continue PNV [id number] MD Jelani [place] [address],[place] [address] 01/18/2025 13:59:43 01/18/2025 14:49:41 Past history of section 764960908 Z98.891 626271 - x3- plan to repeat, scheduled 03/04/25 Gestation period, 33 weeks 51556776 Z3A.33 8058190 - continue PNV 562152 MD Jelani [place] [address],[place] [address] 02/01/2025 11:45:08 02/01/2025 13:33:51 Past history of section 362785596 Z98.891 021678 - x3- plan to repeat, scheduled 03/04/25 Gestation period, 35 weeks 67777175 Z3A.35 2753400 - continue PNV 155747 MD Jelani [place] [address] [address] 02/04/2025 11:46:42 02/04/2025 12:21:34 Past history of section 903755312 Z98.891 905394 - x3- plan to repeat, scheduled 03/04/25 Gestation period, 35 weeks 33064698 Z3A.35 6514263 - continue PNV 437215 Daren [place] MD [place] [address],[facility] [address] 02/11/2025 11:11:50 02/11/2025 12:32:07 care status 217978823 Z34.83 77395563 227571 YESSENIA CHAKRABORTY MD [place] [address],[facility] [place] [address] 02/18/2025 11:56:05 02/18/2025 12:21:27 Past history of section 467120810 Z98.891 120317 - x3- plan to repeat, scheduled 03/04/25 Gestation period, 37 weeks 88188494 Z3A.37 9496277 - continue PNV Health Concerns Section Related Observation LastModified by Organization Detai ls LastModified Time None Recorded Concern Status LastModified by Organization Details LastModified Time None Recorded Advance Directives Directive None Recorded Payers Insurance Date Sequence Insurance Name Policy Number Policy Beck Covered Member ID Beck Member ID Guarantor Name 02/16/2025 1 [facility] (MEDICAID HMO) [id number] Sriram Ghosh [id number] Sriram Ghosh Notes Date Note Type Note Provider Name and Address Organization Details Recorded Time 01/18/2025 text/html Generic HPI TemplateReported by Patient YESSENIA CHAKRABORTY MD [address], [place], [address], [facility] 01/18/2025 14:43:15 02/01/2025 text/html Generic HPI TemplateReported by Patient YESSENIA CHAKRABORTY MD [address], [place], [address], [facility] 02/01/2025 12:44:46 02/04/2025 text/html Generic HPI TemplateReported by Patient YESSENIA CHAKRABORTY MD [address], [place], [address], [facility] 02/04/2025 12:15:49 02/11/2025 text/html Generic HPI TemplateReported by Patient Daren [place] MD [address], [place], [address], [facility] 02/11/2025 12:27:38 02/18/2025 text/html Generic HPI TemplateReported by Patient YESSENIA CHAKRABORTY MD [address], [place], [address], [facility] 02/18/2025 12:20:45 OBGyn Episode Ob Episode Information Episode Created Date Number of Fetuses Patient Bloodtype Patient rh Status Prepregnancy Weight lbs Domestic Partner Domestic Partner Phone Father Name Manufacturer Agent Status 02/16/20 23 1 CLOSED Fetus Data First Name Last Name Admitted to NICU Weight (g) Sex Living Outcome Pediatric Complications Fetus ID Race Codes Race Delivery Type 3656.85 8704 F Full Term [id number] Primary Conrado Calculation Initial Conrado Date Initial [...] Domestic Partner Domestic Partner Phone Father Name Manufacturer Agent Status 08/28/19 25 1 O Positive 229.6 Oscar OPEN Fetus Data First Name Last Name Admitted to NICU Weight (g) Sex Living Outcome Pediatric Complications Fetus ID Race Codes Race Delivery Type [id number] Problems Problem Notes Problem Name Start Date End Date Resolution Snomed Code Not e Past history of section 08/30/2024 039896260 x3, repeat Conrado Calculation Initial Conrado Date Initial Exam Date Initial Exam Provider Initial Ultrasound Date Last Menstrual Period Date Ultra Sound Weeks Gestation 03/06/2025 08/27/2024 [id number] 08/23/2024 12 Eighteen To Twenty Week Conrado [...] Type Weight in lbs Pre/Post Dialysis Refused 229.437191284077 BP Diastolic BP Location Tested BP Systolic BP Type 85 L arm 123 sitting Fetus Heart Rate Present A 153 Fetus Movement Comments Patient presents to [facility] care. Hx of c section [...] Weight in lbs Pre/Post Dialysis Refused Weight 229.260006635848 BP Diastolic BP Location Tested BP Systolic [...] Weight in lbs Pre/Post Dialysis Refused Weight 232.8359850845 BP Diastolic BP Location Tested BP Systolic [...] Type Weight in lbs Pre/Post Dialysis Refused 237.906230278290 BP Diastolic BP Location Tested BP Systolic [...] Type Weight in lbs Pre/Post Dialysis Refused 242.851142225212 BP Diastolic BP Location Tested BP Systolic [...] Weight in lbs Pre/Post Dialysis Refused Weight 244.549962519099 BP Diastolic BP Location Tested BP Systolic [...] Type Weight in lbs Pre/Post Dialysis Refused 246.238716552705 BP Diastolic BP Location Tested BP Systolic [...] Weight in lbs Pre/Post Dialysis Refused Weight 205.587092621723 BP Diastolic BP Location Tested BP Systolic [...] Weight in lbs Pre/Post Dialysis Refused Weight 254.198851570342 BP Diastolic BP Location Tested BP Systolic BP Type 70 L arm 139 sitting Fetus Heart Rate Present A 140 Fetus Movement A Yes Comments Was seen in the ER Tuesday for pelvic pain. Was told she had [place] Joyce contractions. Stopped when she went to the hospital. No further episodes of contractions. No bleeding or LOF. Will start testing for obesity next week. RTC 1 week. Flowsheet Date 02/11/2025 Charles Score Blood Edema Fundus Height Fundus Units Glucose Ketones Leukocytes Nitrite Labor Signs Protein Cervic Dilation Cervic Effacement Cervic Station Type Weight in lbs Pre/Post Dialysis Refused 254.392765234890 BP Diastolic BP Location Tested BP Systolic [...] Weight in lbs Pre/Post Dialysis Refused Weight 256.969007957273 BP Diastolic BP Location Tested BP Systolic [...] Estim ated Date of Delivery false Thalassemia (Slovak, Montenegrin, Mediterranean, Or Background): MCV < 80 false Neural Tube Defect (Meningomyelocele, Spina Bifi da, Or Anencephaly) false Congenital Heart Defect false Down Syndrome false Douglas-Sachs (eg, Baptist, Cajun, Croatian-Tucker) f alse Ned Disease false Sickle Cell [...] Domestic Partner Domestic Partner Phone Father Name Manufacturer Agent Status 03/22/19 24 1 O Positive 189.6 CLOSED Fetus Data First Name Last Name Admitted to NICU Weight (g) Sex Living Outcome Pediatric Complications Fetus ID Race Codes Race Delivery Type 3486.98 85 F true Full Term 11265 Repeat Problems Problem Notes NIPT NL XX Problem Name Start Date End Date Resolution Snomed Code Not e Cystic fibrosis 851277094 Yen ier Seizure disorder 342000122 chi ldhood, not currently on meds Deliveries by repeat Conrado Calculation Initial Conrado Date Initial [...] Date Ultra Sound Latest Days Gestation 0 03/22/2023 10/02/19 24 0 Pre- Flowsheet Flowsheet Date 03/22/2023 Charles Score Blood Edema Fundus Height Fundus Units Glucose Ketones Leukocytes Nitrite Labor Signs Protein Cervic Dilation Cervic Effacement Cervic Station 12 Type Weight in lbs Pre/Post Dialysis Refused Weight 188.122830983974 BP Diastolic BP Location Tested BP Systolic BP Type 73 114 Fetus Heart Rate Present Fetus Movement Comments Presents to establish prenat al care. uncomplicated thus far. Nausea improved. No [...] Weight in lbs Pre/Post Dialysis Refused Weight 195.359012832758 BP Diastolic BP Location Tested BP Systolic [...] Weight in lbs Pre/Post Dialysis Refused Weight 204.350977540772 BP Diastolic BP Location Tested BP Systolic [...] Weight in lbs Pre/Post Dialysis Refused Weight 214.478434430538 BP Diastolic BP Location Tested BP Systolic [...] Weight in lbs Pre/Post Dialysis Refused Weight 221.080985405290 BP Diastolic BP Location Tested BP Systolic BP Type 70 109 Fetus Heart Rate Present A 140 Fetus Movement A Yes Comments Going to [facility] o n [facility]. Discussed travel precautions. Good movement. No cramping or bleeding. GCT and labs today. RTC 2 weeks. Flowsheet Date 08/01/2023 Charles Score Blood Edema Fundus Height Fundus Units Glucose Ketones Leukocytes Nitrite Labor Signs Protein Cervic Dilation Cervic Effacement Cervic Station neg trace trace Type Weight in lbs Pre/Post Dialysis Refused Weight 231.645483942662 BP Diastolic BP Location Tested BP Systolic BP Type 72 L arm 130 sitting Fetus Heart Rate Present Fetus Movement A Yes Comments Patient c/o slight swelling in feet, along with some pains and [place] Joyce, routine care Flowsheet Date 08/22/2023 Charles Score Blood Edema Fundus Height Fundus Units Glucose Ketones Leukocytes Nitrite Labor Signs Protein Cervic Dilation Cervic Effacement Cervic Station trace 34 Type Weight in lbs Pre/Post Dialysis Refused Weight 234.405685989162 BP Diastolic BP Location Tested BP Systolic [...] Weight in lbs Pre/Post Dialysis Refused Weight 239.421282557790 BP Diastolic BP Location Tested BP Systolic [...] Weight in lbs Pre/Post Dialysis Refused Weight 244.458410236946 BP Diastolic BP Location Tested BP Systolic [...] Weight in lbs Pre/Post Dialysis Refused Weight 246.462438679930 BP Diastolic BP Location Tested BP Systolic [...] Estim ated Date of Delivery false Thalassemia (Slovak, Montenegrin, Mediterranean, Or Background): MCV < 80 false Neural Tube Defect (Meningomyelocele, Spina Bifi da, Or Anencephaly) false Congenital Heart Defect false Down Syndrome false Douglas-Sachs (eg, Baptist, Cajun, Croatian-Tucker) f alse Ned Disease false Sickle Cell Disease Or Trait () false Hemophilia Or Other Blood Disorders false Muscular Dystrophy false Cystic Fibrosis false [place]'s Chorea false Intellectual Disability/Autism false If Yes, [...] Domestic Partner Domestic Partner Phone Father Name Manufacturer Agent Status 02/16/20 23 1 CLOSED Fetus Data First Name Last Name Admitted to NICU Weight (g) Sex Living Outcome Pediatric Complications Fetus ID Race Codes Race Delivery Type 2919.77 1704 M Full Term 07471 Repeat Conrado Calculation Initial Conrado Date Initial [...]
--- OUTSIDE RECORDS SUMMARY | 2025-02-23 21:29 | XMS_ITS | Continuity of Care Document ---
Author Organization [facility] [place] Address [address] [place] [address] Assessment No assessment recorded. Plan of Treatment [...] Not available Not available Not available Lab RPR (rapid plasma reagin), serum 2024 025 [facility] (Lab), [address], [place], [address], 01/03/2025 13:30:06 glucose tolerance test, gestation al panel 2024 025 [facility] (Lab), [address], [place], [address], 01/03/2025 13:30:02 hematocri t, blood 2024 025 [facility] (Lab), [address], [place], [address], 01/03/2025 13:30:04 hemoglobi n (Hb), blood 2024 025 [facility] (Lab), [address], [place], [address], 01/03/2025 13:30:05 HIV 1+2 AB + HIV 1 p24 Ag, qualitati ve immunoass ay, serum 2024 025 [facility] (Lab), [address], [place], [address], 01/03/2025 13:30:03 Referral None recorded. Procedures None recorded. Surgeries None recorded. Imaging None recorded. Medication Orders None recorded. Patient TargetsNo targets recorded. Patient InstructionsNo instructions recorded. Reason for Referral None Reported. Results Created Date Observation Date Name Description Value Unit Range Abnormal Flag Note LastModifiedBy Organization Detail LastModifiedTime 08/30/1908/29/2024 [UNIT Y] ANEUP LOIDY NIPT fraction 3.8% normal Not Available [facility] [address], [place], [address], 08/29/2024 17:09:49 08/30/19 25 08/29/2024 [UNIT Y] ANEUP LOIDY NIPT 22Q11.2 microdeletio n LOW RISK <1 in 10,000 normal Not Available [facility] [address], [place], [address], 08/29/2024 17:09:49 08/30/19 25 08/29/2024 [UNIT Y] ANEUP LOIDY NIPT sex chromosome aneuploidy NOT DETECT ED normal Not Available [facility] [address], [place], [address], 08/29/2024 17:09:49 08/30/19 25 08/29/2024 [UNIT Y] ANEUP LOIDY NIPT monosomy X LOW RISK <1 in 10,000 normal Not Available [facility] [address], [place], [address], 08/29/2024 17:09:49 08/30/19 25 08/29/2024 [UNIT Y] ANEUP LOIDY NIPT trisomy 13 LOW RISK <1 in 10,000 normal Not Available [facility] [address] [place], [address], 08/29/2024 17:09:49 08/30/19 25 08/29/2024 [UNIT Y] ANEUP LOIDY NIPT trisomy 18 LOW RISK <1 in 10,000 normal Not Available [facility] [address], [place], [address], 08/29/2024 17:09:49 08/30/19 25 08/29/2024 [UNIT Y] ANEUP LOIDY NIPT trisomy 21 LOW RISK <1 in 10,000 normal Not Available [facility] [address], [place], [address], 08/29/2024 17:09:49 08/30/19 25 08/29/2024 [UNIT Y] ANEUP LOIDY NIPT sex FEMALE normal Not Available [facility] [address], [place], [address], 08/29/2024 17:09:49 08/30/19 25 08/29/2024 [UNIT Y] ANEUP LOIDY NIPT gestation SINGLE TON normal Not Available [facility] [address], [place], [address], 08/29/2024 17:09:49 08/30/19 25 08/29/2024 [UNIT Y] ANEUP LOIDY NIPT for detailed report, see pdf See PDF normal Not Available [facility] [address], [place], [address], 08/29/2024 17:09:49 11/22/19 25 11/21/2024 CULTU RE: URINE result report SEE RESULT S BELOW Test: Cultu re: Urine Speci men Sourc e: Urine - Clean Catch Speci men Type: Urine Speci men Date: 2024 1309 Resul t Date: 2024 0251 Resul t Statu s: Final resul t Abnor mal: No Resul ting Lab: [facility] [address] [facility] [address] Tel: CULTU RE ----- ----- ----- --- No growt h in 1 day (dete ction level of 10,00 0 colon ies / ml.) Not Available [facility] (Lab) [address] [facility], [place], [address], 11/23/2024 03:57:03 11/22/19 25 11/21/2024 drug scree n, urine Cannabinoids : positi ve Not Available [facility] [address], [place], [address], 11/21/2024 12:00:41 01/03/20 25 01/02/2025 GTT - GESTA CHRIS L JOSEPH [place], ACOG OB glucose, 1 hour screen 99 mg/dL 70-135 Not Available [facility] (Lab) [address] [facility], [place], [address], 01/03/2025 13:30:02 01/03/20 25 01/02/2025 HIV 1/2 ANTIG EN/AN TIBOD Y, REFLE X CONFI RMATI ON HIV antigen/anti body Nonrea ctive nonrea ctive HIV-1 antig en and HIV-1 /HIV- 2 antib odies were not detec piedad. No labor atory evide nce of HIV infec tion. Not Available [facility] (Lab) [address] [facility], [place], [address], 01/03/2025 13:30:03 01/03/20 25 01/02/2025 HEMAT OCRIT (HCT) HCT 33.9 % (based on docume nted legal sex) 34.0-4 5.0 low Not Available [facility] (Lab) [address] [facility], [place], [address], 01/03/2025 13:30:04 01/03/20 25 01/02/2025 HEMOG LOBIN (HGB) HGB 10.8 g/dL (based on docume nted legal sex) 11.6-1 5.4 low Not Available [facility] (Lab) [address] [facility], [place], [address], 01/03/2025 13:30:05 01/03/20 25 01/02/2025 RPR SCREE N, REFLE X TITER /CONF IRMAT ION RPR qualitative Nonrea ctive nonrea ctive Not Available [facility] (Lab) [address] [facility], [place], [address], 01/03/2025 13:30:06 10/23/19 25 10/22/2024 US, obste tric, 2nd or 3rd trime ster No observ ation record ed. [email or web address] [facility] [address], [place], [address], 10/22/2024 18:24:10 10/23/19 25 10/22/2024 US, obste tric, 2nd or 3rd trime ster No observ ation record ed. [facility] [address], [place], [address], 10/22/2024 14:16:26 11/22/19 25 11/21/2024 US, obste tric, follo w-up No observ ation record ed. [email or web address] [facility] [address], [place], [address], 11/21/2024 18:34:46 11/22/19 25 11/21/2024 US, obste tric, follo w-up No observ ation record ed. [facility] [address], [place], [address], 11/21/2024 18:15:58 01/03/20 25 01/02/2025 US, obste tric, follo w-up No observ ation record ed. [email or web address] [facility] [address], [place], [address], 01/02/2025 18:27:04 01/03/20 25 01/02/2025 US, obste tric, follo w-up No observ ation record ed. [email or web address] [facility] [address], [place], [address], 01/28/2025 11:17:52 02/03/20 25 02/02/2025 imagi ng/di agnos tic resul t No observ ation record ed. [facility] [address], [place], [address], 02/18/2025 04:05:20 Result Notes None recorded. Problems Name Problem SNOMED Code Status Onset Date Resolution Date Notes Provider Name and Address Organization Details Recorded Time Cystic fibrosis 532054145 Completed Carrier Sandy Sales CNM [address], [place], [address], [facility] 4 14:15:16 Seizure disorder 615585727 Completed childhoo d, not currentl y on meds Sandy Sales CNM [address], [place], [address], [facility] 4 14:15:16 Deliveri es by [id number] Completed repeat Sandy Sales CNM [address], [place], [address], [facility] 4 14:15:16 Pregnanc y 00191540 Completed 202309/29/2023 CHAR infante, [facility] 5 11:35:59 Seizure disorder 169738436 Active 2024 Jennifer infante, [facility] 5 12:23:46 Pregnanc y 51536041 Active 2024 CHAR infante, [facility] 5 11:35:59 Past pregnanc y history of section 186097031 Active 2024 x3, repeat YESSENIA CHAKRABORTY MD [address], [place], [address], [facility] 5 16:56:42 Problem Notes None recorded. Procedures Surgical History Date Name Laterality Status Provider Name and Address Organization Details Recorded Time 5 Date of Last Pap Smear completed Jennifer Song [facility] 07/18/2024 12:21:36 4 SECTION (SURG) completed Michelle José Manuel [facility] 09/26/2023 14:01:00 4 [address] extraction [address] [facility] 04/19/2023 14:15:[address] [facility] 02/15/2023 15:59:[address] [facility] 02/15/2023 15:59:40 Imaging Results None recorded. [...] and Address Organization Details Last Updated DateTime 12/19/2024 405999.09158 g 120/70 mm[Hg] Meli Handy [facility] 12/19/2024 12:19:34 Social History Question Answer Notes LastModified by Organizat ion Details LastModified Time Tobacco Smoking Status Former Smoker Jennifer Duncan infante, [facility] 07/18/2024 12:23:04 If You Are , What Was Your Level Of Alcohol Consumption Prior To ? Occasional Information not available 07/18/2024 Are You Blind [...] Or The Highest Degree You Have Received? [id number] Information not available 05/17/2023 Are There Any [...] Have Difficulty Walking Or Climbing Stairs? No [email or web address] Information not available 08/01/2023 Sex: Unknown Functional Status Question Answer Note LastModified by Organizat ion Details LastModified Time Do you use any illicit or recreational drugs? No Information not available 05/17/2023 Do you or have you ever used any other forms of tobacco or nicotine? Yes [email or web address] Information not available 06/27/2024 What is your level of alcohol consumption? None Information not available 05/17/2023 Are you able to walk independently without assistance or assistive devices? [email or web address] Information not available 05/17/2023 Are you able to care for yourself independently? Yes [email or web address] Information not available 08/01/2023 Do you have difficulty dressing, bathing, grooming, or toileting? No Information not available 08/01/2023 Do you or have you ever used e-cigarettes or vape? Current user of electronic cigarettes [email or web address] Information not available 06/27/2024 What is your exercise level? None Information not available 05/17/2023 Mental Status Question Answer Note LastModified by Organization D etails LastModified Time Do you feel stressed (tense, restless, nervous, or anxious, or unable to sleep at night)? [id number] Information not available 05/17/2023 Family History Relationship [...] ICD10 Code Diagnosis IMO Codes Diagnosis Note [id number] YESSENIA CHAKRABORTY MD [facility] [address] [address] 11/21/2024 10:53:26 11/21/2024 11:43:42 anatomy study 097266854 Z36.2 Z3A.25 [id number] YESSENIA CHAKRABORTY MD [facility] [address] [address] 11/21/2024 10:53:43 11/21/2024 14:57:48 Gestation period, 25 weeks 64032725 Z3A.25 8385107 Past pregn logan history of section 820597051 Z98.891 252903 - x3- plan to repeat [id number] YESSENIA CHAKRABORTY MD [facility] [address] [address] 12/19/2024 11:57:38 12/19/2024 12:53:20 Past history of section 685475407 Z98.891 678609 - x3- plan to repeat screening 2437 60016 Z36.89 Gestation period, 29 weeks 90194916 Z3A.29 2027681 - continue [facility] Concerns Section Related Observation LastModified by Organization Detai ls LastModified Time None Recorded Concern Status LastModified by Organization Details LastModified Time None Recorded Payers Encounter Date Sequence Insurance Name Policy Number Policy Beck Covered Member ID Beck Member ID Guarantor Name 12/19/2024 1 [facility] (MEDICAID HMO) [id number] Sriram Ghosh [id number] Sriram Ghosh Notes Date Note Type Note Provider Name and Address Organization Details Recorded Time 12/19/2024 text/html Generic HPI TemplateReported by Patient YESSENIA CHAKRABORTY MD [address], [place], [address], [facility] 12/19/2024 12:52:59 OBGyn Episode Ob Episode Information Episode Created Date Number of Fetuses Patient Bloodtype Patient rh Status Prepregnancy Weight lbs Domestic Partner Domestic Partner Phone Father Name Ndt Inspector Status 08/28/19 25 1 O Positive 229.6 Oscar OPEN Fetus Data First Name Last Name Admitted to NICU Weight (g) Sex Living Outcome Pediatric Complications Fetus ID Race Codes Race Delivery Type 15900 Problems Problem Notes Problem Name Start Date End Date Resolution Snomed Code Not e Past history of section 08/30/2024 762465875 x3, repeat Conrado Calculation Initial Conrado Date Initial Exam Date Initial Exam Provider Initial Ultrasound Date Last Menstrual Period Date Ultra Sound Weeks Gestation 03/06/2025 08/27/2024 [email or web address] 08/23/2024 12 Eighteen To Twenty Week Conrado [...] Type Weight in lbs Pre/Post Dialysis Refused 229.593895987768 BP Diastolic BP Location Tested BP Systolic BP Type 85 L arm 123 sitting Fetus Heart Rate Present A 153 Fetus Movement Comments Patient presents to [facility] care. Hx of c section x3, [...] Weight in lbs Pre/Post Dialysis Refused Weight 229.921617605397 BP Diastolic BP Location Tested BP Systolic [...] Weight in lbs Pre/Post Dialysis Refused Weight 232.5785072376 BP Diastolic BP Location Tested BP Systolic [...] Type Weight in lbs Pre/Post Dialysis Refused 237.351891691997 BP Diastolic BP Location Tested BP Systolic [...] Type Weight in lbs Pre/Post Dialysis Refused 242.551527295359 BP Diastolic BP Location Tested BP Systolic [...] Weight in lbs Pre/Post Dialysis Refused Weight 244.556436305067 BP Diastolic BP Location Tested BP Systolic [...] Type Weight in lbs Pre/Post Dialysis Refused 246.125757006533 BP Diastolic BP Location Tested BP Systolic [...] Weight in lbs Pre/Post Dialysis Refused Weight 205.436618788822 BP Diastolic BP Location Tested BP Systolic [...] Weight in lbs Pre/Post Dialysis Refused Weight 254.362980983789 BP Diastolic BP Location Tested BP Systolic BP Type 70 L arm 139 sitting Fetus Heart Rate Present A 140 Fetus Movement A Yes Comments Was seen in the ER Tuesday for pelvic pain. Was told she had [place] contractions. Stopped when she went to the hospital. No further episodes of contractions. No bleeding or LOF. Will start testing for obesity next week. RTC 1 week. Flowsheet Date 02/11/2025 Charles Score Blood Edema Fundus Height Fundus Units Glucose Ketones Leukocytes Nitrite Labor Signs Protein Cervic Dilation Cervic Effacement Cervic Station Type Weight in lbs Pre/Post Dialysis Refused 254.774473936010 BP Diastolic BP Location Tested BP Systolic [...] Weight in lbs Pre/Post Dialysis Refused Weight 256.736600454775 BP Diastolic BP Location Tested BP Systolic [...] Estim ated Date of Delivery false Thalassemia (Kenyan, Mosotho, Mediterranean, Or Background): MCV < 80 false Neural Tube Defect (Meningomyelocele, Spina Bifi da, Or Anencephaly) false Congenital Heart Defect false Down Syndrome false Douglas-Sachs (eg, Congregation, Cajun, English-Mauritanian) f alse Ned Disease false Sickle Cell Disease Or Trait () false Hemophilia Or Other Blood Disorders false Muscular Dystrophy false Cystic Fibrosis false [place]'s Chorea false Intellectual Disability/Autism false Other Inherited [...]
--- OUTSIDE RECORDS SUMMARY | 2025-02-23 21:29 | XMS_ITS | Continuity of Care Document ---
Author Organization [facility] Address [address] [place] [address] [place] [address] Assessment No assessment recorded. Plan of Treatment [...] Not Available Mary Jo Barajas[address], [place], [address], 08/29/2024 17:09:49 08/30/19 25 08/29/2024 [UNIT Y] ANEUP LOIDY NIPT 22Q11.2 microdeletio n LOW RISK <1 in 10,000 normal Not Available [address], [place], [address], 08/29/2024 17:09:49 08/30/19 25 08/29/2024 [UNIT Y] ANEUP LOIDY NIPT sex chromosome aneuploidy NOT DETECT ED normal Not Available [facility] [address], [place], [address], 08/29/2024 17:09:49 08/30/19 25 08/29/2024 [UNIT Y] ANEUP LOIDY NIPT monosomy X LOW RISK <1 in 10,000 normal Not Available [facility] [address], [place], [address], 08/29/2024 17:09:49 08/30/19 25 08/29/2024 [UNIT Y] ANEUP LOIDY NIPT trisomy 13 LOW RISK <1 in 10,000 normal Not Available [facility] [address], [place], [address], 08/29/2024 17:09:49 08/30/19 25 08/29/2024 [UNIT Y] ANEUP LOIDY NIPT trisomy 18 LOW RISK <1 in 10,000 normal Not Available [facility] [address], [place], [address], 08/29/2024 17:09:49 08/30/19 25 08/29/2024 [UNIT Y] ANEUP LOIDY NIPT trisomy 21 LOW RISK <1 in 10,000 normal Not Available [facility] [address], [place], [address], 08/29/2024 17:09:49 08/30/19 25 08/29/2024 [UNIT Y] ANEUP LOIDY NIPT sex FEMALE normal Not Available [facility] [address], [place], [address], 08/29/2024 17:09:49 08/30/19 25 08/29/2024 [UNIT Y] ANEUP LOIDY NIPT gestation SINGLE TON normal Not Available [facility] [address], [place], [address], 08/29/2024 17:09:49 08/30/1908/29/2024 [UNIT Y] ANEUP LOIDY NIPT for detailed report, see pdf See PDF normal Not Available [facility] [address], [place], [address], 08/29/2024 17:09:49 11/22/1911/21/2024 CULTU RE: URINE result report SEE RESULT S BELOW Test: Cultu re: Urine Speci men Sourc e: Urine - Clean Catch Speci men Type: Urine Speci men Date: 2024 1309 Resul t Date: 2024 0251 Resul t Statu s: Final resul t Abnor mal: No Resul ting Lab: [facility] [address] [facility] [address] Tel: CULTU RE ----- ----- ----- --- No growt h in 1 day (dete ction level of 10,00 0 colon ies / ml.) Not Available [facility] (Lab) [address] [facility], [place], [address], 11/23/2024 03:57:03 11/22/19 25 11/21/2024 drug romi martinez, urine Cannabinoids : positi ve Not Available [facility] [address], [place], [address], 11/21/2024 12:00:41 01/03/20 25 01/02/2025 GTT - GESTA CHRIS Pablito Martinez, ACOG OB glucose, 1 hour screen 99 mg/dL 70-135 Not Available [facility] (Lab) [address] [facility], [place], [address], 01/03/2025 13:30:02 01/03/20 25 01/02/2025 HIV 1/2 ANTIG EN/AN TIBOD Y, REFLE X CONFI RMATI ON HIV antigen/anti body Nonrea ctive nonrea ctive HIV-1 antig en and HIV-1 /HIV- 2 antib odies were not detec piedad. No labor atory evide nce of HIV infec tion. Not Available [facility] (Lab) [address] [facility], [place], [address], 01/03/2025 13:30:03 01/03/20 25 01/02/2025 HEMAT OCRIT (HCT) HCT 33.9 % (based on docume nted legal sex) 34.0-4 5.0 low Not Available [facility] (Lab) [address] [facility], [place], [address], 01/03/2025 13:30:04 01/03/20 25 01/02/2025 HEMOG LOBIN (HGB) HGB 10.8 g/dL (based on docume nted legal sex) 11.6-1 5.4 low Not Available [facility] (Lab) [address] [facility], [place], [address], 01/03/2025 13:30:05 01/03/20 25 01/02/2025 RPR SCREE N, REFLE X TITER /CONF IRMAT ION RPR qualitative Nonrea ctive nonrea ctive Not Available [facility] (Lab) [address] [facility], [place], [address], 01/03/2025 13:30:06 10/23/19 25 10/22/2024 US, jean tric, 2nd or 3rd trime ster No observ ation record ed. [email or web address] [place] [address] [address], [place], [address], 10/22/2024 18:24:10 10/23/19 25 10/22/2024 US, obstminerva tric, 2nd or 3rd trime ster No observ ation record ed. [email or web address] [facility] [address], [place], [address], 10/22/2024 14:16:26 11/22/19 25 11/21/2024 US, jean caldwell, follo w-up No observ ation record ed. [facility] [address], [place], [address], 11/21/2024 18:34:46 11/22/19 25 11/21/2024 US, obste tric, follo w-up No observ ation record ed. [email or web address] [facility] [address], [place], [address], 11/21/2024 18:15:58 01/03/20 25 01/02/2025 US, obste tric, follo w-up No observ ation record ed. [email or web address] [facility] [address], [place], [address], 01/02/2025 18:27:04 01/03/20 25 01/02/2025 US, obste tric, follo w-up No observ ation record ed. [email or web address] [facility] [address], [place], [address], 01/28/2025 11:17:52 02/03/20 25 02/02/2025 imagi ng/di agnos tic resul t No observ ation record ed. [facility] [address], [place], [address], 02/18/2025 04:05:20 Result Notes None recorded. Problems Name Problem SNOMED Code Status Onset Date Resolution Date Notes Provider Name and Address Organization Details Recorded Time Cystic fibrosis 513169479 Completed Carrier Sandy Sales CNM [address], [place], [address], [place] [facility] 4 14:15:16 Seizure disorder 420353506 Completed childhoo d, not currentl y on meds Sandy Sales CNM [address], [place], [address], [place] [facility] 4 14:15:16 Deliveri es by [id number] Completed repeat Sandy Sales CNM [address], [place], [address], [facility] 4 14:15:16 Pregnanc y 07617375 Completed 202309/29/2023 CHAR June [facility], [facility] 5 11:35:59 Seizure disorder 459646903 Active 2024 Jennifer Song [facility], [facility] 5 12:23:46 Pregnanc y 62801125 Active 2024 CHARMeggan Watkins [facility], [facility] 5 11:35:59 Past pregnanc y history of section 634581685 Active 2024 x3, repeat YESSENIA CHAKRABORTY MD [address], [place], [address], [facility] 5 16:56:42 Problem Notes None recorded. Procedures Surgical History Date Name Laterality Status Provider Name and Address Organization Details Recorded Time 5 Date of Last Pap Smear completed Jennifer Song [facility] 07/18/2024 12:21:36 4 SECTION (SURG) completed Michelle Georges [facility] 09/26/2023 14:01:00 4 tooth extraction completed [facility] 04/19/2023 14:15:59 2 section completed [facility] 02/15/2023 15:59:55 8 section completed [facility] 02/15/2023 15:59:40 Imaging Results None [...] Updated DateTime 02/01/2025 162.56 cm 35.2 kg/m2 63609.44 g 110/65 mm[Hg] CHACHA HAWK [facility] 02/01/2025 12:09:06 Social History Question Answer Notes LastModified by Organizat ion Details LastModified Time Tobacco Smoking Status Former Smoker Jennifer infante, [facility] 07/18/2024 12:23:04 If You Are , What Was Your Level Of Alcohol Consumption Prior To ? Occasional [email or web address] Information not available 07/18/2024 Are You Blind [...] Or The Highest Degree You Have Received? [id number] Information not available 05/17/2023 Are There Any [...] Have Difficulty Walking Or Climbing Stairs? No [email or web address] Information not available 08/01/2023 Sex: Unknown Functional Status Question Answer Note LastModified by Organizat ion Details LastModified Time Do you use any illicit or recreational drugs? No Information not available 05/17/2023 Do you or have you ever used any other forms of tobacco or nicotine? Yes [email or web address] Information not available 06/27/2024 What is your level of alcohol consumption? None Information not available 05/17/2023 Are you able to walk independently without assistance or assistive devices? YESWOREST Information not available 05/17/2023 Are you able to care for yourself independently? Yes [email or web address] Information not available 08/01/2023 Do you have difficulty dressing, bathing, grooming, or toileting? No [email or web address] Information not available 08/01/2023 Do you or have you ever used e-cigarettes or vape? Current user of electronic cigarettes [email or web address] Information not available 06/27/2024 What is your exercise level? None Information not available 05/17/2023 Mental Status Question Answer Note LastModified by Organization D etails LastModified Time Do you feel stressed (tense, restless, nervous, or anxious, or unable to sleep at night)? [id number] Information not available 05/17/2023 Family History Relationship [...] ICD10 Code Diagnosis IMO Codes Diagnosis Note [id number] YESSENIA CHAKRABORTY MD [facility] [address] [address] 01/02/2025 15:56:45 01/02/2025 16:40:41 Uterine size for dates discrepancy 674410022 O26.843 Z3A.31 6122086 526800 YESSENIA CHAKRABORTY MD [facility] [address] [address] 01/02/2025 16:26:38 01/02/2025 17:24:21 Past history of section 668145464 Z98.891 058800 - x3- plan to repeat Gestation period, 31 weeks 84399907 Z3A.31 8773571 - continue PNV [id number] YESSENIA CHAKRABORTY MD [facility] [address],[place] [address] 01/18/2025 13:59:43 01/18/2025 14:49:41 Past history of section 448384792 Z98.891 783084 - x3- plan to repeat, scheduled 03/04/25 Gestation period, 33 weeks 69884026 Z3A.33 0373857 - continue PNV [id number] YESSENIA CHAKRABORTY MD [facility] [address],[place] [address] 02/01/2025 11:45:08 02/01/2025 13:33:51 Past history of section 404810981 Z98.891 856729 - x3- plan to repeat, scheduled 03/04/25 Gestation period, 35 weeks 33549984 Z3A.35 4443569 - continue PNV Health Concerns Section Related Observation LastModified by Organization Detai ls LastModified Time None Recorded Concern Status LastModified by Organization Details LastModified Time None Recorded Payers Encounter Date Sequence Insurance Name Policy Number Policy Beck Covered Member ID Beck Member ID Guarantor Name 02/01/2025 1 [facility] (MEDICAID HMO) [id number] Sriram Augie [id number] Sriram Ghosh Notes Date Note Type Note Provider Name and Address Organization Details Recorded Time 02/01/2025 text/html Generic HPI TemplateReported by Patient YESSENIA CHAKRABORTY MD [address], [place], [address], [facility] 02/01/2025 12:44:46 OBGyn Episode Ob Episode Information Episode Created Date Number of Fetuses Patient Bloodtype Patient rh Status Prepregnancy Weight lbs Domestic Partner Domestic Partner Phone Father Name Appeals Officer Status 08/28/19 25 1 O Positive 229.6 Oscar OPEN Fetus Data First Name Last Name Admitted to NICU Weight (g) Sex Living Outcome Pediatric Complications Fetus ID Race Codes Race Delivery Type [id number] Problems Problem Notes Problem Name Start Date End Date Resolution Snomed Code Not e Past history of section 08/30/2024 335375743 x3, repeat Conrado Calculation Initial Conrado Date Initial Exam Date Initial Exam Provider Initial Ultrasound Date Last Menstrual Period Date Ultra Sound Weeks Gestation 03/06/2025 08/27/2024 [email or web address] 08/23/2024 12 Eighteen To Twenty Week Conrado [...] Type Weight in lbs Pre/Post Dialysis Refused 229.002184820306 BP Diastolic BP Location Tested BP Systolic BP Type 85 L arm 123 sitting Fetus Heart Rate Present A 153 Fetus Movement Comments Patient presents to [facility]. Hx of c section x3, plan [...] Weight in lbs Pre/Post Dialysis Refused Weight 229.851267790645 BP Diastolic BP Location Tested BP Systolic [...] Weight in lbs Pre/Post Dialysis Refused Weight 232.9238165710 BP Diastolic BP Location Tested BP Systolic [...] Type Weight in lbs Pre/Post Dialysis Refused 237.712284467969 BP Diastolic BP Location Tested BP Systolic [...] Type Weight in lbs Pre/Post Dialysis Refused 242.765190722168 BP Diastolic BP Location Tested BP Systolic [...] Weight in lbs Pre/Post Dialysis Refused Weight 244.391872609610 BP Diastolic BP Location Tested BP Systolic [...] Type Weight in lbs Pre/Post Dialysis Refused 246.963525529629 BP Diastolic BP Location Tested BP Systolic [...] Weight in lbs Pre/Post Dialysis Refused Weight 205.529520434642 BP Diastolic BP Location Tested BP Systolic [...] Weight in lbs Pre/Post Dialysis Refused Weight 254.226996275915 BP Diastolic BP Location Tested BP Systolic BP Type 70 L arm 139 sitting Fetus Heart Rate Present A 140 Fetus Movement A Yes Comments Was seen in the ER Tuesday for pelvic pain. Was told she had [place] contractions. Stopped when she went to the hospital. No further episodes of contractions. No bleeding or LOF. Will start testing for obesity next week. RTC 1 week. Flowsheet Date 02/11/2025 Charles Score Blood Edema Fundus Height Fundus Units Glucose Ketones Leukocytes Nitrite Labor Signs Protein Cervic Dilation Cervic Effacement Cervic Station Type Weight in lbs Pre/Post Dialysis Refused 254.982860365764 BP Diastolic BP Location Tested BP Systolic [...] Weight in lbs Pre/Post Dialysis Refused Weight 256.964095948977 BP Diastolic BP Location Tested BP Systolic [...] Estim ated Date of Delivery false Thalassemia (Uruguayan, Kyrgyz, Mediterranean, Or Background): MCV < 80 false Neural Tube Defect (Meningomyelocele, Spina Bifi da, Or Anencephaly) false Congenital Heart Defect false Down Syndrome false Douglas-Sachs (eg, Christian, Cajun, Vietnamese-Malawian) f alse Ned Disease false Sickle Cell Disease Or Trait () false Hemophilia Or Other Blood Disorders false Muscular Dystrophy false Cystic Fibrosis false Sawyer's Chorea false Intellectual Disability/Autism false Other Inherited [...]
--- OUTSIDE RECORDS SUMMARY | 2025-02-23 21:29 | XMS_ITS | Continuity of Care Document ---
Author Organization [facility] Address [address] [place] [place] [address] Assessment No assessment recorded. Plan of Treatment [...] Not Available Mary Jo Barajas[address], [place], [address], 08/29/2024 17:09:49 08/30/19 25 08/29/2024 [UNIT Y] ANEUP LOIDY NIPT 22Q11.2 microdeletio n LOW RISK <1 in 10,000 normal Not Available [address], [place], [address], 08/29/2024 17:09:49 08/30/19 25 08/29/2024 [UNIT Y] ANEUP LOIDY NIPT sex chromosome aneuploidy NOT DETECT ED normal Not Available [facility] [address], [place], [address], 08/29/2024 17:09:49 08/30/19 25 08/29/2024 [UNIT Y] ANEUP LOIDY NIPT monosomy X LOW RISK <1 in 10,000 normal Not Available [facility] [address], [place], [address], 08/29/2024 17:09:49 08/30/19 25 08/29/2024 [UNIT Y] ANEUP LOIDY NIPT trisomy 13 LOW RISK <1 in 10,000 normal Not Available [address] [address], [place], [address], 08/29/2024 17:09:49 08/30/19 25 08/29/2024 [UNIT Y] ANEUP LOIDY NIPT trisomy 18 LOW RISK <1 in 10,000 normal Not Available [facility] [address], [place], [address], 08/29/2024 17:09:49 08/30/19 25 08/29/2024 [UNIT Y] ANEUP LOIDY NIPT trisomy 21 LOW RISK <1 in 10,000 normal Not Available [address] [address], [place], [address], 08/29/2024 17:09:49 08/30/19 25 08/29/2024 [UNIT Y] ANEUP LOIDY NIPT sex FEMALE normal Not Available [facility] [address], [place], [address], 08/29/2024 17:09:49 08/30/19 25 08/29/2024 [UNIT Y] ANEUP LOIDY NIPT gestation SINGLE TON normal Not Available [facility] [address], [place], [address], 08/29/2024 17:09:49 08/30/1908/29/2024 [UNIT Y] ANEUP LOIDY NIPT for detailed report, see pdf See PDF normal Not Available [facility] [address], [place], [address], 08/29/2024 17:09:49 11/22/1911/21/2024 CULTU RE: URINE result report SEE RESULT S BELOW Test: Cultu re: Urine Speci men Sourc e: Urine - Clean Catch Speci men Type: Urine Speci men Date: 2024 1309 Resul t Date: 2024 0251 Resul t Statu s: Final resul t Abnor mal: No Resul ting Lab: [facility] [address] [facility] [address] Tel: CULTU RE ----- ----- ----- --- No growt h in 1 day (dete ction level of 10,00 0 colon ies / ml.) Not Available [facility] (Lab) [address] [facility], [place], [address], 11/23/2024 03:57:03 11/22/19 25 11/21/2024 drug romi martinez, urine Cannabinoids : positi ve Not Available [facility] [address], [place], [address], 11/21/2024 12:00:41 01/03/20 25 01/02/2025 GTT - GESTA CHRIS Pablito Martinez, ACOG OB glucose, 1 hour screen 99 mg/dL 70-135 Not Available [facility] (Lab) [address], [place], [address], 01/03/2025 13:30:02 01/03/20 25 01/02/2025 HIV 1/2 ANTIG EN/AN TIBOD Y, REFLE X CONFI RMATI ON HIV antigen/anti body Nonrea ctive nonrea ctive HIV-1 antig en and HIV-1 /HIV- 2 antib odies were not detec piedad. No labor atory evide nce of HIV infec tion. Not Available [facility] (Lab) [address], [place], [address], 01/03/2025 13:30:03 01/03/20 25 01/02/2025 HEMAT OCRIT (HCT) HCT 33.9 % (based on docume nted legal sex) 34.0-4 5.0 low Not Available [facility] (Lab) [address], [place], [address], 01/03/2025 13:30:04 01/03/20 25 01/02/2025 HEMOG LOBIN (HGB) HGB 10.8 g/dL (based on docume nted legal sex) 11.6-1 5.4 low Not Available [facility] (Lab) [address], [place], [address], 01/03/2025 13:30:05 01/03/20 25 01/02/2025 RPR SCREE N, REFLE X TITER /CONF IRMAT ION RPR qualitative Nonrea ctive nonrea ctive Not Available [facility] (Lab) [address], [place], [address], 01/03/2025 13:30:06 10/23/19 25 10/22/2024 US, jean tric, 2nd or 3rd trime ster No observ ation record ed. [email or web address] [place] [address] [address], [place], [address], 10/22/2024 18:24:10 10/23/19 25 10/22/2024 US, obstminerva tric, 2nd or 3rd trime ster No observ ation record ed. [email or web address] [address] [address], [place], [address], 10/22/2024 14:16:26 11/22/19 25 11/21/2024 US, jean caldwell, follo w-up No observ ation record ed. [facility] [address], [place], [address], 11/21/2024 18:34:46 11/22/19 25 11/21/2024 US, obste tric, follo w-up No observ ation record ed. [email or web address] [address] [address], [place], [address], 11/21/2024 18:15:58 01/03/20 25 01/02/2025 US, obste tric, follo w-up No observ ation record ed. [email or web address] [facility] [address], [place], [address], 01/02/2025 18:27:04 01/03/20 25 01/02/2025 US, obste tric, follo w-up No observ ation record ed. [email or web address] [facility] [address], [place], [address], 01/28/2025 11:17:52 02/03/20 25 02/02/2025 imagi ng/di agnos tic resul t No observ ation record ed. [facility] [address], [place], [address], 02/18/2025 04:05:20 Result Notes None recorded. Problems Name Problem SNOMED Code Status Onset Date Resolution Date Notes Provider Name and Address Organization Details Recorded Time Cystic fibrosis 433929643 Completed Carrier Sandy Sales CNM [address], [place], [address], [place] [facility] 4 14:15:16 Seizure disorder 023151262 Completed childhoo d, not currentl y on meds Sandy Sales CNM [address], [place], [address], [place] [facility] 4 14:15:16 Deliveri es by [id number] Completed repeat Sandy Sales CNM [address], [place], [address], [facility] 4 14:15:16 Pregnanc y 50807727 Completed 202309/29/2023 CHAR June [facility], [facility] 5 11:35:59 Seizure disorder 234971624 Active 2024 Jennifer Song [facility], [facility] 5 12:23:46 Pregnanc y 89012989 Active 2024 CHARMeggan Watkins [facility], [facility] 5 11:35:59 Past pregnanc y history of section 142510403 Active 2024 x3, repeat YESSENIA CHAKRABORTY MD [address], [place], [address], [facility] 5 16:56:42 Problem Notes None recorded. Procedures Surgical History Date Name Laterality Status Provider Name and Address Organization Details Recorded Time 5 Date of Last Pap Smear completed Jennifer Song [facility] 07/18/2024 12:21:36 4 SECTION (SURG) completed Michelle Georges [facility] 09/26/2023 14:01:00 4 tooth extraction completed [facility] 04/19/2023 14:15:59 2 section completed [facility] 02/15/2023 15:59:55 8 section completed [facility] 02/15/2023 15:59:40 Imaging Results None recorded. [...] Address Organization Details Last Updated DateTime 01/18/2025 364370.72 302 g 42.2 kg/m2 162.56 cm 123/64 mm[Hg] Meli Brooks [facility] 01/18/2025 14:11:08 Social History Question Answer Notes LastModified by Organizat ion Details LastModified Time Tobacco Smoking Status Former Smoker Jennifer infante, [facility] 07/18/2024 12:23:04 If You Are , What Was Your Level Of Alcohol Consumption Prior To ? Occasional [email or web address] Information not available 07/18/2024 Are You Blind [...] Or The Highest Degree You Have Received? [id number] Information not available 05/17/2023 Are There Any [...] Have Difficulty Walking Or Climbing Stairs? No [email or web address] Information not available 08/01/2023 Sex: Unknown Functional Status Question Answer Note LastModified by Organizat ion Details LastModified Time Do you use any illicit or recreational drugs? No Information not available 05/17/2023 Do you or have you ever used any other forms of tobacco or nicotine? Yes [email or web address] Information not available 06/27/2024 What is your level of alcohol consumption? None Information not available 05/17/2023 Are you able to walk independently without assistance or assistive devices? YESWOREST Information not available 05/17/2023 Are you able to care for yourself independently? Yes [email or web address] Information not available 08/01/2023 Do you have difficulty dressing, bathing, grooming, or toileting? No [email or web address] Information not available 08/01/2023 Do you or have you ever used e-cigarettes or vape? Current user of electronic cigarettes [email or web address] Information not available 06/27/2024 What is your exercise level? None Information not available 05/17/2023 Mental Status Question Answer Note LastModified by Organization D etails LastModified Time Do you feel stressed (tense, restless, nervous, or anxious, or unable to sleep at night)? [id number] Information not available 05/17/2023 Family History Relationship [...] ICD10 Code Diagnosis IMO Codes Diagnosis Note [id number] YESSENIA CHAKRABORTY MD [facility] [address] [address] 12/19/2024 11:57:38 12/19/2024 12:53:20 Past history of section 939966777 Z98.891 529270 - x3- plan to repeat screening 2437 99501 Z36.89 Gestation period, 29 weeks 58208727 Z3A.29 9253497 - continue PNV [id number] YESSENIA CHAKRABORTY MD [facility] [address] [address] 01/02/2025 15:56:45 01/02/2025 16:40:41 Uterine size for dates discrepancy 533868249 O26.843 Z3A.31 4182320 240253 YESSENIA CHAKRABORTY MD [facility] [address],[place] [address] 01/02/2025 16:26:38 01/02/2025 17:24:21 Past history of section 802553540 Z98.891 090122 - x3- plan to repeat Gestation period, 31 weeks 11260788 Z3A.31 7725672 - continue PNV [id number] YESSENIA CHAKRABORTY MD [facility] [address],[place] [address] 01/18/2025 13:59:43 01/18/2025 14:49:41 Past history of section 399248546 Z98.891 466804 - x3- plan to repeat, scheduled 03/04/25 Gestation period, 33 weeks 26700413 Z3A.33 4515586 - continue PNV Health Concerns Section Related Observation LastModified by Organization Detai ls LastModified Time None Recorded Concern Status LastModified by Organization Details LastModified Time None Recorded Payers Encounter Date Sequence Insurance Name Policy Number Policy Beck Covered Member ID Beck Member ID Guarantor Name 01/18/2025 1 [facility] (MEDICAID HMO) [id number] Dontedee Augie [id number] Sriram Ghosh Notes Date Note Type Note Provider Name and Address Organization Details Recorded Time 01/18/2025 text/html Generic HPI TemplateReported by Patient YESSENIA CHAKRABORTY MD [address], [place], [address], [facility] 01/18/2025 14:43:15 OBGyn Episode Ob Episode Information Episode Created Date Number of Fetuses Patient Bloodtype Patient rh Status Prepregnancy Weight lbs Domestic Partner Domestic Partner Phone Father Name Chemical Lab Supervisor Status 08/28/19 25 1 O Positive 229.6 Oscar OPEN Fetus Data First Name Last Name Admitted to NICU Weight (g) Sex Living Outcome Pediatric Complications Fetus ID Race Codes Race Delivery Type [id number] Problems Problem Notes Problem Name Start Date End Date Resolution Snomed Code Not e Past history of section 08/30/2024 675518906 x3, repeat Conrado Calculation Initial Conrado Date Initial Exam Date Initial Exam Provider Initial Ultrasound Date Last Menstrual Period Date Ultra Sound Weeks Gestation 03/06/2025 08/27/2024 [email or web address] 08/23/2024 12 Eighteen To Twenty Week Conrado [...] Type Weight in lbs Pre/Post Dialysis Refused 229.868261464269 BP Diastolic BP Location Tested BP Systolic BP Type 85 L arm 123 sitting Fetus Heart Rate Present A 153 Fetus Movement Comments Patient presents to [facility] care. Hx of c section x3, [...] Weight in lbs Pre/Post Dialysis Refused Weight 229.789207405071 BP Diastolic BP Location Tested BP Systolic [...] Weight in lbs Pre/Post Dialysis Refused Weight 232.0060647796 BP Diastolic BP Location Tested BP Systolic [...] Type Weight in lbs Pre/Post Dialysis Refused 237.058951628308 BP Diastolic BP Location Tested BP Systolic [...] Type Weight in lbs Pre/Post Dialysis Refused 242.248264131793 BP Diastolic BP Location Tested BP Systolic [...] Weight in lbs Pre/Post Dialysis Refused Weight 244.907232028442 BP Diastolic BP Location Tested BP Systolic [...] Type Weight in lbs Pre/Post Dialysis Refused 246.988119143381 BP Diastolic BP Location Tested BP Systolic [...] Weight in lbs Pre/Post Dialysis Refused Weight 205.331849248655 BP Diastolic BP Location Tested BP Systolic [...] Weight in lbs Pre/Post Dialysis Refused Weight 254.388982240626 BP Diastolic BP Location Tested BP Systolic [...] Type Weight in lbs Pre/Post Dialysis Refused 254.104608389316 BP Diastolic BP Location Tested BP Systolic [...] Weight in lbs Pre/Post Dialysis Refused Weight 256.189966494227 BP Diastolic BP Location Tested BP Systolic [...] Estim ated Date of Delivery false Thalassemia (Chinese, Cymro, Mediterranean, Or Background): MCV < 80 false Neural Tube Defect (Meningomyelocele, Spina Bifi da, Or Anencephaly) false Congenital Heart Defect false Down Syndrome false Douglas-Sachs (eg, Spiritism, Cajun, Yakut-Chapin) f alse Ned Disease false Sickle Cell Disease Or Trait () false Hemophilia Or Other Blood Disorders false Muscular Dystrophy false Cystic Fibrosis false Belmont's Chorea false Intellectual Disability/Autism false Other Inherited [...]
[2025-02-23 21:46] VITALS: BP 130/75; PULSE 87
[2025-02-23 22:01] VITALS: BP 133/85; PULSE 90
--- NOTE | 2025-02-23 22:12 | PC.NURSE ---
Dr. Livingston called and notified of patient arrival to the unit with complaints of decreased movement that occurred after a fall today around [id number]. Patient stated that she is not feeling any pain or contractions at this time. MD notified that there is no complaint of vaginal bleeding or leaking of fluids. Patient stated that movement increased in the car on her way to the unit. MD notified of reassuring heart tones, contractions every 2.5-6.5 minutes and that patient is marking movement on the monitor. New orders received to discharge patient at this time.
[2025-02-23 22:19] VITALS: BP 130/75; PULSE 78
== END 2025-02-23 22:19 | disposition home or self-care (01) ==
LOC: ANHOBOP 21:27 → ANHOBPP 21:28
PROVIDERS: Visit Provider Obstetrics & Gynecology
DX: Z34.90 Encounter for supervision of normal pregnancy, unspecified, unspecified trimester (principal); Z3A.00 Weeks of gestation of pregnancy not specified
CPT/HCPCS: 59025